=== PATIENT | female | born 1955 | race Caucasian/White ===

== ENCOUNTER 2017-03-09 08:32 | Inpatient (IN) | payer OTHER, MEDICARE ==
[2017-03-09] VITALS (12 sets, daily range): BP systolic 116–156; BP diastolic 54–71; PULSE 67–83; RESP 13–25; TEMP 97.6–98.4; O2SAT 95–99
[~2017-03-09] VITALS: Ht 165.1 cm; Wt 103.7 kg
[~2017-03-09 08:32] MED LIST: GEMF600T PO; GLUC1000 PO; HYDR12.57 PO; MULTCAP OR; PRAV40TA2 PO; TIZA4CAP PO; TRAM50TA PO; WARF1TAB PO
[2017-03-09] MEDS ORDERED: GLIP5TAB8 PO (09:01)
[2017-03-09] MEDS ORDERED: XARE20TA PO (09:01)
[2017-03-09] MEDS ORDERED: METF500T PO (09:01)
[2017-03-09] MEDS ORDERED: TIZA4CAP3 PO (09:01)
[2017-03-09] MEDS ORDERED: HYDR-3535 PO (09:01)
[2017-03-09] MEDS ORDERED: CANA300T PO (09:01)
[2017-03-09] MEDS ORDERED: DIVA250T PO (09:01)
[2017-03-09] MEDS ORDERED: GABA300C5 PO (09:01)
[2017-03-09 09:51] LABS: AUTOMATED NEUTROPHIL # 4.2 TH/MM3 (1.8-7.7); BASOPHIL # 0.1 TH/MM3 (0-0.2); EOSINOPHIL # 0.1 TH/MM3 (0-0.4); EOSINOPHIL % 1.4 % (0.0-4.0); HEMATOCRIT 44.9 % (35.0-46.0); HEMO FLAGS DIFF FINAL; LYMPH % 22.9 % (9.0-44.0); LYMPHOCYTE # 1.5 TH/MM3 (1.0-4.8); MEAN CELL VOLUME 88.7 FL (80.0-100.0); MEAN CORPUSCULAR HEMOGLOBIN 29.4 PG (27.0-34.0); MEAN CORPUSCULAR HGB CONC 33.1 % (32.0-36.0); NEUT % 66.7 % (16.0-70.0); PLATELET COUNT 149 TH/MM3 (150-450); RED BLOOD COUNT 5.06 MIL/MM3 (4.00-5.30); RED CELL DISTRIBUTION WIDTH 12.9 % (11.6-17.2); WHITE BLOOD COUNT 6.3 TH/MM3 (4.0-11.0)
[2017-03-09] MEDS ORDERED: SODIUM CHLOR 0.9% 1000 ML INJ 1,000 ML IV SCH (10:00)
[2017-03-09 10:01] LABS: APTT (PATIENT) 24.6 SEC (24.3-30.1); INTERNATIONAL NORMALIZED RATIO 0.9 RATIO; PROTHROMBIN TIME - PATIENT 9.9 SEC (9.8-11.6)
[2017-03-09 10:16] LABS: BICARBONATE 25.4 MEQ/L (21.0-32.0)
[2017-03-09 10:23] LABS: POTASSIUM 4.3 MEQ/L (3.5-5.1)
[2017-03-09] MEDS ORDERED: fentaNYL CITRATE 250 MCG/5 ML AMP ONE (11:02)
[2017-03-09] MEDS ORDERED: MIDAZOLAM HCL 5 MG/5 ML VIAL ONE (11:02)
[2017-03-09] MEDS ORDERED: STERILE WATER FOR INJECTION 10 ML VIAL ONE (12:11)
[2017-03-09] MEDS ORDERED: HEPARIN-D5W INJ 250 ML ONE (12:46)
[2017-03-09] MEDS ORDERED: IOHEXOL 350 MG/ML 100 ML BTL (for Cath Lab) OTHER ONE (13:08)
[2017-03-09] MEDS ORDERED: MORPHINE SULFATE 4 MG/ML INJ IV PRN (14:15)
[2017-03-09] MEDS ORDERED: ONDANSETRON HCL 4 MG/2 ML VIAL IV PRN ×2 (14:15→16:30)
[2017-03-09] MEDS ORDERED: Intra-Venous ALTEPLASE 10 MG/500 ML NS IV SCH ×2 (14:15)
[2017-03-09] MEDS ORDERED: HEPARIN 25,000 UNITS/250 ML D5W IV SCH (14:15)
[2017-03-09] MEDS: Intra-Venous SODIUM CHLORIDE 0.9% IV LINE 1000 ML IV SCH (14:15)
[2017-03-09] MEDS ORDERED: Intra-Venous HEPARIN 1,000 UNITS/500 ML NS (PRN) IV ×2 (14:15)
[2017-03-09] MEDS ORDERED: SENNOSIDES 8.6 MG TAB PO PRN (16:30)
[2017-03-09] MEDS ORDERED: DEXTROSE 50% IN WATER 50 ML VIAL(D50) IV PRN (16:30)
[2017-03-09] MEDS ORDERED: CHLORHEXIDINE GLUCONATE 2 % 1 PACK (2 CLOTHS) TOP PRN (16:30)
[2017-03-09] MEDS ORDERED: MAGNESIUM HYDROXIDE SUSP 30 ML CUP PO PRN (16:30)
[2017-03-09] MEDS ORDERED: RESP: ALBUTEROL 2.5 MG/IPRATROPIUM 0.5 MG NEB (PRN) INH (16:30)
[2017-03-09] MEDS ORDERED: ACETAMINOPHEN 325 MG TAB PO PRN (16:30)
[2017-03-09] MEDS ORDERED: MISCELLANEOUS NURSING INFORMATION XX SCH (16:30)
[2017-03-09] MEDS ORDERED: BISACODYL 10 MG SUPP RECTAL PRN (16:30)
[2017-03-09] MEDS ORDERED: LACTULOSE SYRUP 20 GM/30 ML CUP PO PRN (16:30)
[2017-03-09] MEDS ORDERED: GLUCAGON 1 MG/ML VIAL OTHER PRN (16:30)
--- NOTE | 2017-03-09 16:46 | RADRPT ---
EXAM DATE/TIME: 03/09/2017 11:18 COMPARISON: VENOGRAM IVC W RETRIEVABLE FILTER PLACEMENT, March 09, 2017, 11:18. INDICATIONS : Patient is in need of a pelvic venogram for evaluation of venous thrombus. MEDICAL HISTORY : History of left lower leg DVT, leg edema, peripheral neuropathy, DM. SURGICAL HISTORY : History of cervical fusion, hysterectomy, appendectomy, melanoma excision. ENCOUNTER: Initial ACUITY: 2 months PAIN SCORE: 5/10 LOCATION: Right shoulder, left leg FLUORO TIME: 7.8 minutes IMAGE SERIES: 13 ACCESS SITE: Left femoral vein SEDATION TIME: 110 minutes CONTRAST: 1.) 75 cc Omnipaque (iohexol) 350 MEDICATION(S): 1.) 5 mg midazolam (Versed) IV 2.) 250 mcg fentanyl (Sublimaze) IV DEVICE(S): 1.) inferior vena cava EV3 Infusion catheter 4Fr/ 20cm x 100cm PROCEDURE: 1. Ultrasound guided left common femoral vein catheterization 2. Iliac venography 3. Inferior venacavography 4. Inferior vena caval non-selective catheterization 5. Infusion for thrombolysis TECHNIQUE: The patient was placed supine on the angiography table. The left groin was prepped in sterile fashion . Full sterile technique was used, including cap, mask, sterile gloves and gown and a large sterile s heet. Hand hygiene and 2% chlorhexidine and/or betadine/alcohol prep was utilized per protocol for cu taneous antisepsis. The skin and subcutaneous tissues were infiltrated with lidocaine solution. Blunt dissection was utilized to free up the tissues superficial to the common femoral vein. Under direct ultrasound guidance, micropuncture access was accomplished into the common femoral vein allowing plac ement of a 7 Macedonian vascular sheath. The ultrasound images depicting access guidance were saved and s tored to PACS for permanent record. Iliac venography and inferior venacavography was performed. An angled catheter and Glidewire combinat ion was manipulated through an occluded left common iliac vein into the IVC and additional venography was performed. A 20 cm infusion length multiside hole catheter was introduced and positioned so as t o span the left iliac occlusion up into the clot filled IVC. The infusion catheter and sheath were se cured. The patient was taken to recovery in satisfactory stable condition. An inferior vena caval zena ter was placed concomitantly. Please see that separate report for additional details. FINDINGS: The left common iliac vein is totally occluded with flow through multiple transpelvic collaterals to the right iliac system reconstituting flow into the IVC. The occlusion was traversed with little diff iculty, some slight resistance met at the right common iliac artery level suggesting a May Thurner co nfiguration underlying stenosis. A large filling defect present in the inferior vena cava from the il iac venous confluence up to the level of the renal veins was noted consistent with nonocclusive throm bus. CONCLUSION: Ileocaval venous thrombosis as described. Thrombolytic therapy has been initiated. We will followup t he venographic appearance in the morning. Jaret Garzon MD on March 09, 2017 at 16:25 Board Certified Radiologist. This report was verified electronically.
[2017-03-09 16:47] LABS: AUTOMATED NEUTROPHIL # 2.7 TH/MM3 (1.8-7.7); BASOPHIL % 0.8 % (0.0-2.0); EOSINOPHIL # 0.1 TH/MM3 (0-0.4); EOSINOPHIL % 1.5 % (0.0-4.0); HEMATOCRIT 39.7 % (35.0-46.0); HEMO FLAGS DIFF FINAL; LYMPH % 36.2 % (9.0-44.0); LYMPHOCYTE # 1.8 TH/MM3 (1.0-4.8); MEAN CELL VOLUME 87.9 FL (80.0-100.0); MEAN CORPUSCULAR HEMOGLOBIN 29.7 PG (27.0-34.0); MEAN CORPUSCULAR HGB CONC 33.8 % (32.0-36.0); MONO % 7.2 % (0.0-8.0); NEUT % 54.3 % (16.0-70.0); PLATELET COUNT 133 TH/MM3 (150-450); RED BLOOD COUNT 4.52 MIL/MM3 (4.00-5.30); RED CELL DISTRIBUTION WIDTH 12.9 % (11.6-17.2); WHITE BLOOD COUNT 4.9 TH/MM3 (4.0-11.0)
--- NOTE | 2017-03-09 16:49 | RADRPT ---
EXAM DATE/TIME: 03/09/2017 11:18 [place] COMPARISON: No previous studies available for comparison. INDICATIONS : Patient is in need of placement of a retrievable vena cava filter due to venous thrombus. MEDICAL HISTORY : History of left lower leg DVT, leg edema, peripheral neuropathy, DM. SURGICAL HISTORY : History of cervical fusion, hysterectomy, appendectomy, melanoma excision. ENCOUNTER: Initial ACUITY: 2 months PAIN SCORE: 5/10 LOCATION: Right shoulder, left leg FLUORO TIME: 7.8 minutes IMAGE SERIES: 2 ACCESS SITE: Right Internal jugular vein SEDATION TIME: 110 minutes CONTRAST: 20 cc Omnipaque (iohexol) 350 MEDICATION(S): 1.) 5 mg midazolam (Versed) IV 2.) 250 mcg fentanyl (Sublimaze) IV DEVICE(S): 1.) IVC Bard Armida filter Jugular retrievable PROCEDURE : 1. Ultrasound-guided venipuncture. 2. Inferior venacavogram. 3. Inferior vena cava filter placement. 4. Conscious sedation with continuous EKG and oximetry monitoring. The risks, benefits and alternatives to the procedure were explained and verbal and written consent w as obtained. The site was prepped in sterile fashion. Full sterile technique was used, including ca p, mask, sterile gloves and gown and a large sterile sheet. Hand hygiene and 2% chlorhexidine and/or betadine/alcohol prep was utilized per protocol for cutaneous antisepsis. The skin and subcutaneous tissues were infiltrated with local anesthetic solution. With ultrasound and fluoroscopic guidance the targeted vein was punctured and a vascular sheath was p laced. Inferior venacavogram was performed. IVC thrombus was identified extending to a position just above the renal venous confluence. The supra renal cava is otherwise clear. A retrievable vena caval filter was placed in the suprarenal IVC. Foll owing deployment the filter was identified in good position. Conscious sedation was performed with the prescribed dosages and duration as above in the presence of an independent trained radiology nurse to assist in the monitoring of the patient. EKG and oximetry remained stable throughout the procedure. The patient tolerated the procedure well and there were n o complications. The patient was sent to post anesthesia recovery in stable condition. CONCLUSION: Uncomplicated inferior vena cava filter placement as above. Jaret Garzon MD on March 09, 2017 at 16:44 Board Certified Radiologist. This report was verified electronically.
[2017-03-09 16:59] LABS: APTT (PATIENT) 32.5 SEC (24.3-30.1)
--- NOTE | 2017-03-09 17:53 | HHI.HP ---
HPI Service Critical Care Medicine Primary Care Physician Domingo Macias MD Admission Diagnosis DVT Diagnosis: Chief Complaint: Left leg pain and swelling Travel History International Travel<30 Days: No Contact w/Intl Traveler <30 Da: No Traveled to Known Affected Are: No History of Present Illness 61 y/o woman with impressive family history of DVT problems presents with a swollen left leg. Found is extensive thrombosis of left iliac system up to the level of the renal veins. A retrievable IVC filter was placed above the caval clot and infusion catheter was placed in the thrombus via the left common femoral vein. Continuous tPA is now being infused through the groin catheter and peripheral heparin infusing as well. She has no complaints of SOB or chest pain. Her daughter is at the bedside and also has an IVC filter, as well as a few other family members. The patient states she had no problems with DVT during her pregnancies. Review of Systems Constitutional: DENIES: Diaphoretic episodes, Fatigue, Fever, Weight gain, Weight loss, Chills, Dizziness, Change in appetite, Night Sweats Endocrine: DENIES: Abnorml menstrual pattern, Heat/cold intolerance, Polydipsia , Polyuria, Polyphagia Eyes: DENIES: Blurred vision, Diplopia, Eye inflammation, Eye pain, Vision loss , Photosensitivity, Double Vision Ears, nose, mouth, throat: DENIES: Tinnitus, Hearing loss, Vertigo, Nasal discharge, Oral lesions, Throat pain, Hoarseness, Ear Pain, Running Nose, Epistaxis, Sinus Pain, Toothache, Odynophagia Respiratory: DENIES: Apneas, Cough, Snoring, Wheezing, Hemoptysis, Sputum production, Shortness of breath Cardiovascular: COMPLAINS OF: Lower Extremity Edema, DENIES: Chest pain, Palpitations, Syncope, Dyspnea on Exertion, PND, Orthopnea, Claudication Gastrointestinal: DENIES: Abdominal pain, Black stools, Bloody stools, Constipation, Diarrhea, Nausea, Vomiting, Difficulty Swallowing, Anorexia Musculoskeletal: DENIES: Joint pain, Muscle aches, Stiffness, Joint Swelling, Back pain, Neck pain Integumentary: DENIES: Abnormal pigmentation, Pruritus, Rash, Nail changes, Breast masses, Breast skin changes, Nipple discharge Immunologic/allergic: DENIES: Eczema, Urticaria Past Family Social History Allergies: Coded Allergies: Bactrim (Verified Allergy, Severe, Hives, 03/09/17) Cipro (Verified Allergy, Severe, HIVES, 03/09/17) Physical Exam Vital Signs Vital Signs Date Time Temp Pulse Resp B/P Pulse Ox O2 Delivery O2 Flow Rate FiO2 03/09/17 16:30 68 18 128/67 98 03/09/17 16:30 98 Room Air 03/09/17 15:15 98 Room Air 03/09/17 15:15 67 18 116/54 98 03/09/17 14:45 69 20 125/68 97 03/09/17 14:45 96 Room Air 03/09/17 14:00 96 Room Air 03/09/17 14:00 70 20 136/67 96 03/09/17 13:54 80 20 143/70 96 03/09/17 13:10 98.3 68 20 141/69 96 03/09/17 13:10 96 Room Air 03/09/17 08:51 98.3 83 20 122/71 98 03/09/17 08:49 98 Room Air Physical Exam Gen: Calm Head: Normal. Neck: Supple, no stridor. Dry dressing right anterior neck. Lungs: Clear, no wheezes or crackles. Comfortable pattern. Heat: NL S1S2, no m,r. No JVD. Abdomen: Soft, no guarding. No tenderness, BS active. Extremities: Warm, well perfused. Generalized swelling left leg. Neuro: O X 3, alert, cooperative. M/S grossly intact. Speech clear. Laboratory Laboratory Tests Test 03/09/17 03/09/17 09:27 16:10 White Blood Count 6.3 4.9 Red Blood Count 5.06 4.52 Hemoglobin 14.9 13.4 Hematocrit 44.9 39.7 Mean Corpuscular Volume 88.7 87.9 Mean Corpuscular Hemoglobin 29.4 29.7 Mean Corpuscular Hemoglobin 33.1 33.8 Concent Red Cell Distribution Width 12.9 12.9 Platelet Count 149 133 Mean Platelet Volume 9.2 9.0 Neutrophils (%) (Auto) 66.7 54.3 Lymphocytes (%) (Auto) 22.9 36.2 Monocytes (%) (Auto) 8.0 7.2 Eosinophils (%) (Auto) 1.4 1.5 Basophils (%) (Auto) 1.0 0.8 Neutrophils # (Auto) 4.2 2.7 Lymphocytes # (Auto) 1.5 1.8 Monocytes # (Auto) 0.5 0.4 Eosinophils # (Auto) 0.1 0.1 Basophils # (Auto) 0.1 0.0 CBC Comment DIFF FINAL DIFF FINAL Differential Comment Prothrombin Time 9.9 Prothromb Time International 0.9 Ratio Activated Partial 24.6 32.5 Thromboplast Time Sodium Level 131 Potassium Level 4.3 Chloride Level 100 Carbon Dioxide Level 25.4 Anion Gap 6 Blood Urea Nitrogen 10 Creatinine 0.71 Estimat Glomerular Filtration 83 Rate Random Glucose 347 Calcium Level 9.1 Fibrinogen 275 Result Diagram: 03/09/17 1610 03/09/17 0927 Imaging Venography - DVT extending from left iliofemoral system up to renal veins. Assessment and Plan Assessment and Plan Assessment: 1. Extensive deep venous thrombosis left leg, extending to level of renal veins. 2. IVC filter placement from neck approach. 3. DM, Type 2 Plan: 1. Directed tPA infusion. 2. Peripheral heparin infusion. 3. Hold oral diabetes agents. 4. SSI for euglycemia q4h. 5. strict bed rest. 6. Richards. 7. Protonix. 8. No SCDs. Overall impression: Emergency insertion IVC filter and thrombolytic therapy for large left leg/vena caval thrombus. Patient normotensive and well perfused. Normal respiratory status. Wero Miner MD Mar 09, 2017 17:53
[2017-03-09] MEDS: MORPHINE SULFATE 4 MG/ML INJ IV PRN ×3 (18:05→22:35)
[2017-03-09] MEDS: DOCUSATE SODIUM 50 MG/SENNA 8.6 MG TAB PO SCH (20:32)
[2017-03-09] MEDS: GABAPENTIN 300 MG CAP PO SCH (20:32)
[2017-03-09] MEDS: FAMOTIDINE 20 MG TAB PO SCH (20:32)
[2017-03-09] MEDS: DIVALPROEX SODIUM DELAYED RELEASE 250 MG TAB PO SCH (21:01)
[2017-03-09] MEDS: INSULIN ASPART SUPPLEMENTAL SCALE SQ SCH (21:08)
[2017-03-09] MEDS: ACETAMINOPHEN/HYDROcodone 325 MG/10 MG TAB PO PRN (22:35)
[2017-03-10] VITALS (10 sets, daily range): BP systolic 103–147; BP diastolic 57–65; PULSE 66–83; RESP 10–18; TEMP 97.4–98.5; O2SAT 93–96
[2017-03-10 02:08] LABS: APTT (PATIENT) 26.8 SEC (24.3-30.1)
[2017-03-10] MEDS: CHLORHEXIDINE GLUCONATE 2 % 1 PACK (2 CLOTHS) TOP SCH (04:00)
[2017-03-10] MEDS: MORPHINE SULFATE 4 MG/ML INJ IV PRN ×3 (05:38→17:31)
[2017-03-10] MEDS: ACETAMINOPHEN/HYDROcodone 325 MG/10 MG TAB PO PRN ×3 (05:38→20:54)
[2017-03-10] MEDS: INSULIN ASPART SUPPLEMENTAL SCALE SQ SCH ×6 (05:40→22:31)
[2017-03-10] MEDS: FAMOTIDINE 20 MG TAB PO SCH ×2 (09:30→20:54)
[2017-03-10] MEDS: DIVALPROEX SODIUM DELAYED RELEASE 250 MG TAB PO SCH ×2 (09:30→20:54)
[2017-03-10] MEDS: DOCUSATE SODIUM 50 MG/SENNA 8.6 MG TAB PO SCH ×2 (09:30→20:54)
[2017-03-10] MEDS: GABAPENTIN 300 MG CAP PO SCH ×2 (09:30→20:54)
[2017-03-10] MEDS ORDERED: fentaNYL CITRATE 250 MCG/5 ML AMP ONE (10:06)
[2017-03-10] MEDS ORDERED: MIDAZOLAM HCL 5 MG/5 ML VIAL ONE (10:06)
[2017-03-10] MEDS ORDERED: IOHEXOL 350 MG/ML 100 ML BTL (for Cath Lab) IV ONE (11:45)
[2017-03-10] MEDS: Intra-Venous SODIUM CHLORIDE 0.9% IV LINE 1000 ML IV SCH (12:16)
[2017-03-10] MEDS ORDERED: HEPARIN 25,000 UNITS-D5W 250 ML - PREMIX IV SCH (13:00)
--- NOTE | 2017-03-10 14:07 | PD.TRANSFR ---
Transfer Summary Admission Date Mar 09, 2017 at 16:55 Transfer Date: Mar 10, 2017 Admitting Diagnosis DVT Diagnoses: Significant Findings Acute thrombosis left iliofemoral system and IVC. Transfer Summary/Subjective 61 y/o woman with impressive family history of DVT problems presents with a swollen left leg. Found is extensive thrombosis of left iliac system up to the level of the renal veins. A retrievable IVC filter was placed above the caval clot and infusion catheter was placed in the thrombus via the left common femoral vein. Continuous tPA is now being infused through the groin catheter and peripheral heparin infusing as well. She has no complaints of SOB or chest pain. Her daughter is at the bedside and also has an IVC filter, as well as a few other family members. The patient states she had no problems with DVT during her pregnancies. 03/10: Vena Cava thrombus successfully lysed and IVC filter removed. Patient has undiagnosed familial clotting problem. She formed this potentially lethal clot while on xarelto. We will keep her on a heparin infusion and ask the Hematology Service to make recommendations for ongoing prevention. Update: Note from Hematology reviewed and appreciated. Dr. Garzon from feels she can be switched to Pradaxa anytime now. I will start Pradaxa in a.m. and stop heparin drip one hour later. Objective Vital Signs Date Time Temp Pulse Resp B/P Pulse Ox O2 Delivery O2 Flow Rate FiO2 03/10/17 09:00 19 03/10/17 08:00 98.2 66 135/62 96 03/10/17 07:00 Room Air 03/09/17 16:30 99 Intake and Output 03/09/17 03/09/17 03/10/17 08:00 16:00 00:00 Intake Total 540 ml 819 ml Output Total 400 ml 900 ml Balance 140 ml -81 ml Result Diagram: 03/09/17 1610 03/09/17 0927 Imaging Venography - DVT extending from left iliofemoral system up to renal veins. Objective Remarks Gen: Calm Head: Normal. Neck: Supple, no stridor. Dry dressing right anterior neck. Lungs: Clear, no wheezes or crackles. Comfortable pattern. Heat: NL S1S2, no m,r. No JVD. Abdomen: Soft, no guarding. No tenderness, BS active. Extremities: Warm, well perfused. Generalized swelling left leg. Neuro: O X 3, alert, cooperative. M/S grossly intact. Speech clear. A/P Assessment and Plan Assessment: 1. Extensive deep venous thrombosis left leg, extending to level of renal veins. 2. IVC filter placement from neck approach. 3. DM, Type 2 Plan: 1. Directed tPA infusion. 2. Peripheral heparin infusion. 3. Hold oral diabetes agents. 4. SSI for euglycemia q4h. 5. strict bed rest. 6. Richards. 7. Protonix. 8. No SCDs. Overall impression: Emergency insertion IVC filter and thrombolytic therapy for large left leg/vena caval thrombus. Patient normotensive and well perfused. Normal respiratory status. Wero Miner MD Mar 10, 2017 14:07
--- NOTE | 2017-03-10 17:53 | PD.RAD ---
Post Procedure Progress Note Pre Procedure Diagnosis: (1) DVT (deep venous thrombosis) Post Procedure Diagnosis: (1) DVT (deep venous thrombosis) Procedure Date: Mar 10, 2017 Supervising Radiologist: Jaret Garzon Anesthesia: Local, Conscious Sedation Plan of Activity Patient to Unit: Critical Care Patient Condition: Good See PACS Report for procedural detail/treatment Vascular-Venous Procedure Procedure 1 Procedure Site: Abdominal Procedure(s): Angioplasty, Venogram Access Access Site(s): Left Femoral Vein Closure Site(s): Right manual pressure, Left manual pressure Sheath(s) Remaining: Right Jugular Vein Findings: IVC thrombus resolved left iliac vein stenosis treated with PIPELINER IVC filter removed Plan IV heparin hypercoagulability w/u and plan for long-term anticoagulation strategy d/w Jaret Cohen MD Mar 10, 2017 17:53
[2017-03-10 19:12] LABS: AUTOMATED NEUTROPHIL # 5.3 TH/MM3 (1.8-7.7); BASOPHIL % 0.6 % (0.0-2.0); EOSINOPHIL % 0.4 % (0.0-4.0); HEMATOCRIT 38.9 % (35.0-46.0); HEMO FLAGS DIFF FINAL; LYMPH % 19.2 % (9.0-44.0); LYMPHOCYTE # 1.4 TH/MM3 (1.0-4.8); MEAN CELL VOLUME 87.9 FL (80.0-100.0); MONO % 6.1 % (0.0-8.0); NEUT % 73.7 % (16.0-70.0); PLATELET COUNT 121 TH/MM3 (150-450); RED BLOOD COUNT 4.42 MIL/MM3 (4.00-5.30); RED CELL DISTRIBUTION WIDTH 12.5 % (11.6-17.2); WHITE BLOOD COUNT 7.2 TH/MM3 (4.0-11.0)
[2017-03-10 19:20] LABS: APTT (PATIENT) 35.8 SEC (24.3-30.1)
--- NOTE | 2017-03-10 20:32 | MB ---
cc: SCOOTER PEGUERO M.D. DATE OF CONSULTATION: 03/10/2017. REASON FOR CONSULTATION: Hematology was consulted to render opinion regarding a patient with recurrent DVT while on Xarelto. ATTENDING PHYSICIAN: Dr. Miner. HISTORY OF PRESENT ILLNESS: The patient is a very pleasant 61-year-old female with history of left lower extremity venous thrombosis brought into the hospital for thrombolysis and thrombectomy. She had a left lower extremity deep venous thrombosis around 2004. She was treated with Coumadin for several years and reportedly her level was difficult to titrate. She was then switched to Xarelto when Xarelto was available and she has been on Xarelto since then. She stated a few years ago she had ultrasound which still showed residual clots in the left lower extremity, although she was not symptomatic. She said about six months ago her left lower extremity started swelling up but it waxed and waned. Around December her swelling became more persistent. She was admitted to [facility] and she was found to have significant thrombosis of her left lower extremity. She was maintained on Xarelto and was referred to see Dr. Huizar. She was sent to the hospital for thrombolytic therapy. She had IVC filter placement and thrombolytic therapy. She is currently on heparin and states that her left lower extremity edema has significantly improved and it is no longer tender and she could not palpate the cord any more. She denies any constitutional symptoms. Denies any chest pain or palpitations. Denies any shortness of breath or cough. Denies any nausea, vomiting, diarrhea, or abdominal pain. She has a significant family history of deep venous thrombosis. PAST MEDICAL HISTORY: 1. Diabetes mellitus. 2. Fibromyalgia. 3. Degenerative disk disease. 4. Melanoma removed from right shoulder a few years ago. 5. Left lower extremity deep venous thrombosis around 2004 as noted above. PAST SURGICAL HISTORY: 1. Resection of right shoulder melanoma about 4 years ago. 2. Complete hysterectomy. 3. Appendectomy. 4. Tonsillectomy. FAMILY HISTORY: Multiple uncles and aunts as well as cousins on the mother's side had deep venous thrombosis. Her mother also had deep venous thrombosis. Her daughter has a deep venous thrombosis but hypercoagulable testing reportedly was negative. She has two sisters. SOCIAL HISTORY: Smoked half-a-pack a day for 30 years. Denies tobacco use. She is disabled. She lives with her . ALLERGIES: 1. BACTRIM. 2. CIPRO. CURRENT MEDICATIONS: 1. Heparin. 2. Depakote. 3. Gabapentin. 4. Pepcid. 5. Tia-Colace. 6. Zanaflex. REVIEW OF SYSTEMS: CONSTITUTIONAL: Negative. EYES: Negative. ENT: Negative. CARDIOVASCULAR: As above. RESPIRATORY: Negative. GI: Negative. : Negative. MUSCULOSKELETAL: Negative. HEMATOLOGIC: As above. ENDOCRINE: Negative. DERMATOLOGIC: Negative. PSYCHIATRIC: Negative. NEUROLOGIC: Negative. PHYSICAL EXAMINATION: VITAL SIGNS: Temperature 98.1, blood pressure 135/65, O2 saturation 93% room air. GENERAL: She is alert and oriented times three and in no acute distress. HEAD, EYES, EARS, NOSE, THROAT: Atraumatic, normocephalic. Pupils equal, round, reactive to light. Extraocular muscles intact. No scleral icterus. OROPHARYNX: Dry mucosa. No lesions. No thrush. No mucositis. NECK: No thyromegaly. No palpable mass. LYMPHATIC: No palpable cervical, clavicular, axillary or inguinal lymph nodes. CARDIOVASCULAR: Regular S1 and S2. No murmur. LUNGS: Clear to auscultation. No wheezing or rhonchi. ABDOMEN: Abdomen soft and nontender. I could not palpate the liver or spleen. EXTREMITIES: No cyanosis. No clubbing. Her left lower extremity edema has significantly improved. Calf tenderness also has improved. SKIN: No rash or petechiae. NEUROLOGIC EXAM: Nonfocal. LABORATORY DATA: CBC within normal limits. Creatinine 0.71. Platelet count 121,000. ASSESSMENT: 1. Recurrent left lower extremity deep venous thrombosis. She was first diagnosed with left lower extremity venous thrombosis around 2004. The patient was on Coumadin for several years but reportedly the level was difficult to titrate. She was then switched to Xarelto and has been on Xarelto since. She stated she has multiple family members on the mother's side who have had deep venous thrombosis. Her daughter also has had deep venous thrombosis but hypercoagulable testing on her was negative. The patient stated that a year ago she had ultrasound of left lower extremity and was told she had a residual clots. Around six months ago, she started having swelling of left lower extremity and it became persistent in December. She was admitted to the [facility] and ultrasound showed recurrent left lower extremity venous thrombosis. The patient was maintained on Xarelto. She was referred to see Dr. Huizar and subsequently referred to [facility] for thrombolytic therapy. Her ultrasound reportedly showed extensive thrombosis of the left iliac venous system, She had an IVC filter placement and thrombolytic therapy yesterday. She is now on heparin. Her lower extremity edema has resolved and the tenderness also has resolved. She has responded very well. It looks like she has failed Xarelto. I had an extensive discussion with her and her daughter regarding other anticoagulation options. I told her she can go back to Coumadin but she does not want to retry Coumadin. The other option I recommend would be Pradaxa which is a direct thrombin inhibitor and it has a different mechanism of action from Xarelto. She is interested in trying Pradaxa. She will continue heparin for now. Once interventional radiology feels that she can be switched over to an oral agent, then we can start her on Pradaxa. They had many questions today, which were answered. 2. Diabetes mellitus. 3. History of melanoma right shoulder status post resection abut four years ago. No apparent recurrent disease. 4. Fibromyalgia. 5. Degenerative disc disease. 6. Chronic pain. RECOMMENDATIONS: 1. I had an extensive discussion with the patient and her daughter. 2. Continue heparin and when interventional radiology feels the patient can be switched over to an oral agent, we could start her on Pradaxa. Thank you Dr. Miner for asking us to see this patient. MD GEMA Singh/LOIS /7:53 PM /8:21 PM YANET
[2017-03-11] MEDS: MORPHINE SULFATE 4 MG/ML INJ IV PRN ×3 (00:49→20:28)
[2017-03-11] MEDS: INSULIN ASPART SUPPLEMENTAL SCALE SQ SCH ×6 (01:01→21:57)
[2017-03-11 01:39] LABS: APTT (PATIENT) 60.2 SEC (24.3-30.1)
[2017-03-11] MEDS: CHLORHEXIDINE GLUCONATE 2 % 1 PACK (2 CLOTHS) TOP SCH (04:00)
[2017-03-11] MEDS: ACETAMINOPHEN/HYDROcodone 325 MG/10 MG TAB PO PRN ×3 (05:06→18:12)
[2017-03-11 05:55] VITALS: BP 115/60; PULSE 72; RESP 16; TEMP 98.2; O2SAT 93
[2017-03-11] MEDS ORDERED: MISCELLANEOUS NURSING INFORMATION OTHER ONE (07:30)
--- NOTE | 2017-03-11 08:10 | PD.ONC.PN ---
Subjective Subjective Remarks Afebrile overnight C/o pain in R shoulder Denies SOB "I feel better than when I came in" Objective Data Date Time Temp Pulse Resp B/P Pulse Ox O2 Delivery O2 Flow Rate FiO2 03/11/17 05:55 98.2 72 16 115/60 93 03/10/17 20:00 98.0 76 18 120/57 93 03/10/17 17:27 98.1 80 18 135/65 93 03/10/17 16:00 98.5 83 16 147/64 93 03/10/17 15:00 77 03/10/17 12:00 97.4 74 18 120/60 94 03/10/17 09:00 19 03/10/17 08:00 98.2 66 13 135/62 96 Result Diagram: 03/10/17 1846 03/09/17 0927 Laboratory Results Laboratory Tests Test 03/10/17 03/11/17 18:46 00:35 White Blood Count 7.2 TH/MM3 Red Blood Count 4.42 MIL/MM3 Hemoglobin 12.8 GM/DL Hematocrit 38.9 % Mean Corpuscular Volume 87.9 FL Mean Corpuscular Hemoglobin 29.0 PG Mean Corpuscular Hemoglobin 33.0 % Concent Red Cell Distribution Width 12.5 % Platelet Count 121 TH/MM3 Mean Platelet Volume 9.0 FL Neutrophils (%) (Auto) 73.7 % Lymphocytes (%) (Auto) 19.2 % Monocytes (%) (Auto) 6.1 % Eosinophils (%) (Auto) 0.4 % Basophils (%) (Auto) 0.6 % Neutrophils # (Auto) 5.3 TH/MM3 Lymphocytes # (Auto) 1.4 TH/MM3 Monocytes # (Auto) 0.4 TH/MM3 Eosinophils # (Auto) 0.0 TH/MM3 Basophils # (Auto) 0.0 TH/MM3 CBC Comment DIFF FINAL Differential Comment Activated Partial 35.8 SEC 60.2 SEC Thromboplast Time Fibrinogen 242 mg/dL Administered Medications Medications (Trade) Dose Ordered Sig/Lynnette Route PRN Reason Start Time Stop Time Status Last Admin Dose Admin Morphine Sulfate (Morphine Inj) 2 mg Q10M PRN IV PAIN SCALE 1 TO 4 03/09/17 14:15 03/09/17 14:50 Morphine Sulfate (Morphine Inj) 4 mg Q10M PRN IV PAIN SCALE 5 TO 10 03/09/17 14:15 03/11/17 00:49 Divalproex Sodium (Depakote Dr) 250 mg BID PO 03/09/17 21:00 03/10/17 20:54 Gabapentin (Neurontin) 300 mg BID PO 03/09/17 21:00 03/10/17 20:54 Acetaminophen/ Hydrocodone Bitart ([place] 10-325 Mg) 1 tab Q6H PRN PO PAIN 6-10 03/09/17 16:15 03/11/17 05:06 Tizanidine HCl (Zanaflex) 4 mg TID PO 03/09/17 18:00 03/10/17 17:31 Insulin Aspart (NovoLOG SUPPLEMENTAL SCALE) 1 Q4HR SQ 03/09/17 20:00 03/11/17 01:01 Morphine Sulfate (Morphine Inj) 2 mg Q2H PRN IV BREAKTHROUGH PAIN SCALE 6-10 03/09/17 16:30 03/10/17 17:31 Famotidine (Pepcid) 20 mg Q12HR PO 03/09/17 21:00 03/10/17 20:54 Ondansetron HCl (Zofran Inj) 4 mg Q6H PRN IV NAUSEA OR VOMITING 03/09/17 16:30 03/10/17 16:13 Chlorhexidine Gluconate (Chlorhexidine 2% Cloth) 3 pack Taper DAILY@04 TOP 03/10/17 04:00 03/06/18 03:59 03/10/17 04:00 Senna/Docusate Sodium (Tia-Colace) 1 tab BID PO 03/09/17 21:00 03/10/17 20:54 Objective Remarks GENERAL: Tired appearing older female resting in bed in no distress. SKIN: Warm and dry. HEAD: Normocephalic. EYES: No injection or drainage. NECK: Supple, trachea midline. CARDIOVASCULAR: +S1/S2. RESPIRATORY: Clear anteriorly. Breathing unlabored. GASTROINTESTINAL: Abdomen soft, non-tender, nondistended. EXTREMITIES: LLE edematous (known DVT) MUSCULOSKELETAL: Generalized weakness. NEUROLOGICAL: Awake, alert. Normal speech. Moving all extremities. Assessment/Plan Problem List: (1) DVT (deep venous thrombosis) Status: Acute Plan: --Pt with strong family history of DVT on Xarelto -- Found to have extensive clot in LLE -- First DVT was diagnosed in 2004. Assessment 61 y/o woman with history of DVT on Xarelto was found to have new, extensive blood clot. Plan 1. Will transition today from Heparin to Pradaxa. 2. She will need lifelong anticoagulation due to high risk of DVT recurrence. 3. Monitor CBC. 4. Monitor for bleeding. Attending Statement The exam, history, and the medical decision-making described in the above note were completed with the assistance of the mid-level provider. I reviewed and agree with the findings presented. I attest that I had a [id number] encounter with the patient on the same day, and personally performed and documented my assessment and findings in the medical record. 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 No CP/SOB. Started on Pradaxa. Continue to monitor. Problem Qualifiers (1) DVT (deep venous thrombosis): Divya Cueto Mar 11, 2017 08:10 Jose A Waller MD Mar 11, 2017 12:19
[2017-03-11] MEDS: FAMOTIDINE 20 MG TAB PO SCH ×2 (08:13→20:28)
[2017-03-11] MEDS: DOCUSATE SODIUM 50 MG/SENNA 8.6 MG TAB PO SCH ×2 (08:13→20:28)
[2017-03-11] MEDS: GABAPENTIN 300 MG CAP PO SCH ×2 (08:13→20:28)
[2017-03-11] MEDS: DABIGATRAN ETEXILATE 150 MG CAP PO SCH ×2 (08:13→20:28)
[2017-03-11 08:14] LABS: APTT (PATIENT) 75.3 SEC (24.3-30.1)
[2017-03-11] MEDS: DIVALPROEX SODIUM DELAYED RELEASE 250 MG TAB PO SCH ×2 (08:14→21:00)
[2017-03-11 08:21] VITALS: BP 112/64; PULSE 75; RESP 18; TEMP 98.4; O2SAT 93
[2017-03-11 12:07] VITALS: BP 116/61; PULSE 78; RESP 18; TEMP 98.8; O2SAT 94
--- NOTE | 2017-03-11 15:54 | HHI.PR ---
Subjective Remarks Patient complained of some right shoulder discomfort, she requested some warm pads No chest pain or short of breath Plan: To change heparin drip to Pradaxa by hospital nurse today Objective Vitals Vital Signs Date Time Temp Pulse Resp B/P Pulse Ox O2 Delivery O2 Flow Rate FiO2 03/11/17 12:07 98.8 78 18 116/61 94 03/11/17 08:21 98.4 75 18 112/64 93 03/11/17 05:55 98.2 72 16 115/60 93 03/10/17 20:00 98.0 76 18 120/57 93 03/10/17 17:27 98.1 80 18 135/65 93 03/10/17 16:00 98.5 83 16 147/64 93 I/O 03/10/17 03/10/17 03/10/17 03/11/17 03/11/17 03/11/17 07:00 15:00 23:00 07:00 15:00 23:00 Intake Total 0 ml 466 ml 120 ml 393 ml Output Total 201 ml Balance 0 ml 265 ml 120 ml 393 ml Intake Oral 0 ml 240 ml 120 ml 265 ml IV Total 226 ml 128 ml Output Urine Total 200 ml Emesis 1 ml # Voids 1 1 1 2 1 # Bowel Movements 0 0 Result Diagram: 03/10/17 1846 03/09/17 0927 Objective Remarks GENERAL: This is a well-nourished, well-developed patient, in no apparent distress. SKIN: No rashes, warm and dry HEAD: Atraumatic. Normocephalic. EYES: Pupils equal round and reactive. Extraocular motions intact. No scleral icterus. ENT: Nose without bleeding, or drainage, Airway patent. NECK: Trachea midline. Supple CARDIOVASCULAR: Regular rate and rhythm positive 2/6 systolic murmur RESPIRATORY: Fair air entry bilaterally. No wheezes, rales, or rhonchi. GASTROINTESTINAL: Abdomen soft, non-tender, nondistended. Positive bowel sounds MUSCULOSKELETAL: Extremities without clubbing, cyanosis, or edema. Pedal pulses appreciated NEUROLOGICAL: Awake and alert. Moves all extremity. Normal speech.no focal neurological deficit A/P Assessment and Plan - Extensive deep venous thrombosis left leg, extending to level of renal veins. - IVC filter placement from neck approach. - DM, Type 2 Plan: Status post Directed tPA infusion. Peripheral heparin infusion. Now on Pradaxa, appreciate hematology consultation, plan to continue monitoring further recommendation per hematology Hold oral diabetes agents. Accu-Chek with SSI for euglycemia q4h. strict bed rest, to start PT when okay with hematology Protonix. No SCDs. Ted Andrade MD Mar 11, 2017 15:54
[2017-03-11 16:42] VITALS: BP 97/51; PULSE 65; RESP 17; TEMP 96.3; O2SAT 95
[2017-03-11 20:00] VITALS: BP 133/61; PULSE 70; RESP 18; TEMP 97.9; O2SAT 94
[2017-03-12] MEDS: ACETAMINOPHEN/HYDROcodone 325 MG/10 MG TAB PO PRN ×4 (00:12→21:43)
[2017-03-12 00:14] VITALS: BP 120/56; PULSE 67; RESP 18; TEMP 97.4; O2SAT 94
[2017-03-12] MEDS: CHLORHEXIDINE GLUCONATE 2 % 1 PACK (2 CLOTHS) TOP SCH (04:00)
[2017-03-12 04:15] VITALS: BP 140/63; PULSE 70; RESP 18; TEMP 97.4; O2SAT 94
[2017-03-12] MEDS: MORPHINE SULFATE 4 MG/ML INJ IV PRN ×4 (04:39→23:06)
[2017-03-12] MEDS: INSULIN ASPART SUPPLEMENTAL SCALE SQ SCH ×5 (04:40→21:49)
[2017-03-12 08:18] VITALS: BP 119/62; PULSE 66; RESP 19; TEMP 97.7; O2SAT 96
[2017-03-12] MEDS: DIVALPROEX SODIUM DELAYED RELEASE 250 MG TAB PO SCH ×2 (09:00→21:42)
[2017-03-12] MEDS: DOCUSATE SODIUM 50 MG/SENNA 8.6 MG TAB PO SCH ×2 (09:00→21:00)
[2017-03-12] MEDS: FAMOTIDINE 20 MG TAB PO SCH ×2 (09:00→21:42)
[2017-03-12] MEDS: GABAPENTIN 300 MG CAP PO SCH ×2 (09:03→21:43)
[2017-03-12] MEDS: DABIGATRAN ETEXILATE 150 MG CAP PO SCH ×2 (09:03→21:43)
--- NOTE | 2017-03-12 10:19 | PD.ONC.PN ---
Subjective Subjective Remarks Afebrile overnight. Tired of being on bedrest Has some mild pain in left calf Objective Data Date Time Temp Pulse Resp B/P Pulse Ox O2 Delivery O2 Flow Rate FiO2 03/12/17 08:18 97.7 66 19 119/62 96 03/12/17 04:15 97.4 70 18 140/63 94 03/12/17 00:14 97.4 67 18 120/56 94 03/11/17 20:00 97.9 70 18 133/61 94 03/11/17 16:42 96.3 65 17 97/51 95 03/11/17 12:07 98.8 78 18 116/61 94 03/12/17 03/12/17 03/12/17 07:00 15:00 23:00 Intake Total 50 ml Balance 50 ml Result Diagram: 03/10/17 1846 03/09/17926 Laboratory Results Laboratory Tests Test 03/11/17 13:00 Fibrinogen 306 mg/dL Administered Medications Medications (Trade) Dose Ordered Sig/Lynnette Route PRN Reason Start Time Stop Time Status Last Admin Dose Admin Morphine Sulfate (Morphine Inj) 2 mg Q10M PRN IV PAIN SCALE 1 TO 4 03/09/17 14:15 03/09/17 14:50 Morphine Sulfate (Morphine Inj) 4 mg Q10M PRN IV PAIN SCALE 5 TO 10 03/09/17 14:15 03/11/17 08:13 Divalproex Sodium (Depakote Dr) 250 mg BID PO 03/09/17 21:00 03/12/17 09:00 Gabapentin (Neurontin) 300 mg BID PO 03/09/17 21:00 03/12/17 09:03 Acetaminophen/ Hydrocodone Bitart ([place] 10-325 Mg) 1 tab Q6H PRN PO PAIN 6-10 03/09/17 16:15 03/12/17 09:03 Tizanidine HCl (Zanaflex) 4 mg TID PO 03/09/17 18:00 03/12/17 09:03 Insulin Aspart (NovoLOG SUPPLEMENTAL SCALE) 1 Q4HR SQ 03/09/17 20:00 03/12/17 04:40 Morphine Sulfate (Morphine Inj) 2 mg Q2H PRN IV BREAKTHROUGH PAIN SCALE 6-10 03/09/17 16:30 03/12/17 04:39 Famotidine (Pepcid) 20 mg Q12HR PO 03/09/17 21:00 03/12/17 09:00 Ondansetron HCl (Zofran Inj) 4 mg Q6H PRN IV NAUSEA OR VOMITING 03/09/17 16:30 03/10/17 16:13 Chlorhexidine Gluconate (Chlorhexidine 2% Cloth) 3 pack Taper DAILY@04 TOP 03/10/17 04:00 03/06/18 03:59 03/10/17 04:00 Senna/Docusate Sodium (Tia-Colace) 1 tab BID PO 03/09/17 21:00 03/11/17 20:28 Dabigatran (Pradaxa) 150 mg Q12H PO 03/11/17 08:00 03/12/17 09:03 Objective Remarks GENERAL: Tired appearing older female resting in bed in no distress. SKIN: Warm and dry. HEAD: Normocephalic. EYES: No injection or drainage. NECK: Supple, trachea midline. CARDIOVASCULAR: +S1/S2. 3/6 murmur noted at the left sternal border RESPIRATORY: Clear anteriorly. Breathing unlabored. GASTROINTESTINAL: Abdomen soft, non-tender, nondistended. EXTREMITIES: LLE edematous (known DVT) MUSCULOSKELETAL: Generalized weakness. NEUROLOGICAL: Awake, alert. Normal speech. Moving all extremities. Assessment/Plan Problem List: (1) DVT (deep venous thrombosis) Status: Acute Plan: --Pt with strong family history of DVT on Xarelto -- Found to have extensive clot in LLE -- First DVT was diagnosed in 2004. Assessment 61 y/o woman with history of DVT on Xarelto was found to have new, extensive blood clot. Plan 1. Tolerating for Pradaxa okay 2. Okay for bathroom privileges. 3. Monitor CBC. 4. Monitor for bleeding. Attending Statement The exam, history, and the medical decision-making described in the above note were completed with the assistance of the mid-level provider. I reviewed and agree with the findings presented. I attest that I had a [id number] encounter with the patient on the same day, and personally performed and documented my assessment and findings in the medical record. C/o more pain in left LE, no significant edema. Now on pradaxa and no sign of bleeding. With increased pain, will get US to make sure she has no recurrent clot. Problem Qualifiers (1) DVT (deep venous thrombosis): Divya Cueto Mar 12, 2017 10:19 Jose A Waller MD Mar 12, 2017 12:48
[2017-03-12 12:05] VITALS: BP 115/64; PULSE 75; RESP 18; TEMP 98.1; O2SAT 96
[2017-03-12 13:32] LABS: HEMATOCRIT 37.9 % (35.0-46.0); MEAN CELL VOLUME 88.8 FL (80.0-100.0); MEAN CORPUSCULAR HEMOGLOBIN 29.2 PG (27.0-34.0); MEAN CORPUSCULAR HGB CONC 32.9 % (32.0-36.0); PLATELET COUNT 107 TH/MM3 (150-450); RED BLOOD COUNT 4.27 MIL/MM3 (4.00-5.30); RED CELL DISTRIBUTION WIDTH 12.8 % (11.6-17.2); REVIEW FLAG FINAL; WHITE BLOOD COUNT 5.5 TH/MM3 (4.0-11.0)
[2017-03-12 13:47] LABS: BICARBONATE 30.1 MEQ/L (21.0-32.0); POTASSIUM 3.8 MEQ/L (3.5-5.1)
[2017-03-12 16:23] VITALS: BP 104/68; PULSE 77; RESP 18; TEMP 98.3; O2SAT 97
--- NOTE | 2017-03-12 16:57 | RADRPT ---
EXAM DATE/TIME: 03/12/2017 16:22 [place] COMPARISON: No previous studies available for comparison. INDICATIONS : Left leg pain. MEDICAL HISTORY : Hypercholesterolemia. Arthritis. History of left lower leg DVT, leg edema, peripheral neuropathy, DM. Cerebrovascular accident. Fibromyalgia. Diabetes. Carcinoma, melanoma. SURGICAL HISTORY : Appendectomy. Hysterectomy. History of cervical fusion, hysterectomy, appendectomy, melanoma excisi on. ENCOUNTER: Initial ACUITY: 4 - 6 months PAIN SCORE: 7/10 LOCATION: Left leg. TECHNIQUE: Venous ultrasound of the leg was performed from the inguinal ligament to the proximal calf. Real-jose e, color Doppler and spectral tracing, compression and augmentation techniques were used. FINDINGS: There is thrombus in the common femoral, greater saphenous, popliteal, and posterior tibial veins. Th e femoral vein is patent. CONCLUSION: Thrombus throughout much of the left lower extremity venous structures as described above. Thrombus i s not seen in the femoral vein. aJret Garcia MD on March 12, 2017 at 16:52 Board Certified Radiologist. This report was verified electronically.
--- NOTE | 2017-03-12 17:18 | HHI.PR ---
Subjective Remarks Patient still complaining of her left lower extremity pain No fever or chills or chest pain She start of being bed Hematology following Objective Vitals Vital Signs Date Time Temp Pulse Resp B/P Pulse Ox O2 Delivery O2 Flow Rate FiO2 03/12/17 16:23 98.3 77 18 104/68 97 03/12/17 12:05 98.1 75 18 115/64 96 03/12/17 08:18 97.7 66 19 119/62 96 03/12/17 04:15 97.4 70 18 140/63 94 03/12/17 00:14 97.4 67 18 120/56 94 03/11/17 20:00 97.9 70 18 133/61 94 I/O 03/11/17 03/11/17 03/11/17 03/12/17 03/12/17 03/12/17 07:00 15:00 23:00 07:00 15:00 23:00 Intake Total 393 ml 50 ml Balance 393 ml 50 ml Intake Oral 265 ml 50 ml IV Total 128 ml # Voids 2 1 5 1 1 2 # Bowel Movements 2 0 Result Diagram: 03/12/17 1302 03/12/17 1302 Objective Remarks GENERAL: This is a well-nourished, well-developed patient, in no apparent distress. SKIN: No rashes, warm and dry HEAD: Atraumatic. Normocephalic. EYES: Pupils equal round and reactive. Extraocular motions intact. No scleral icterus. ENT: Nose without bleeding, or drainage, Airway patent. NECK: Trachea midline. Supple CARDIOVASCULAR: Regular rate and rhythm positive 2/6 systolic murmur RESPIRATORY: Fair air entry bilaterally. No wheezes, rales, or rhonchi. GASTROINTESTINAL: Abdomen soft, non-tender, nondistended. Positive bowel sounds MUSCULOSKELETAL: Extremities without clubbing, cyanosis, or edema. Pedal pulses appreciated NEUROLOGICAL: Awake and alert. Moves all extremity. Normal speech.no focal neurological deficit A/P Assessment and Plan - Extensive deep venous thrombosis left leg, extending to level of renal veins. - IVC filter placement from neck approach. - DM, Type 2 Plan: Ultrasound of the left lower extremity has been ordered by hematology Status post Directed tPA infusion. And heparin drip, switched to Pradaxa appreciate hematology consultation, plan to continue monitoring further recommendation per hematology Hold oral diabetes agents. Accu-Chek with SSI for euglycemia q4h. strict bed rest, to start PT when okay with hematology Protonix. No SCDs. Ted Andrade MD Mar 12, 2017 17:18
[2017-03-12 21:15] VITALS: BP 120/58; PULSE 76; RESP 19; TEMP 99.3; O2SAT 95
[2017-03-13] VITALS: BP_SYST 103; BP_SYST 126; BP_DIAS 54; BP_DIAS 79; PULSE 65; PULSE 67; RESP 20; TEMP 97.3; TEMP 97.5; O2SAT 97
[2017-03-13] MEDS: INSULIN ASPART SUPPLEMENTAL SCALE SQ SCH ×7 (00:39→23:50)
[2017-03-13] MEDS: MORPHINE SULFATE 4 MG/ML INJ IV PRN ×7 (03:03→23:56)
[2017-03-13 04:00] VITALS: BP 126/79; PULSE 65; RESP 20; TEMP 97.5; O2SAT 97
[2017-03-13] MEDS: CHLORHEXIDINE GLUCONATE 2 % 1 PACK (2 CLOTHS) TOP SCH (04:00)
[2017-03-13] MEDS: ACETAMINOPHEN/HYDROcodone 325 MG/10 MG TAB PO PRN ×3 (04:01→19:15)
[2017-03-13 08:00] VITALS: BP 114/60; PULSE 68; RESP 20; TEMP 98.2; O2SAT 96
[2017-03-13] MEDS: DOCUSATE SODIUM 50 MG/SENNA 8.6 MG TAB PO SCH ×2 (08:12→20:43)
[2017-03-13] MEDS: FAMOTIDINE 20 MG TAB PO SCH ×2 (08:12→20:42)
[2017-03-13] MEDS: DIVALPROEX SODIUM DELAYED RELEASE 250 MG TAB PO SCH ×2 (08:12→20:43)
[2017-03-13] MEDS: GABAPENTIN 300 MG CAP PO SCH ×2 (08:12→20:42)
[2017-03-13] MEDS: DABIGATRAN ETEXILATE 150 MG CAP PO SCH ×2 (08:12→20:42)
[2017-03-13 08:42] LABS: HEMATOCRIT 40.5 % (35.0-46.0); MEAN CELL VOLUME 88.1 FL (80.0-100.0); MEAN CORPUSCULAR HEMOGLOBIN 29.4 PG (27.0-34.0); MEAN CORPUSCULAR HGB CONC 33.3 % (32.0-36.0); PLATELET COUNT 123 TH/MM3 (150-450); RED BLOOD COUNT 4.59 MIL/MM3 (4.00-5.30); RED CELL DISTRIBUTION WIDTH 12.8 % (11.6-17.2); REVIEW FLAG FINAL; WHITE BLOOD COUNT 5.7 TH/MM3 (4.0-11.0)
--- NOTE | 2017-03-13 09:46 | PD.ONC.PN ---
Subjective Subjective Remarks Afebrile overnight. Patient resting in bed in nad. Complaining of pain in the left leg, especially the calf. Tolerating Pradaxa. Objective Data Date Time Temp Pulse Resp B/P Pulse Ox O2 Delivery O2 Flow Rate FiO2 03/13/17 08:00 98.2 68 20 114/60 96 03/13/17 04:00 Room Air 03/13/17 04:00 97.5 65 20 126/79 97 03/13/17 00:00 97.3 67 20 103/54 97 03/13/17 00:00 Room Air 03/12/17 21:15 99.3 76 19 120/58 95 03/12/17 20:00 Room Air 03/12/17 16:23 98.3 77 18 104/68 97 03/12/17 13:29 17 03/12/17 12:05 98.1 75 18 115/64 96 03/12/17 10:03 18 Result Diagram: 03/13/17 0749 03/12/17 1302 Laboratory Results Laboratory Tests Test 03/12/17 03/12/17 03/13/17 13:02 18:26 07:49 White Blood Count 5.5 TH/MM3 5.7 TH/MM3 Red Blood Count 4.27 MIL/MM3 4.59 MIL/MM3 Hemoglobin 12.5 GM/DL 13.5 GM/DL Hematocrit 37.9 % 40.5 % Mean Corpuscular Volume 88.8 FL 88.1 FL Mean Corpuscular Hemoglobin 29.2 PG 29.4 PG Mean Corpuscular Hemoglobin 32.9 % 33.3 % Concent Red Cell Distribution Width 12.8 % 12.8 % Platelet Count 107 TH/MM3 123 TH/MM3 Mean Platelet Volume 8.8 FL 9.2 FL Sodium Level 136 MEQ/L Potassium Level 3.8 MEQ/L Chloride Level 102 MEQ/L Carbon Dioxide Level 30.1 MEQ/L Anion Gap 4 MEQ/L Blood Urea Nitrogen 9 MG/DL Creatinine 0.55 MG/DL Estimat Glomerular Filtration 112 ML/MIN Rate Random Glucose 260 MG/DL Calcium Level 8.7 MG/DL Fibrinogen 429 mg/dL Administered Medications Medications (Trade) Dose Ordered Sig/Lynnette Route PRN Reason Start Time Stop Time Status Last Admin Dose Admin Morphine Sulfate (Morphine Inj) 2 mg Q10M PRN IV PAIN SCALE 1 TO 4 03/09/17 14:15 03/09/17 14:50 Morphine Sulfate (Morphine Inj) 4 mg Q10M PRN IV PAIN SCALE 5 TO 10 03/09/17 14:15 03/11/17 08:13 Divalproex Sodium (Depakote Dr) 250 mg BID PO 03/09/17 21:00 03/13/17 08:12 Gabapentin (Neurontin) 300 mg BID PO 03/09/17 21:00 03/13/17 08:12 Acetaminophen/ Hydrocodone Bitart ([place] 10-325 Mg) 1 tab Q6H PRN PO PAIN 6-10 03/09/17 16:15 03/13/17 04:01 Tizanidine HCl (Zanaflex) 4 mg TID PO 03/09/17 18:00 03/13/17 08:12 Insulin Aspart (NovoLOG SUPPLEMENTAL SCALE) 1 Q4HR SQ 03/09/17 20:00 03/13/17 08:43 Morphine Sulfate (Morphine Inj) 2 mg Q2H PRN IV BREAKTHROUGH PAIN SCALE 6-10 03/09/17 16:30 03/13/17 08:12 Famotidine (Pepcid) 20 mg Q12HR PO 03/09/17 21:00 03/13/17 08:12 Ondansetron HCl (Zofran Inj) 4 mg Q6H PRN IV NAUSEA OR VOMITING 03/09/17 16:30 03/10/17 16:13 Chlorhexidine Gluconate (Chlorhexidine 2% Cloth) 3 pack Taper DAILY@04 TOP 03/10/17 04:00 03/06/18 03:59 03/10/17 04:00 Senna/Docusate Sodium (Tia-Colace) 1 tab BID PO 03/09/17 21:00 03/11/17 20:28 Dabigatran (Pradaxa) 150 mg Q12H PO 03/11/17 08:00 03/13/17 08:12 Objective Remarks GENERAL: Middle aged female upright in bed in [facility]. SKIN: Warm and dry. HEAD: Normocephalic. EYES: No injection or drainage. NECK: Supple, trachea midline. CARDIOVASCULAR: Regular rate and rhythm RESPIRATORY: Breath sounds equal bilaterally. No accessory muscle use. GASTROINTESTINAL: Abdomen soft, non-tender, nondistended. EXTREMITIES: No cyanosis. left leg edematous. NEUROLOGICAL: awake and alert, normal speech. moving all extremities. Assessment/Plan Problem List: (1) DVT (deep venous thrombosis) Status: Acute Plan: s/p TPA, on Pradaxa --Pt with strong family history of DVT on Xarelto -- Found to have extensive clot in LLE -- First DVT was diagnosed in 2004. Assessment 61 y/o woman with history of DVT on Xarelto was found to have new, extensive blood clot. Plan 1. continue Pradaxa 2. monitor CBC 3. supportive care Attending Statement The exam, history, and the medical decision-making described in the above note were completed with the assistance of the mid-level provider. I reviewed and agree with the findings presented. I attest that I had a [id number] encounter with the patient on the same day, and personally performed and documented my assessment and findings in the medical record. Still has pain in LLE, no swelling noted. US yesterday showed chronic DVT. Discussed with radiologist, there appear to have flow in the LLE venous system. Continue Pradaxa. Problem Qualifiers (1) DVT (deep venous thrombosis): Ana Pulido Mar 13, 2017 09:46 Jose A Waller MD Mar 13, 2017 12:56
[2017-03-13] MEDS: INSULIN DETEMIR 100 UNITS/ML VIAL SQ SCH ×2 (10:45→20:37)
[2017-03-13 12:00] VITALS: BP 118/58; PULSE 64; RESP 20; TEMP 98.4; O2SAT 96
[2017-03-13 16:00] VITALS: BP 105/52; PULSE 66; RESP 20; TEMP 97.3; O2SAT 96
--- NOTE | 2017-03-13 16:04 | HHI.PR ---
Subjective Remarks In general stable still having left leg pain, no nausea or vomiting or chest pain Blood sugar is not controlled will add basal insulin Objective Vitals Vital Signs Date Time Temp Pulse Resp B/P Pulse Ox O2 Delivery O2 Flow Rate FiO2 03/13/17 12:00 98.4 64 20 118/58 96 03/13/17 08:00 98.2 68 20 114/60 96 03/13/17 07:00 Room Air 03/13/17 04:00 Room Air 03/13/17 04:00 97.5 65 20 126/79 97 03/13/17 00:00 97.3 67 20 103/54 97 03/13/17 00:00 Room Air 03/12/17 21:15 99.3 76 19 120/58 95 03/12/17 20:00 Room Air 03/12/17 16:23 98.3 77 18 104/68 97 I/O 03/12/17 03/12/17 03/12/17 03/13/17 03/13/17 03/13/17 07:00 15:00 23:00 07:00 15:00 23:00 Intake Total 50 ml 600 ml Output Total 475 ml Balance 50 ml 125 ml Intake Oral 50 ml 600 ml Output Urine Total 475 ml # Voids 1 1 2 1 # Bowel Movements 0 0 Result Diagram: 03/13/17 0749 03/12/17 1302 Objective Remarks GENERAL: This is a well-nourished, well-developed patient, in no apparent distress. SKIN: No rashes, warm and dry HEAD: Atraumatic. Normocephalic. EYES: Pupils equal round and reactive. Extraocular motions intact. No scleral icterus. ENT: Nose without bleeding, or drainage, Airway patent. NECK: Trachea midline. Supple CARDIOVASCULAR: Regular rate and rhythm positive 2/6 systolic murmur RESPIRATORY: Fair air entry bilaterally. No wheezes, rales, or rhonchi. GASTROINTESTINAL: Abdomen soft, non-tender, nondistended. Positive bowel sounds MUSCULOSKELETAL: Extremities without clubbing, cyanosis, or edema. Pedal pulses appreciated NEUROLOGICAL: Awake and alert. Moves all extremity. Normal speech.no focal neurological deficit A/P Assessment and Plan - Extensive deep venous thrombosis left leg, extending to level of renal veins. - IVC filter placement from neck approach. - DM, Type 2 Plan: Ultrasound ordered by hematology confirmed extensive DVT Add Levemir 7 units twice a day and monitor Accu-Chek, cover with ISS Status post Directed tPA infusion. And heparin drip, switched to Pradaxa appreciate hematology consultation, plan to continue monitoring further recommendation per hematology Hold oral diabetes agents. Accu-Chek with SSI for euglycemia q4h. strict bed rest, to start PT when okay with hematology Protonix. No SCDs. Ted Andrade MD Mar 13, 2017 16:04
[2017-03-13 17:32] LABS: HEMOGLOBIN A1a 1.2 %; HEMOGLOBIN Ao 77.5 %; HEMOGLOBIN F 1.8 %; HEMOGLOBIN LA1C 2.3 %; HEMOGLOBIN P3 4.3 %
[2017-03-13 20:00] VITALS: BP 100/52; PULSE 61; RESP 20; TEMP 98.5; O2SAT 95
[2017-03-14] VITALS: BP 103/46; PULSE 66; RESP 20; TEMP 97.9; O2SAT 97
[2017-03-14] MEDS: ACETAMINOPHEN/HYDROcodone 325 MG/10 MG TAB PO PRN ×4 (02:02→23:05)
[2017-03-14 04:00] VITALS: BP 156/52; PULSE 66; RESP 20; TEMP 98.2; O2SAT 96
[2017-03-14] MEDS: INSULIN ASPART SUPPLEMENTAL SCALE SQ SCH ×5 (04:15→23:17)
[2017-03-14] MEDS: CHLORHEXIDINE GLUCONATE 2 % 1 PACK (2 CLOTHS) TOP SCH (04:16)
[2017-03-14] MEDS: MORPHINE SULFATE 4 MG/ML INJ IV PRN ×5 (04:18→20:04)
[2017-03-14] MEDS: INSULIN DETEMIR 100 UNITS/ML VIAL SQ SCH ×2 (08:12→23:18)
[2017-03-14] MEDS: GABAPENTIN 300 MG CAP PO SCH ×2 (08:16→23:02)
[2017-03-14] MEDS: DABIGATRAN ETEXILATE 150 MG CAP PO SCH ×2 (08:16→23:01)
[2017-03-14] MEDS: FAMOTIDINE 20 MG TAB PO SCH ×2 (08:18→23:02)
[2017-03-14] MEDS: DOCUSATE SODIUM 50 MG/SENNA 8.6 MG TAB PO SCH (08:19)
[2017-03-14] MEDS: DIVALPROEX SODIUM DELAYED RELEASE 250 MG TAB PO SCH ×2 (08:19→21:00)
[2017-03-14 08:24] VITALS: BP 136/65; PULSE 68; RESP 20; TEMP 98.4; O2SAT 96
--- NOTE | 2017-03-14 08:34 | PD.ONC.PN ---
Subjective Subjective Remarks No CP/SOB. LLE tenderness stable. Able to ambulate to bathroom. No bleeding. Objective Data Date Time Temp Pulse Resp B/P Pulse Ox O2 Delivery O2 Flow Rate FiO2 03/14/17 08:24 98.4 68 20 136/65 96 03/14/17 04:00 98.2 66 20 156/52 96 03/14/17 00:00 97.9 66 20 103/46 97 03/13/17 20:42 95 Room Air 03/13/17 20:00 98.5 61 20 100/52 95 03/13/17 16:00 97.3 66 20 105/52 96 03/13/17 12:00 98.4 64 20 118/58 96 Result Diagram: 03/13/17 0749 03/12/17 1302 Administered Medications Medications (Trade) Dose Ordered Sig/Lynnette Route PRN Reason Start Time Stop Time Status Last Admin Dose Admin Morphine Sulfate (Morphine Inj) 2 mg Q10M PRN IV PAIN SCALE 1 TO 4 03/09/17 14:15 03/09/17 14:50 Morphine Sulfate (Morphine Inj) 4 mg Q10M PRN IV PAIN SCALE 5 TO 10 03/09/17 14:15 03/14/17 08:20 Divalproex Sodium (Depakote Dr) 250 mg BID PO 03/09/17 21:00 03/14/17 08:19 Gabapentin (Neurontin) 300 mg BID PO 03/09/17 21:00 03/14/17 08:16 Acetaminophen/ Hydrocodone Bitart ([place] 10-325 Mg) 1 tab Q6H PRN PO PAIN 6-10 03/09/17 16:15 03/14/17 02:02 Tizanidine HCl (Zanaflex) 4 mg TID PO 03/09/17 18:00 03/14/17 08:18 Insulin Aspart (NovoLOG SUPPLEMENTAL SCALE) 1 Q4HR SQ 03/09/17 20:00 03/14/17 04:15 Morphine Sulfate (Morphine Inj) 2 mg Q2H PRN IV BREAKTHROUGH PAIN SCALE 6-10 03/09/17 16:30 03/14/17 04:18 Famotidine (Pepcid) 20 mg Q12HR PO 03/09/17 21:00 03/14/17 08:18 Ondansetron HCl (Zofran Inj) 4 mg Q6H PRN IV NAUSEA OR VOMITING 03/09/17 16:30 03/10/17 16:13 Chlorhexidine Gluconate (Chlorhexidine 2% Cloth) 3 pack Taper DAILY@04 TOP 03/10/17 04:00 03/06/18 03:59 03/10/17 04:00 Senna/Docusate Sodium (Tia-Colace) 1 tab BID PO 03/09/17 21:00 03/14/17 08:19 Dabigatran (Pradaxa) 150 mg Q12H PO 03/11/17 08:00 03/14/17 08:16 Insulin Detemir (Levemir Inj) 7 units Q12HR SQ 03/13/17 10:45 03/14/17 08:12 Objective Remarks GENERAL: Well-nourished, well-developed patient. SKIN: Warm and dry. HEAD: Normocephalic. EYES: No scleral icterus. No injection or drainage. NECK: Supple, trachea midline. No JVD or lymphadenopathy. LYMPHATIC: No adenopathy. CARDIOVASCULAR: Regular rate and rhythm without murmurs. RESPIRATORY: Breath sounds equal bilaterally. No accessory muscle use. GASTROINTESTINAL: Abdomen soft, non-tender, nondistended. EXTREMITIES: LLE churn tender, no palpable cord, no edema. MUSCULOSKELETAL: Adequate muscle tone. NEUROLOGICAL: No obvious focal deficit. Awake, alert, and oriented x3. PSYCHIATRIC: Appropriate mood and affect; insight and judgment normal. Assessment/Plan Problem List: (1) DVT (deep venous thrombosis) Status: Acute Plan: s/p TPA, on Pradaxa --Pt with strong family history of DVT on Xarelto -- Found to have extensive clot in LLE -- First DVT was diagnosed in 2004. -- tolerating Pradaxa, no bleeding. US 03/12 showed chronic DVT but still has flow in LLE venous system. Has pain in LLE likely phlebitis. Assessment 61 y/o woman with history of DVT on Xarelto was found to have new, extensive blood clot. Plan 1. continue Pradaxa 2. monitor CBC 3. She has f/u with next week. Problem Qualifiers (1) DVT (deep venous thrombosis): Jose A Waller MD Mar 14, 2017 08:34
[2017-03-14 12:23] VITALS: BP 116/64; PULSE 76; RESP 20; TEMP 97.8; O2SAT 95
--- NOTE | 2017-03-14 15:59 | HHI.PR ---
Subjective Remarks Patient doing well laying in bed, friend and the bedside Pain in the leg still there but it's more tolerable Hematology following CBC Objective Vitals Vital Signs Date Time Temp Pulse Resp B/P Pulse Ox O2 Delivery O2 Flow Rate FiO2 03/14/17 12:23 97.8 76 20 116/64 95 03/14/17 08:24 98.4 68 20 136/65 96 03/14/17 08:23 Room Air 03/14/17 04:00 98.2 66 20 156/52 96 03/14/17 00:00 97.9 66 20 103/46 97 03/13/17 20:42 95 Room Air 03/13/17 20:00 98.5 61 20 100/52 95 03/13/17 16:00 97.3 66 20 105/52 96 I/O 03/13/17 03/13/17 03/13/17 03/14/17 03/14/17 03/14/17 07:00 15:00 23:00 07:00 15:00 23:00 Intake Total 480 ml Balance 480 ml Intake Oral 480 ml # Voids 1 3 1 2 # Bowel Movements 0 Result Diagram: 03/13/17 0749 03/12/17 1302 Objective Remarks GENERAL: This is a well-nourished, well-developed patient, in no apparent distress. SKIN: No rashes, warm and dry HEAD: Atraumatic. Normocephalic. EYES: Pupils equal round and reactive. Extraocular motions intact. No scleral icterus. ENT: Nose without bleeding, or drainage, Airway patent. NECK: Trachea midline. Supple CARDIOVASCULAR: Regular rate and rhythm positive 2/6 systolic murmur RESPIRATORY: Fair air entry bilaterally. No wheezes, rales, or rhonchi. GASTROINTESTINAL: Abdomen soft, non-tender, nondistended. Positive bowel sounds MUSCULOSKELETAL: Extremities without clubbing, cyanosis, or edema. Pedal pulses appreciated NEUROLOGICAL: Awake and alert. Moves all extremity. Normal speech.no focal neurological deficit A/P Assessment and Plan - Extensive deep venous thrombosis left leg, extending to level of renal veins. - IVC filter placement from neck approach. - DM, Type 2 Plan: Hematology following CBC Blood glucose better controlled today Ultrasound ordered by hematology confirmed extensive DVT Status post Directed tPA infusion. And heparin drip, switched to Pradaxa Accu-Chek with SSI for euglycemia q4h. strict bed rest, to start PT when okay with hematology Protonix. No SCDs. Ted Andrade MD Mar 14, 2017 15:58
[2017-03-14 16:28] VITALS: BP 118/59; PULSE 74; RESP 20; TEMP 97.2; O2SAT 98
[2017-03-14 20:00] VITALS: BP 101/52; PULSE 68; RESP 18; TEMP 97.8; O2SAT 96
[2017-03-15] VITALS: BP 114/58; PULSE 68; RESP 18; TEMP 97.1; O2SAT 98
[2017-03-15] MEDS: MORPHINE SULFATE 4 MG/ML INJ IV PRN ×4 (00:26→20:55)
[2017-03-15] MEDS: INSULIN ASPART SUPPLEMENTAL SCALE SQ SCH ×6 (04:00→19:44)
[2017-03-15] MEDS: CHLORHEXIDINE GLUCONATE 2 % 1 PACK (2 CLOTHS) TOP SCH ×2 (04:00→22:55)
[2017-03-15] MEDS: ACETAMINOPHEN/HYDROcodone 325 MG/10 MG TAB PO PRN ×3 (05:41→18:36)
[2017-03-15 06:57] VITALS: BP 126/60; PULSE 71; RESP 18; TEMP 96.7; O2SAT 96
[2017-03-15 08:00] VITALS: BP 112/57; PULSE 64; RESP 20; TEMP 97.5; O2SAT 97
--- NOTE | 2017-03-15 08:23 | PD.ONC.PN ---
Subjective Subjective Remarks No CP/SOB. Ambulating more. LLE tenderness slightly better. Objective Data Date Time Temp Pulse Resp B/P Pulse Ox O2 Delivery O2 Flow Rate FiO2 03/15/17 06:57 96.7 71 18 126/60 96 03/15/17 00:00 97.1 68 18 114/58 98 03/14/17 20:00 97.8 68 18 101/52 96 03/14/17 16:28 97.2 74 20 118/59 98 03/14/17 12:23 97.8 76 20 116/64 95 03/14/17 08:24 98.4 68 20 136/65 96 03/14/17 08:23 Room Air Result Diagram: 03/13/17 0749 03/12/17 1302 Administered Medications Medications (Trade) Dose Ordered Sig/Lynnette Route PRN Reason Start Time Stop Time Status Last Admin Dose Admin Divalproex Sodium (Depakote Dr) 250 mg BID PO 03/09/17 21:00 03/14/17 21:00 Gabapentin (Neurontin) 300 mg BID PO 03/09/17 21:00 03/14/17 23:02 Acetaminophen/ Hydrocodone Bitart ([place] 10-325 Mg) 1 tab Q6H PRN PO PAIN 6-03/09/17 16:15 03/15/17 05:41 Tizanidine HCl (Zanaflex) 4 mg TID PO 03/09/17 18:00 03/14/17 16:46 Insulin Aspart (NovoLOG SUPPLEMENTAL SCALE) 1 Q4HR SQ 03/09/17 20:00 03/14/17 23:17 Morphine Sulfate (Morphine Inj) 2 mg Q2H PRN IV BREAKTHROUGH PAIN SCALE -03/09/17 16:30 03/14/17 04:18 Famotidine (Pepcid) 20 mg Q12HR PO 03/09/17 21:00 03/14/17 23:02 Ondansetron HCl (Zofran Inj) 4 mg Q6H PRN IV NAUSEA OR VOMITING 03/09/17 16:30 03/10/17 16:13 Chlorhexidine Gluconate (Chlorhexidine 2% Cloth) Taper DAILY@04 TOP 03/10/17 04:00 03/06/18 03:59 03/10/17 04:00 Senna/Docusate Sodium (Tia-Colace) 1 tab BID PO 03/09/17 21:00 03/14/17 08:19 Dabigatran (Pradaxa) 150 mg Q12H PO 03/11/17 08:00 03/14/17 23:01 Insulin Detemir (Levemir Inj) 7 units Q12HR SQ 03/13/17 10:45 03/14/17 23:18 Morphine Sulfate (Morphine Inj) 4 mg Q4H PRN IV PAIN SCALE 1 TO 4 03/14/17 16:15 03/15/17 00:26 Objective Remarks GENERAL: Well-nourished, well-developed patient. SKIN: Warm and dry. HEAD: Normocephalic. EYES: No scleral icterus. No injection or drainage. NECK: Supple, trachea midline. No JVD or lymphadenopathy. LYMPHATIC: No adenopathy. CARDIOVASCULAR: Regular rate and rhythm without murmurs. RESPIRATORY: Breath sounds equal bilaterally. No accessory muscle use. GASTROINTESTINAL: Abdomen soft, non-tender, nondistended. EXTREMITIES: No cyanosis, or edema. Tender LLE, left foot, no cyanosis. MUSCULOSKELETAL: Adequate muscle tone. NEUROLOGICAL: No obvious focal deficit. Awake, alert, and oriented x3. PSYCHIATRIC: Appropriate mood and affect; insight and judgment normal. Assessment/Plan Problem List: (1) DVT (deep venous thrombosis) Status: Acute Plan: s/p TPA, on Pradaxa --Pt with strong family history of DVT on Xarelto -- Found to have extensive clot in LLE -- First DVT was diagnosed in 2004. -- tolerating Pradaxa, no bleeding. US 03/12 showed chronic DVT but still has flow in LLE venous system. Has pain in LLE likely phlebitis. Slowly improving. Assessment 61 y/o woman with history of DVT on Xarelto was found to have new, extensive blood clot. Plan 1. continue Pradaxa 2. monitor CBC 3. She has f/u with next week. 4. Can be /dc tomorrow if remain stable. Problem Qualifiers (1) DVT (deep venous thrombosis): Jose A Waller MD Mar 15, 2017 08:23
[2017-03-15] MEDS: INSULIN DETEMIR 100 UNITS/ML VIAL SQ SCH ×2 (08:57→21:00)
[2017-03-15] MEDS: DABIGATRAN ETEXILATE 150 MG CAP PO SCH ×2 (08:59→19:44)
[2017-03-15] MEDS: DOCUSATE SODIUM 50 MG/SENNA 8.6 MG TAB PO SCH ×2 (09:00→20:55)
[2017-03-15] MEDS: DIVALPROEX SODIUM DELAYED RELEASE 250 MG TAB PO SCH ×2 (09:00→20:55)
[2017-03-15] MEDS: GABAPENTIN 300 MG CAP PO SCH ×2 (09:01→20:55)
[2017-03-15] MEDS: FAMOTIDINE 20 MG TAB PO SCH ×2 (09:01→20:54)
[2017-03-15 11:20] LABS: HEMATOCRIT 38.4 % (35.0-46.0); MEAN CELL VOLUME 87.9 FL (80.0-100.0); MEAN CORPUSCULAR HEMOGLOBIN 29.9 PG (27.0-34.0); PLATELET COUNT 153 TH/MM3 (150-450); RED BLOOD COUNT 4.37 MIL/MM3 (4.00-5.30); RED CELL DISTRIBUTION WIDTH 12.7 % (11.6-17.2); REVIEW FLAG FINAL; WHITE BLOOD COUNT 7.3 TH/MM3 (4.0-11.0)
[2017-03-15 12:40] VITALS: BP 114/51; PULSE 68; RESP 20; TEMP 97.9; O2SAT 97
--- NOTE | 2017-03-15 14:13 | HHI.PR ---
Subjective Remarks No acute issue beside feeling weak Platelet count is improving Hematology recommended discharging in a.m. if continued to be stable Objective Vitals Vital Signs Date Time Temp Pulse Resp B/P Pulse Ox O2 Delivery O2 Flow Rate FiO2 03/15/17 12:40 97.9 68 20 114/51 97 03/15/17 08:00 97.5 64 20 112/57 97 03/15/17 06:57 96.7 71 18 126/60 96 03/15/17 00:00 97.1 68 18 114/58 98 03/14/17 20:00 97.8 68 18 101/52 96 03/14/17 16:28 97.2 74 20 118/59 98 Result Diagram: 03/15/17 1016 03/12/17 1302 Objective Remarks GENERAL: This is a well-nourished, well-developed patient, in no apparent distress. SKIN: No rashes, warm and dry HEAD: Atraumatic. Normocephalic. EYES: Pupils equal round and reactive. Extraocular motions intact. No scleral icterus. ENT: Nose without bleeding, or drainage, Airway patent. NECK: Trachea midline. Supple CARDIOVASCULAR: Regular rate and rhythm positive 2/6 systolic murmur RESPIRATORY: Fair air entry bilaterally. No wheezes, rales, or rhonchi. GASTROINTESTINAL: Abdomen soft, non-tender, nondistended. Positive bowel sounds MUSCULOSKELETAL: Extremities without clubbing, cyanosis, or edema. Pedal pulses appreciated NEUROLOGICAL: Awake and alert. Moves all extremity. Normal speech.no focal neurological deficit A/P Assessment and Plan - Extensive deep venous thrombosis left leg, extending to level of renal veins. - IVC filter placement from neck approach. - DM, Type 2 Plan: Appreciate hematology help, recommended monitoring and DC in a.m. if stable Ultrasound ordered by hematology confirmed extensive DVT BG control with Levemir 7 units twice a day and monitor Accu-Chek, cover with ISS Status post Directed tPA infusion. And heparin drip, switched to Pradaxa appreciate hematology consultation, plan to continue monitoring further recommendation per hematology Hold oral diabetes agents. Accu-Chek with SSI for euglycemia q4h. strict bed rest, to start PT when okay with hematology Protonix. No SCDs. Ted Andrade MD Mar 15, 2017 14:13
[2017-03-15 16:29] VITALS: BP 123/58; PULSE 62; RESP 20; TEMP 96.8; O2SAT 97
[2017-03-15 20:00] VITALS: BP 98/50; PULSE 66; RESP 20; TEMP 97.8; O2SAT 97
[2017-03-16] VITALS: BP 113/61; PULSE 65; RESP 18; TEMP 96.5; O2SAT 96
[2017-03-16] MEDS: ACETAMINOPHEN/HYDROcodone 325 MG/10 MG TAB PO PRN ×3 (00:42→15:15)
[2017-03-16] MEDS: MORPHINE SULFATE 4 MG/ML INJ IV PRN ×3 (04:18→12:34)
[2017-03-16] MEDS: INSULIN ASPART SUPPLEMENTAL SCALE SQ SCH ×5 (04:21→18:33)
[2017-03-16 06:10] VITALS: BP 120/63; PULSE 77; RESP 20; TEMP 98; O2SAT 96
[2017-03-16] MEDS: DABIGATRAN ETEXILATE 150 MG CAP PO SCH (07:57)
[2017-03-16] MEDS: DIVALPROEX SODIUM DELAYED RELEASE 250 MG TAB PO SCH (07:57)
[2017-03-16] MEDS: GABAPENTIN 300 MG CAP PO SCH (07:57)
[2017-03-16] MEDS: DOCUSATE SODIUM 50 MG/SENNA 8.6 MG TAB PO SCH (07:58)
[2017-03-16] MEDS: FAMOTIDINE 20 MG TAB PO SCH (07:58)
[2017-03-16 08:20] VITALS: BP 130/66; PULSE 64; RESP 18; TEMP 97.1; O2SAT 96
[2017-03-16] MEDS: INSULIN DETEMIR 100 UNITS/ML VIAL SQ SCH (08:32)
--- NOTE | 2017-03-16 09:09 | RADRPT ---
EXAM DATE/TIME: 03/10/2017 09:55 [facility] COMPARISON: No previous studies available for comparison. INDICATIONS : Patient is in need of removal of exisitjng IVC filter as thrombolysis treatment has been completed. MEDICAL HISTORY : History of left lower leg DVT, leg edema, peripheral neuropathy, DM. SURGICAL HISTORY : History of retrievable IVC filter placement, cervical fusion, hysterectomy, appendectomy, melanoma ex cision. ENCOUNTER: Subsequent ACUITY: 1 week PAIN SCORE: 6/10 LOCATION: Right shoulder, left leg FLUORO TIME: 6.2 minutes IMAGE SERIES: 12 ACCESS SITE: Right Internal jugular vein SEDATION TIME: 90 minutes CONTRAST: 60 cc Omnipaque (iohexol) 350 MEDICATION(S): 1.) 5 mg midazolam (Versed) IV 2.) 250 mcg fentanyl (Sublimaze) IV PROCEDURE : 1. Ultrasound-guided venipuncture. 2. Nonselective catheterization, inferior vena cava 3. Inferior venacavography 4. Inferior vena caval filter retrieval. 5. Conscious sedation with continuous EKG and oximetry monitoring. The risks, benefits and alternatives to the procedure were explained and verbal and written consent w as obtained. The site was prepped in sterile fashion. Full sterile technique was used, including ca p, mask, sterile gloves and gown and a large sterile sheet. Hand hygiene and 2% chlorhexidine and/or betadine/alcohol prep was utilized per protocol for cutaneous antisepsis. The skin and subcutaneous tissues were infiltrated with local anesthetic solution. With ultrasound and fluoroscopic guidance the targeted vein was punctured and a vascular sheath was p laced. The inferior vena cava was catheterized. Inferior venacavogram was performed. The filter confi guration was found to be satisfactory for removal and no visible thrombus was identified to contraind icate removal. The filter was removed without difficulty. Conscious sedation was performed with the prescribed dosages and duration as above in the presence of an independent trained radiology nurse to assist in the monitoring of the patient. EKG and oximetry remained stable throughout the procedure. The patient tolerated the procedure well and there were n o complications. The patient was sent to post anesthesia recovery in stable condition. CONCLUSION: Uncomplicated inferior vena cava filter retrieval as above. Jaret Garzon MD on March 16, 2017 at 9:01 Board Certified Radiologist. This report was verified electronically.
--- NOTE | 2017-03-16 09:38 | PD.ONC.PN ---
Subjective Subjective Remarks Afebrile overnight Still having pain behind the left knee Otherwise no complaints Objective Data Date Time Temp Pulse Resp B/P Pulse Ox O2 Delivery O2 Flow Rate FiO2 03/16/17 08:20 97.1 64 18 130/66 96 03/16/17 06:10 98.0 77 20 120/63 96 03/16/17 00:00 96.5 65 18 113/61 96 03/15/17 20:00 Room Air 03/15/17 20:00 97.8 66 20 98/50 97 03/15/17 16:29 96.8 62 20 123/58 97 03/15/17 12:40 97.9 68 20 114/51 97 Result Diagram: 03/15/17 1016 03/12/17 1302 Laboratory Results Laboratory Tests Test 03/15/17 10:16 White Blood Count 7.3 TH/MM3 Red Blood Count 4.37 MIL/MM3 Hemoglobin 13.1 GM/DL Hematocrit 38.4 % Mean Corpuscular Volume 87.9 FL Mean Corpuscular Hemoglobin 29.9 PG Mean Corpuscular Hemoglobin 34.0 % Concent Red Cell Distribution Width 12.7 % Platelet Count 153 TH/MM3 Mean Platelet Volume 9.6 FL Administered Medications Medications (Trade) Dose Ordered Sig/Lynnette Route PRN Reason Start Time Stop Time Status Last Admin Dose Admin Divalproex Sodium (Depakote Dr) 250 mg BID PO 03/09/17 21:00 03/16/17 07:57 Gabapentin (Neurontin) 300 mg BID PO 03/09/17 21:00 03/16/17 07:57 Acetaminophen/ Hydrocodone Bitart ([place] 10-325 Mg) 1 tab Q6H PRN PO PAIN 6-10 03/09/17 16:15 03/16/17 07:59 Tizanidine HCl (Zanaflex) 4 mg TID PO 03/09/17 18:00 03/16/17 07:59 Insulin Aspart (NovoLOG SUPPLEMENTAL SCALE) 1 Q4HR SQ 03/09/17 20:00 03/16/17 04:21 Morphine Sulfate (Morphine Inj) 2 mg Q2H PRN IV BREAKTHROUGH PAIN SCALE 6-10 03/09/17 16:30 03/16/17 09:28 Famotidine (Pepcid) 20 mg Q12HR PO 03/09/17 21:00 03/16/17 07:58 Ondansetron HCl (Zofran Inj) 4 mg Q6H PRN IV NAUSEA OR VOMITING 03/09/17 16:30 03/10/17 16:13 Chlorhexidine Gluconate (Chlorhexidine 2% Cloth) Taper DAILY@04 TOP 03/10/17 04:00 03/06/18 03:59 03/10/17 04:00 Senna/Docusate Sodium (Tia-Colace) 1 tab BID PO 03/09/17 21:00 03/16/17 07:58 Dabigatran (Pradaxa) 150 mg Q12H PO 03/11/17 08:00 03/16/17 07:57 Insulin Detemir (Levemir Inj) 7 units Q12HR SQ 03/13/17 10:45 03/16/17 08:32 Morphine Sulfate (Morphine Inj) 4 mg Q4H PRN IV PAIN SCALE 1 TO 4 03/14/17 16:15 03/16/17 04:18 Objective Remarks GENERAL: Tired appearing older female resting in bed in no distress. SKIN: Warm and dry. HEAD: Normocephalic. EYES: No injection or drainage. NECK: Supple, trachea midline. CARDIOVASCULAR: +S1/S2. 3/6 murmur noted at the left sternal border RESPIRATORY: Clear anteriorly. Breathing unlabored. GASTROINTESTINAL: Abdomen soft, non-tender, nondistended. EXTREMITIES: LLE edematous (known DVT) MUSCULOSKELETAL: Generalized weakness. NEUROLOGICAL: Awake, alert. Normal speech. Moving all extremities. Assessment/Plan Problem List: (1) DVT (deep venous thrombosis) Status: Acute Plan: s/p TPA, on Pradaxa --Pt with strong family history of DVT on Xarelto -- Found to have extensive clot in LLE -- First DVT was diagnosed in 2004. -- tolerating Pradaxa, no bleeding. US 03/12 showed chronic DVT but still has flow in LLE venous system. Has pain in LLE likely phlebitis. Slowly improving. Assessment 61 y/o woman with history of DVT on Xarelto was found to have new, extensive blood clot. Plan 1. Okay for discharge from hematology standpoint 2. Patient will follow-up with Dr. Huizar as scheduled on the 3. Continue Pradaxa Attending Statement The exam, history, and the medical decision-making described in the above note were completed with the assistance of the mid-level provider. I reviewed and agree with the findings presented. I attest that I had a [id number] encounter with the patient on the same day, and personally performed and documented my assessment and findings in the medical record. No CP/SOB. LLE tenderness stable. No edema. Continue pradaxa. She can be d/c from hematology standpoint and f/u with . Problem Qualifiers (1) DVT (deep venous thrombosis): Divya Cueto Mar 16, 2017 09:38 Jose A Waller MD Mar 16, 2017 13:47
[2017-03-16 12:24] VITALS: BP 115/57; PULSE 61; RESP 18; TEMP 97; O2SAT 98
[2017-03-16] MEDS ORDERED: LEVEMIR SQ (14:57)
[2017-03-16] MEDS ORDERED: PRAD150C PO (14:57)
[2017-03-16] MEDS ORDERED: NOVOLOGSS SQ (14:57)
--- NOTE | 2017-03-16 15:04 | HHI.DS ---
Discharge Summary Admission Date Mar 09, 2017 at 16:55 Discharge Date: Mar 16, 2017 Admitting Diagnosis DVT (1) DVT (deep venous thrombosis) ICD Code: I82.409 (2) Hypertension ICD Code: I10 (3) Hyperlipidemia ICD Code: E78.5 (4) Diabetes mellitus ICD Code: E11.9 Procedures see below Brief History - From Admission 61 y/o woman with impressive family history of DVT problems presents with a swollen left leg. Found is extensive thrombosis of left iliac system up to the level of the renal veins. A retrievable IVC filter was placed above the caval clot and infusion catheter was placed in the thrombus via the left common femoral vein. Continuous tPA is now being infused through the groin catheter and peripheral heparin infusing as well. She has no complaints of SOB or chest pain. Her daughter is at the bedside and also has an IVC filter, as well as a few other family members. The patient states she had no problems with DVT during her pregnancies. CBC/BMP: 03/15/17 1016 03/12/17 1302 PE at Discharge GENERAL: This is a well-nourished, well-developed patient, in no apparent distress. SKIN: No rashes, warm and dry HEAD: Atraumatic. Normocephalic. EYES: Pupils equal round and reactive. Extraocular motions intact. No scleral icterus. ENT: Nose without bleeding, or drainage, Airway patent. NECK: Trachea midline. Supple CARDIOVASCULAR: Regular rate and rhythm positive 2/6 systolic murmur RESPIRATORY: Fair air entry bilaterally. No wheezes, rales, or rhonchi. GASTROINTESTINAL: Abdomen soft, non-tender, nondistended. Positive bowel sounds MUSCULOSKELETAL: Extremities without clubbing, cyanosis, or edema. Pedal pulses appreciated NEUROLOGICAL: Awake and alert. Moves all extremity. Normal speech.no focal neurological deficit Transfer Summary 61 y/o woman with impressive family history of DVT problems presents with a swollen left leg. Found is extensive thrombosis of left iliac system up to the level of the renal veins. A retrievable IVC filter was placed above the caval clot and infusion catheter was placed in the thrombus via the left common femoral vein. Continuous tPA is now being infused through the groin catheter and peripheral heparin infusing as well. She has no complaints of SOB or chest pain. Her daughter is at the bedside and also has an IVC filter, as well as a few other family members. The patient states she had no problems with DVT during her pregnancies. 03/10: Vena Cava thrombus successfully lysed and IVC filter removed. Patient has undiagnosed familial clotting problem. She formed this potentially lethal clot while on xarelto. We will keep her on a heparin infusion and ask the Hematology Service to make recommendations for ongoing prevention. Update: Note from Hematology reviewed and appreciated. Dr. Garzon from feels she can be switched to Pradaxa anytime now. I will start Pradaxa in a.m. and stop heparin drip one hour later. Hospital Course 61 years old female admitted with Extensive deep venous thrombosis left leg, extending to level of renal veins failed Xarelto.hematology consulted, status post IVC filter placement from neck approach, Status post Directed tPA infusion And heparin drip, then switched to Pradaxa. Ultrasound ordered by hematology confirmed extensive DVT patient also has a history of DM, Type 2, she was on metformin and glipizide and invokana, hemoglobin A1c was 11 not controlled I placed her on Levemir 7 units will discharge on this with metformin, she will need to follow up with her primary care physician to further adjust her regimen, she was advised to do a log and check her blood sugar 4 times a day at least Pt Condition on Discharge: Fair Discharge Disposition: Discharge Home Discharge Time: <= 30 minutes Discharge Instructions DIET: Follow Instructions for: Heart Healthy Diet Activities you can perform: Weight Bearing as [place] Follow up Referrals: Surgical - 1 Week with Zak Huizar MD New Medications: Dabigatran (Pradaxa) 150 Mg Cap 150 MG PO Q12H anticoag #60 CAP Insulin Aspart Inj (Novolog Inj) 100 Unit/Ml Inj 1 UNIT SQ Q4HR dm Days 30 INJECTION Insulin Detemir Inj (Levemir Inj) 1,000 unit/ 10 ML Vial 7 UNITS SQ Q12HR dm Days 30 INJECTION Continued Medications: Divalproex DR (Divalproex DR) 250 Mg Tabdr 250 MG PO BID Control Seizures #60 Ref 0 TAB Gabapentin (Gabapentin) 300 Mg Cap 300 MG PO BID #60 Ref 0 CAP Metformin (Metformin) 500 Mg Tab 500 MG PO DAILY With a meal Blood Sugar Management #30 Ref 0 TAB Discontinued Medications: Rivaroxaban (Xarelto) 20 Mg Tab 20 MG PO DAILY Blood Clot Prevention Ref 0 TAB Ted Andrade MD Mar 16, 2017 15:04
--- NOTE | 2017-03-16 15:17 | RADRPT ---
EXAM DATE/TIME: 03/10/2017 09:55 [facility] COMPARISON: No previous studies available for comparison. INDICATIONS : Patient is in need of a follow up venogram with intervention due to extensive venous thrombus. MEDICAL HISTORY : History of left lower leg DVT, leg edema, peripheral neuropathy, DM. SURGICAL HISTORY : History of retrievable IVC filter placement, cervical fusion, hysterectomy, appendectomy, melanoma ex cision. ENCOUNTER: Subsequent ACUITY: 1 week PAIN SCORE: 6/10 LOCATION: right shoulder and left leg FLUORO TIME: 6.2 minutes IMAGE SERIES: 12 ACCESS SITE: Left femoral vein SEDATION TIME: 90 minutes CONTRAST: 1.) 60 cc Omnipaque (iohexol) 350 MEDICATION(S): 1.) 5 mg midazolam (Versed) IV 2.) 250 mcg fentanyl (Sublimaze) IV DEVICE(S): 1.) Left vein iliac [employer] balloon BS Plastic Surgery Specialist 10mm x 80mm x 75cm PROCEDURE : 1. Conscious sedation with continuous EKG and Oximetry monitoring. 2. followup venography through existing sheath, left iliac vein 3. Angiography of the inferior vena cava 4. angioplasty, left iliac vein The risks, benefits and alternatives to the procedure were explained and verbal and written consent w as obtained. The site was prepped in sterile fashion. Full sterile technique was used, including ca p, mask, sterile gloves and gown and a large sterile sheet. Hand hygiene and 2% chlorhexidine and/or betadine/alcohol prep was utilized per protocol for cutaneous antisepsis. The skin and subcutaneous tissues were infiltrated with local anesthetic solution. An angled Glidewire was manipulated through the existing infusion catheter to maintain access into th e IVC. The infusion catheter was removed. The left femoral sheath was used to perform followup venogr aphy. This revealed persistent diffuse stenosis of the left iliac vein. IVC appeared to be completely patent however with interval resolution of IVC thrombus. Direct injection into the IVC a for visuali zation of the upper IVC reveals no thrombus present within the inferior vena caval filter. A 10 mm x 8 cm Plastic Surgery Specialist angioplasty balloon was used to dilate the left iliac venous stenosis. 2 separ ate areas of significant waisting of the balloon were noted.. 2 separate prolonged balloon inflations were utilized, yielding an excellent result with wide patency of the iliac and near complete elimina tion of collateral venous filling. The left femoral sheath was removed and the venotomy closed with manual compression. The patient tole rated the procedure well and was taken to recovery in stable condition after removal of the vena cava l filter. See that separate report for complete details. Conscious sedation was performed with the prescribed dosages and duration as above in the presence of an independent trained radiology nurse to assist in the monitoring of the patient. EKG and oximetry remained stable throughout the procedure. CONCLUSION: Successful thrombolysis of inferior vena caval clot. Angioplasty treatment of left iliac venous stenosis. Jaret Garzon MD on March 16, 2017 at 15:06 Board Certified Radiologist. This report was verified electronically.
[2017-03-16 16:06] VITALS: BP 127/59; PULSE 70; RESP 18; TEMP 96.2; O2SAT 96
== END 2017-03-16 18:37 | disposition home or self-care (01) | DRG 253 ==
LOC: HROP 08:32 → HRIP 08:35 → HROP 16:55 → N03B 16:55 → N05A 03-10 17:09
PROVIDERS: ADMIT Hospitalist; ATTEND Hospitalist
PROC: 06H03DZ Insertion of Intraluminal Device into Inferior Vena Cava, Percutaneous Approach (ICD-10-PCS; principal; 2017-03-09)
PROC: B51G1ZZ Fluoroscopy of Left Pelvic (Iliac) Veins using Low Osmolar Contrast (ICD-10-PCS; 2017-03-09)
PROC: 3E03317 Introduction of Other Thrombolytic into Peripheral Vein, Percutaneous Approach (ICD-10-PCS; 2017-03-09)
PROC: B5191ZZ Fluoroscopy of Inferior Vena Cava using Low Osmolar Contrast (ICD-10-PCS; 2017-03-09)
PROC: 067D3ZZ Dilation of Left Common Iliac Vein, Percutaneous Approach (ICD-10-PCS; 2017-03-16)
PROC: 06PY3DZ Removal of Intraluminal Device from Lower Vein, Percutaneous Approach (ICD-10-PCS; 2017-03-16)
PROC: B5191ZZ Fluoroscopy of Inferior Vena Cava using Low Osmolar Contrast (ICD-10-PCS; 2017-03-16)
DX: I82.422 Acute embolism and thrombosis of left iliac vein (principal); I87.1 Compression of vein; D68.8 Other specified coagulation defects; I10 Essential (primary) hypertension; E11.9 Type 2 diabetes mellitus without complications; Z82.49 Family history of ischemic heart disease and other diseases of the circulatory system; Z79.84 Long term (current) use of oral hypoglycemic drugs; Z86.718 Personal history of other venous thrombosis and embolism; Z79.02 Long term (current) use of antithrombotics/antiplatelets; Z85.820 Personal history of malignant melanoma of skin; M79.7 Fibromyalgia; F17.210 Nicotine dependence, cigarettes, uncomplicated; E78.5 Hyperlipidemia, unspecified
CPT/HCPCS: 36010; 37191; 37193; 37212; 37213; 37220; 37222; 75820; 75825; 76937; 80048; 82948; 83036; 85025; 85027; 85384; 85610; 85730; 87641; 93971; 99152; 99153; C1725; C1757; C1769; C1773; C1880; C1894; J1644; J1815; J2250; J2270; J2405; J2997; J3010; J7030; J7040; Q9967

== ENCOUNTER 2017-03-22 11:31 | Inpatient (IN) | payer OTHER, MEDICARE ==
[2017-03-22] VITALS (7 sets, daily range): BP systolic 13–152; BP diastolic 65–89; PULSE 78–103; RESP 18–20; TEMP 99–99.1; O2SAT 95–100
[~2017-03-22] VITALS: Ht 162.6 cm; Wt 68.3 kg
[~2017-03-22 11:31] MED LIST changes: +CANA300T PO; +DIVA250T PO; +GABA300C5 PO; -GEMF600T PO; +GLIP5TAB8 PO; -GLUC1000 PO; +HYDR-3535 PO; -HYDR12.57 PO; +LEVEMIR SQ; +METF500T PO; -MULTCAP OR; +NOVOLOGSS SQ; +PRAD150C PO; -PRAV40TA2 PO; -TIZA4CAP PO; +TIZA4CAP3 PO; -TRAM50TA PO; -WARF1TAB PO
--- NOTE | 2017-03-22 11:56 | PD ---
HPI Chief Complaint: Respiratory Symptoms Time Seen by Provider: 11:56 Travel History International Travel<30 days: No Contact w/Intl Traveler<30days: No Traveled to known affect area: No History of Present Illness HPI 61-year-old female with history of TIA, diabetes, melanoma, DVT, recently underwent thrombolysis with stent placement on March [address] Garzon, presents to the emergency department today for worsening shortness of breath and chest pain. Patient was discharged 6 days ago. She states that evening she began developing shortness of breath. She reports over the last 6 days with any activity she has had chest pain and shortness of breath to where she had to sit down. Her pain would resolve upon rest. She went and saw Dr. Huizar today for follow-up who advised she come to the emergency department. She is currently on Pradaxa states that she is compliant with her medication regimen. PFSH Past Medical History Hx Anticoagulant Therapy: Yes (PRADAXA) Arthritis: Yes Autoimmune Disease: No Anxiety: No Depression: No Cancer: Yes (MELANOMA) Cardiovascular Problems: No High Cholesterol: Yes Chemotherapy: No Cerebrovascular Accident: Yes (POSSIBLE TIA 2003) Diabetes: Yes (DIABETES) Deep Vein Thrombosis: Yes (HX OF DVT- ON COUMADIN) Endocrine: Yes Fibromyalgia: Yes GERD: No Genitourinary: No Hepatitis: No Hiatal Hernia: No Immune Disorder: No Musculoskeletal: No Neurologic: Yes (POSSIBLE TIA IN PAST) Psychiatric: No Reproductive: Yes (2 ECTOPIC PREGNANCIES, 1 RUPTURED) Respiratory: No Immunizations Current: Yes Migraines: No Radiation Therapy: No Seizures: No Thyroid Disease: No Ulcer: No Menopausal: Yes Past Surgical History Abdominal Surgery: Yes (APPENDECTOMY OPEN) AICD: No Appendectomy: Yes Cardiac Surgery: No Ear Surgery: No Endocrine Surgery: No Eye Surgery: No Genitourinary Surgery: No Gynecologic Surgery: Yes (HYSTERECTOMY) Hysterectomy: Yes Joint Replacement: No Oral Surgery: No Pacemaker: No Thoracic Surgery: No Social History Alcohol Use: No Tobacco Use: Yes (1/2 ppd) Substance Use: No Allergies-Medications (Allergen,Severity, Reaction): Coded Allergies: Bactrim (Verified Allergy, Severe, Hives, 03/09/17) Cipro (Verified Allergy, Severe, HIVES, 03/09/17) Reported Meds & Prescriptions Reported Meds & Active Scripts Active Novolog Inj (Insulin Aspart) 100 Unit/Ml Inj 1 Unit SQ Q4HR 30 Days Levemir Inj (Insulin Detemir) 1,000 unit/ 10 ML Vial 7 Units SQ Q12HR 30 Days Pradaxa (Dabigatran) 150 Mg Cap 150 Mg PO Q12H Reported Lortab (Hydrocodone-Acetaminophen) 10-325 Mg Tab 1 Tab PO Q6H PRN Divalproex DR (Divalproex Sodium) 250 Mg Tabdr 250 Mg PO BID Gabapentin 300 Mg Cap 300 Mg PO BID Tizanidine (Tizanidine HCl) 4 Mg Cap 4 Mg PO TID Metformin (Metformin HCl) 500 Mg Tab 500 Mg PO DAILY With a meal Glipizide 5 Mg Tab 5 Mg PO DAILY Take 30 minutes before a meal Invokana (Canagliflozin) 300 Mg Tab 300 Mg PO DAILY Take before 1st meal of day. Review of Systems Except as stated in HPI: all other systems reviewed are Neg Physical Exam Narrative GENERAL: Well-nourished female patient, in no acute distress SKIN: Focused skin assessment warm/dry. HEAD: Atraumatic. Normocephalic. EYES: Pupils equal and round. No scleral icterus. No injection or drainage. ENT: No nasal bleeding or discharge. Mucous membranes pink and moist. NECK: Trachea midline. No JVD. CARDIOVASCULAR: Tachycardic rate and rhythm. 2/6 systolic murmur RESPIRATORY: No accessory muscle use. Diminished, poor inspiratory effort, pain with deep inspiration.. Breath sounds equal bilaterally. GASTROINTESTINAL: Abdomen soft, non-tender, nondistended. Hepatic and splenic margins not palpable. MUSCULOSKELETAL: No obvious deformities. No clubbing. No cyanosis. Moderate, nonpitting edema left lower extremity however the patient does report significant pain with palpation of the distal left lower extremity. NEUROLOGICAL: Awake and alert. No obvious cranial nerve deficits. Motor grossly within normal limits. Normal speech. PSYCHIATRIC: Appropriate mood and affect; insight and judgment normal. Data Data Last Documented VS Vital Signs Date Time Temp Pulse Resp B/P Pulse Ox O2 Delivery O2 Flow Rate FiO2 03/22/17 14:46 88 19 133/70 100 Room Air 03/22/17 11:33 99.1 Orders Complete Blood Count With Diff (03/22/17 11:57) Basic Metabolic Panel (Bmp) (03/22/17 11:57) Act Partial Throm Time (Ptt) (03/22/17 11:57) Prothrombin Time / Inr (Pt) (03/22/17 11:57) Ckmb (Isoenzyme) Profile (03/22/17 11:57) Troponin I (03/22/17 11:57) Urinalysis - C+S If Indicated (03/22/17 11:57) Iv Access Insert/Monitor (03/22/17 11:57) Electrocardiogram (03/22/17 11:57) Ecg Monitoring (03/22/17 11:57) Oximetry (03/22/17 11:57) Oxygen Administration (03/22/17 11:57) Chest, Single Ap (03/22/17 11:57) Ct Pulmonary Angiogram (03/22/17 11:57) Sodium Chloride 0.9% Flush (Ns Flush) (03/22/17 12:00) Iohexol 350 Inj (Omnipaque 350 Inj) (03/22/17 14:20) Diet 1800 Ada Cons Carb (03/22/17 Dinner) Diet Heart Healthy (03/22/17 Dinner) Vital Signs (Adult) LISA.Q4H (03/22/17 14:46) Blood Glucose Goal (Criteria) (03/22/17 14:46) Hypoglycemia 70 Mg/Dl Or < (03/22/17 14:46) Notify Dr: Other (03/22/17 14:46) Dextrose 50% In Mary (Vial) Inj (D50w (Vi (03/22/17 15:00) Glucagon Inj (Glucagon Inj) (03/22/17 15:00) Insulin Human Reg Supp Scale (Novolin R (03/22/17 16:00) Ondansetron Inj (Zofran Inj) (03/22/17 15:00) Acetaminophen (Tylenol) (03/22/17 15:00) Admit Order (Ed Use Only) (03/22/17 14:48) Labs Laboratory Tests Test 03/22/17 03/22/17 03/22/17 12:20 13:30 13:35 White Blood Count 10.2 TH/MM3 Red Blood Count 5.01 MIL/MM3 Hemoglobin 14.9 GM/DL Hematocrit 43.7 % Mean Corpuscular Volume 87.2 FL Mean Corpuscular Hemoglobin 29.8 PG Mean Corpuscular Hemoglobin 34.2 % Concent Red Cell Distribution Width 12.8 % Platelet Count 329 TH/MM3 Mean Platelet Volume 10.0 FL Neutrophils (%) (Auto) 55.4 % Lymphocytes (%) (Auto) 32.3 % Monocytes (%) (Auto) 10.6 % Eosinophils (%) (Auto) 0.6 % Basophils (%) (Auto) 1.1 % Neutrophils # (Auto) 5.6 TH/MM3 Lymphocytes # (Auto) 3.3 TH/MM3 Monocytes # (Auto) 1.1 TH/MM3 Eosinophils # (Auto) 0.1 TH/MM3 Basophils # (Auto) 0.1 TH/MM3 CBC Comment AUTO DIFF Differential Comment AUTO DIFF CONFIRMED Platelet Estimate NORMAL Platelet Morphology Comment NORMAL Urine Color YELLOW Urine Turbidity CLEAR Urine pH 5.0 Urine Specific [place] 1.039 Urine Protein TRACE mg/dL Urine Glucose (UA) 1000 mg/dL Urine Ketones 40 mg/dL Urine Occult Blood NEG Urine Nitrite NEG Urine Bilirubin NEG Urine Urobilinogen LESS THAN 2.0 MG/DL Urine Leukocyte Esterase TRACE Urine RBC 2 /hpf Urine WBC 3 /hpf Urine Squamous Epithelial 3 /hpf Cells Urine Bacteria OCC /hpf Urine Hyaline Casts 3 /lpf Urine Yeast (Budding) OCC Microscopic Urinalysis Comment CULT NOT INDICATED Prothrombin Time 11.4 SEC Prothromb Time International 1.0 RATIO Ratio Activated Partial 29.8 SEC Thromboplast Time Sodium Level 139 MEQ/L Potassium Level 3.9 MEQ/L Chloride Level 105 MEQ/L Carbon Dioxide Level 24.5 MEQ/L Anion Gap 10 MEQ/L Blood Urea Nitrogen 20 MG/DL Creatinine 0.74 MG/DL Estimat Glomerular Filtration 79 ML/MIN Rate Random Glucose 122 MG/DL Calcium Level 9.6 MG/DL Total Creatine Kinase 22 U/L Troponin I LESS THAN 0.02 NG/ML [facility] Medical Decision Making Medical Screen Exam Complete: Yes Emergency Medical Condition: Yes Medical Record Reviewed: Yes Differential Diagnosis PE versus pleuritic pain versus pneumonia versus costochondritis versus ACS Narrative Course 61-year-old female presents to the emergency department for evaluation of worsening shortness of breath with chest pain. Her vital signs are stable. She appears well. Lab work is ordered and we'll move forward with CT pulmonary angiogram for there is great concern of PE. Laboratory Tests Test 03/22/17 03/22/17 03/22/17 12:20 13:30 13:35 White Blood Count 10.2 TH/MM3 Red Blood Count 5.01 MIL/MM3 Hemoglobin 14.9 GM/DL Hematocrit 43.7 % Mean Corpuscular Volume 87.2 FL Mean Corpuscular Hemoglobin 29.8 PG Mean Corpuscular Hemoglobin 34.2 % Concent Red Cell Distribution Width 12.8 % Platelet Count 329 TH/MM3 Mean Platelet Volume 10.0 FL Neutrophils (%) (Auto) 55.4 % Lymphocytes (%) (Auto) 32.3 % Monocytes (%) (Auto) 10.6 % Eosinophils (%) (Auto) 0.6 % Basophils (%) (Auto) 1.1 % Neutrophils # (Auto) 5.6 TH/MM3 Lymphocytes # (Auto) 3.3 TH/MM3 Monocytes # (Auto) 1.1 TH/MM3 Eosinophils # (Auto) 0.1 TH/MM3 Basophils # (Auto) 0.1 TH/MM3 CBC Comment AUTO DIFF Differential Comment AUTO DIFF CONFIRMED Platelet Estimate NORMAL Platelet Morphology Comment NORMAL Urine Color YELLOW Urine Turbidity CLEAR Urine pH 5.0 Urine Specific [place] 1.039 Urine Protein TRACE mg/dL Urine Glucose (UA) 1000 mg/dL Urine Ketones 40 mg/dL Urine Occult Blood NEG Urine Nitrite NEG Urine Bilirubin NEG Urine Urobilinogen LESS THAN 2.0 MG/DL Urine Leukocyte Esterase TRACE Urine RBC 2 /hpf Urine WBC 3 /hpf Urine Squamous Epithelial 3 /hpf Cells Urine Bacteria OCC /hpf Urine Hyaline Casts 3 /lpf Urine Yeast (Budding) OCC Microscopic Urinalysis Comment CULT NOT INDICATED Prothrombin Time 11.4 SEC Prothromb Time International 1.0 RATIO Ratio Activated Partial 29.8 SEC Thromboplast Time Sodium Level 139 MEQ/L Potassium Level 3.9 MEQ/L Chloride Level 105 MEQ/L Carbon Dioxide Level 24.5 MEQ/L Anion Gap 10 MEQ/L Blood Urea Nitrogen 20 MG/DL Creatinine 0.74 MG/DL Estimat Glomerular Filtration 79 ML/MIN Rate Random Glucose 122 MG/DL Calcium Level 9.6 MG/DL Total Creatine Kinase 22 U/L Troponin I LESS THAN 0.02 NG/ML Last Impressions Chest X-Ray 03/22/17 1157 Signed Impressions: Service Date/Time: Wednesday, March 22, 2017 12:22 - CONCLUSION: No acute infiltrate or effusion. Uriel Hagen Jr., MD CTPA is complete and shows a 2.2 cm embolus in the right main pulmonary artery with multiple emboli in the right lower lobe. I updated Dr. Huizar on this as he sent the patient here for evaluation. He has already made I are aware of the patient being here. I discussed the patient with Dr. Evans because she is on Pradaxa for further recommendation of thrombolytic therapy. She recommends heparin drip without bolus as the patient already took her Pradaxa today. Pt has been admitted to Dr. Almendarez, Dr. Mohan,interventional radiologist is at bedside. He requests left lower extremity ultrasound. Diagnosis Primary Impression: Pulmonary embolism Qualified Code: I26.99 - Other acute pulmonary embolism without acute cor pulmonale Additional Impression: DVT (deep venous thrombosis) Qualified Code: I82.402 - Deep vein thrombosis (DVT) of left lower extremity, unspecified chronicity, unspecified vein Admitting Information Admitting Physician Requests: Admit Condition: Stable Mackenzie Barron Mar 22, 2017 11:56
[2017-03-22 12:57] LABS: AUTOMATED NEUTROPHIL # 5.6 TH/MM3 (1.8-7.7); BASOPHIL # 0.1 TH/MM3 (0-0.2); BASOPHIL % 1.1 % (0.0-2.0); EOSINOPHIL # 0.1 TH/MM3 (0-0.4); EOSINOPHIL % 0.6 % (0.0-4.0); HEMATOCRIT 43.7 % (35.0-46.0); LYMPH % 32.3 % (9.0-44.0); LYMPHOCYTE # 3.3 TH/MM3 (1.0-4.8); MEAN CELL VOLUME 87.2 FL (80.0-100.0); MEAN CORPUSCULAR HEMOGLOBIN 29.8 PG (27.0-34.0); MEAN CORPUSCULAR HGB CONC 34.2 % (32.0-36.0); MONO % 10.6 % (0.0-8.0); NEUT % 55.4 % (16.0-70.0); PLATELET COUNT 329 TH/MM3 (150-450); RED BLOOD COUNT 5.01 MIL/MM3 (4.00-5.30); RED CELL DISTRIBUTION WIDTH 12.8 % (11.6-17.2); WHITE BLOOD COUNT 10.2 TH/MM3 (4.0-11.0)
[2017-03-22 13:06] LABS: HEMO FLAGS AUTO DIFF
[2017-03-22 13:45] LABS: PLATELET ESTIMATE SMEAR NORMAL (NORMAL); PLATELET MORPHOLOGY NORMAL (NORMAL); SCAN/DIFF AUTO DIFF CONFIRMED
--- NOTE | 2017-03-22 13:45 | RADRPT ---
EXAM DATE/TIME: 03/22/2017 12:22 [facility] COMPARISON: CHEST SINGLE AP, March 19, 2010, 4:45. INDICATIONS : Shortness of breath. MEDICAL HISTORY : None. SURGICAL HISTORY : None. ENCOUNTER: Initial ACUITY: 1 day PAIN SCORE: 0/10 LOCATION: Bilateral chest FINDINGS: A single portable frontal view of the chest shows chronic elevation of the right hemidiaphragm. Chron ic blunting of the right costophrenic angle. Mild chronic interstitial changes within the bases. No i nfiltrate or effusion. Heart is normal in size. Scoliotic and degenerative thoracic spine. Anterior s kendal fusion plate involving the base of the cervical spine. CONCLUSION: No acute infiltrate or effusion. Uriel Hgaen Jr., MD on March 22, 2017 at 13:43 Board Certified Radiologist. This report was verified electronically.
[2017-03-22 13:54] LABS: BACTERIA, URINE OCC /hpf; BLOOD, URINE NEG (NEG); COMMENT (UR) CULT NOT INDICATED; CULTURE IF INDICATED CULT NOT INDICATED; GLUCOSE,URINE 1000 mg/dL (NEG); HYALINE CAST, URINE 3 /lpf (RARE); KETONE, URINE 40 mg/dL (NEG); NITRITE,URINE NEG (NEG); SQUAMOUS EPITHELIAL CELL URINE 3 /hpf (0-5); URINE COLOR YELLOW (YELLW/STRAW)
[2017-03-22 14:06] LABS: APTT (PATIENT) 29.8 SEC (24.3-30.1); PROTHROMBIN TIME - PATIENT 11.4 SEC (9.8-11.6)
[2017-03-22 14:16] LABS: ANION GAP 10 MEQ/L (5-15); BICARBONATE 24.5 MEQ/L (21.0-32.0); BLOOD UREA NITROGEN 20 MG/DL (7-18); CHLORIDE 105 MEQ/L (98-107); GLOMERULAR FILTRATION RATE 79 ML/MIN (>89); SODIUM (NA) 139 MEQ/L (136-145)
[2017-03-22] MEDS ORDERED: IOHEXOL 350 MG/ML 10 ML VIAL (for RAD DIAG) IV ONE (14:20)
[2017-03-22] MEDS: SODIUM CHLORIDE 0.9% FLUSH 10 ML FLUSH IVF PRN ×2 (14:22→22:16)
[2017-03-22 14:26] LABS: CREATINE KINASE 22 U/L (26-192); POTASSIUM 3.9 MEQ/L (3.5-5.1)
--- NOTE | 2017-03-22 14:29 | RADRPT ---
EXAM DATE/TIME: 03/22/2017 13:54 [facility] COMPARISON: No previous studies available for comparison. INDICATIONS : History of DVT now having shortness of breath IV CONTRAST: 50 cc Omnipaque 350 (iohexol) IV RADIATION DOSE: 23.05 CTDIvol (mGy) MEDICAL HISTORY : Deep venous thrombosis. Diabetes,melanoma SURGICAL HISTORY : Hysterectomy. ENCOUNTER: Initial ACUITY: 1 day PAIN SCALE: 0/10 LOCATION: chest TECHNIQUE: Volumetric scanning of the chest was performed using a pulmonary embolism protocol MIP images were re constructed. Using automated exposure control and adjustment of the mA and/or kV according to patien t size, radiation dose was kept as low as reasonably achievable to obtain optimal diagnostic quality images. DICOM format image data is available electronically for review and comparison. Follow-up recommendations for incidentally detected pulmonary nodules are based at a minimum on nodul e size and patient risk factors according to Fleischner Society Guidelines. FINDINGS: There is an approximate 2.2 cm pulmonary embolus within the right main pulmonary artery with sma ller emboli extending into the right lower lobe. There is slight atelectasis and/or infiltrate in the right lower lobe with probable area of scarring adjacent to major fissure on the right. The gallblad johnathan demonstrates multiple stones without gallbladder wall thickening, or pericholecystic fluid. CONCLUSION: Pulmonary embolus involving right pulmonary artery and lower lobe branches. Ortiz Carter MD on March 22, 2017 at 14:24 Board Certified Radiologist. This report was verified electronically.
[2017-03-22] MEDS ORDERED: ACETAMINOPHEN 325 MG TAB PO PRN (15:00)
[2017-03-22] MEDS ORDERED: GLUCAGON 1 MG/ML VIAL OTHER PRN (15:00)
[2017-03-22] MEDS ORDERED: DEXTROSE 50% IN WATER 50 ML VIAL(D50) IV PRN (15:00)
[2017-03-22] MEDS ORDERED: ONDANSETRON HCL 4 MG/2 ML VIAL IV PUSH PRN (15:00)
--- NOTE | 2017-03-22 15:15 | HHI.HP ---
[facility] Primary Care Physician Domingo Macias MD Admission Diagnosis R Pulmonary artery PE; mult PE RLL; chest pain; dyspnea; LLE DVT Diagnoses: (1) Pulmonary embolism Diagnosis: Principal Chief Complaint: shortness of breath Travel History International Travel<30 Days: No Contact w/Intl Traveler <30 Da: No Traveled to Known Affected Are: No History of Present Illness patient is a 61 y/o female with history of DVT- who was recently treated for DVT of the left lower extremity- with TPA- presented to ER with shortness of breath. she says that she started to have exertional dyspnea after a few days ago. sob was associated with pleuritic chest pain.she denies any cough but had a low grade fever a couple of days ago. she was seen by earlier today when she was advised to come to the hospital. she was found to have PE. she says that she was on Xarelto for her DVT for a long time- this was switched to Pradaxa last admission. Review of Systems Constitutional: COMPLAINS OF: Fever, DENIES: Weight loss, Chills, Night Sweats Eyes: DENIES: Blurred vision, Diplopia, Vision loss, Double Vision Ears, nose, mouth, throat: DENIES: Tinnitus, Vertigo, Throat pain, Epistaxis Respiratory: DENIES: Apneas, Cough, Snoring, Wheezing, Hemoptysis, Sputum production, Shortness of breath Cardiovascular: COMPLAINS OF: Chest pain, Dyspnea on Exertion, DENIES: Palpitations, Syncope, PND, Lower Extremity Edema, Orthopnea, Claudication Gastrointestinal: DENIES: Abdominal pain, Black stools, Bloody stools, Constipation, Diarrhea, Nausea, Vomiting, Difficulty Swallowing, Anorexia Genitourinary: DENIES: Urinary frequency, Urgency, Hematuria, Dysuria Musculoskeletal: DENIES: Joint pain, Muscle aches, Stiffness, Joint Swelling Integumentary: DENIES: Rash Neurologic: DENIES: Abnormal gait, Headache, Localized weakness, Paresthesias, Seizures, Speech Problems, Tremor, Poor Balance Psychiatric: DENIES: Anxiety, Confusion, Mood changes, Depression, Hallucinations, Agitation, Suicidal Ideation, Homicidal Ideation, Delusions Past Family Social History Past Medical History DVT diabetes mellitus melanoma Past Surgical History IVC filter placement melanoma removal hysterectomy Reported Medications Novolog Inj (Insulin Aspart) 100 Unit/Ml Inj 1 Unit SQ Q4HR 30 Days Levemir Inj (Insulin Detemir) 1,000 unit/ 10 ML Vial 7 Units SQ Q12HR 30 Days Pradaxa (Dabigatran) 150 Mg Cap 150 Mg PO Q12H Reported Lortab (Hydrocodone-Acetaminophen) 10-325 Mg Tab 1 Tab PO Q6H PRN Divalproex DR (Divalproex Sodium) 250 Mg Tabdr 250 Mg PO BID Gabapentin 300 Mg Cap 300 Mg PO BID Tizanidine (Tizanidine HCl) 4 Mg Cap 4 Mg PO TID Metformin (Metformin HCl) 500 Mg Tab 500 Mg PO DAILY With a meal Glipizide 5 Mg Tab 5 Mg PO DAILY Take 30 minutes before a meal Invokana (Canagliflozin) 300 Mg Tab 300 Mg PO DAILY Take before 1st meal of day. Allergies: Coded Allergies: Bactrim (Verified Allergy, Severe, Hives, 03/09/17) Cipro (Verified Allergy, Severe, HIVES, 03/09/17) Active Ordered Medications Current Medications Sodium Chloride (NS Flush) 2 ml UNSCH PRN IVF FLUSH AFTER USING IV ACCESS Last administered on 03/22/17t 14:22; Start 03/22/17 at 12:00 Iohexol (Omnipaque 350 Inj) 50 ml STK-MED ONCE IV ; Start 03/22/17 at 14:20; Stop 03/22/17 at 14:21; Status DC Dextrose (D50w (Vial) Inj) 50 ml UNSCH PRN IV HYPOGLYCEMIA-SEE COMMENTS; Start 03/22/17 at 15:00; Status UNV Glucagon (Glucagon Inj) 1 mg UNSCH PRN OTHER HYPOGLYCEMIA-SEE COMMENTS; Start 03/22/17 at 15:00; Status UNV Insulin Human Regular (NovoLIN R SUPPLEMENTAL SCALE) 1 ACHS SLIDING SCALE SQ ; Start 03/22/17 at 16:00; Status UNV Ondansetron HCl (Zofran Inj) 4 mg Q8HR PRN IV PUSH NAUSEA; Start 03/22/17 at 15 :00; Status UNV Acetaminophen (Tylenol) 650 mg Q4H PRN PO FEVER; Start 03/22/17 at 15:00; Status UNV Family History blood clot in sisters. Social History smokes half a pack a day. doesn't drink. Physical Exam Vital Signs Vital Signs Date Time Temp Pulse Resp B/P Pulse Ox O2 Delivery O2 Flow Rate FiO2 03/22/17 14:46 88 19 133/70 100 Room Air 03/22/17 12:32 97 03/22/17 12:31 97 Room Air 03/22/17 12:31 13 Room Air 03/22/17 11:33 99.1 103 20 152/89 97 Room Air Physical Exam GENERAL: This is a well-nourished, well-developed patient, in no apparent distress. SKIN: No rashes, ecchymoses or lesions. Cool and dry. HEAD: Atraumatic. Normocephalic. No temporal or scalp tenderness. EYES: Pupils equal round and reactive. Extraocular motions intact. No scleral icterus. No injection or drainage. ENT: Nose without bleeding, purulent drainage or septal hematoma. Throat without erythema, tonsillar hypertrophy or exudate. Uvula midline. Airway patent. NECK: Trachea midline. No JVD or lymphadenopathy. Supple, nontender, no meningeal signs. CARDIOVASCULAR: Regular rate and rhythm without murmurs, gallops, or rubs. RESPIRATORY: Clear to auscultation. Breath sounds equal bilaterally. No wheezes , rales, or rhonchi. GASTROINTESTINAL: Abdomen soft, non-tender, nondistended. No hepato-splenomegaly , or palpable masses. No guarding. MUSCULOSKELETAL: Extremities without clubbing, cyanosis, or edema. No joint tenderness, effusion, or edema noted. No calf tenderness. Negative Homans sign bilaterally. NEUROLOGICAL: Awake and alert. Cranial nerves II through XII intact. Motor and sensory grossly within normal limits. Five out of 5 muscle strength in all muscle groups. Normal speech. Laboratory Laboratory Tests Test 03/22/17 03/22/17 03/22/17 12:20 13:30 13:35 White Blood Count 10.2 Red Blood Count 5.01 Hemoglobin 14.9 Hematocrit 43.7 Mean Corpuscular Volume 87.2 Mean Corpuscular Hemoglobin 29.8 Mean Corpuscular Hemoglobin 34.2 Concent Red Cell Distribution Width 12.8 Platelet Count 329 Mean Platelet Volume 10.0 Neutrophils (%) (Auto) 55.4 Lymphocytes (%) (Auto) 32.3 Monocytes (%) (Auto) 10.6 Eosinophils (%) (Auto) 0.6 Basophils (%) (Auto) 1.1 Neutrophils # (Auto) 5.6 Lymphocytes # (Auto) 3.3 Monocytes # (Auto) 1.1 Eosinophils # (Auto) 0.1 Basophils # (Auto) 0.1 CBC Comment AUTO DIFF Differential Comment AUTO DIFF CONFIRMED Platelet Estimate NORMAL Platelet Morphology Comment NORMAL Urine Color YELLOW Urine Turbidity CLEAR Urine pH 5.0 Urine Specific [place] 1.039 Urine Protein TRACE Urine Glucose (UA) 1000 Urine Ketones 40 Urine Occult Blood NEG Urine Nitrite NEG Urine Bilirubin NEG Urine Urobilinogen LESS THAN 2.0 Urine Leukocyte Esterase TRACE Urine RBC 2 Urine WBC 3 Urine Squamous Epithelial 3 Cells Urine Bacteria OCC Urine Hyaline Casts 3 Urine Yeast (Budding) OCC Microscopic Urinalysis Comment CULT NOT INDICATED Prothrombin Time 11.4 Prothromb Time International 1.0 Ratio Activated Partial 29.8 Thromboplast Time Sodium Level 139 Potassium Level 3.9 Chloride Level 105 Carbon Dioxide Level 24.5 Anion Gap 10 Blood Urea Nitrogen 20 Creatinine 0.74 Estimat Glomerular Filtration 79 Rate Random Glucose 122 Calcium Level 9.6 Total Creatine Kinase 22 Troponin I LESS THAN 0.02 Result Diagram: 03/22/17 1220 03/22/17 1335 Imaging Last Impressions Chest X-Ray 03/22/17 1157 Signed Impressions: Service Date/Time: Wednesday, March 22, 2017 12:22 - CONCLUSION: No acute infiltrate or effusion. Uriel Hagen Jr., MD EKG; sinus rhythm with incomplete RBBB Assessment and Plan Assessment and Plan A/P - PE with history of recurrent DVT's - patient was recently treated for recent DVT of the left lower extremity with TPA patient is on Pradaxa at home- started on heparin drip - will consult hematology IR has been notified. -diabetes mellitus; accu-check with SSI -history of fibromyalgia- resume home meds. Discussed Condition With ER and the patient. Physician Certification 2 Midnight Certification Type: Admission for Inpatient Services Order for Inpatient Services The services are ordered in accordance with Medicare regulations or non- Medicare payer requirements, as applicable. In the case of services not specified as inpatient-only, they are appropriately provided as inpatient services in accordance with the 2-midnight benchmark. Estimated LOS (days): 2 days is the estimated time the patient will need to remain in the hospital, assuming treatment plan goals are met and no additional complications. Post-Hospital Plan: Home Problem Qualifiers (1) Pulmonary embolism: Tenisha Moreno MD Mar 22, 2017 15:15
[2017-03-22] MEDS: HEPARIN-D5W INJ 250 ML IV SCH (15:40)
[2017-03-22] MEDS: INSULIN NovoLIN REGULAR SUPPLEMENTAL SCALE SQ SCH (16:00)
--- NOTE | 2017-03-22 16:21 | RADRPT ---
EXAM DATE/TIME: 03/22/2017 15:23 [facility] COMPARISON: US LEG LEFT VENOUS DOPPLER, March 12, 2017, 16:22. INDICATIONS : Left leg thrombus follow up. MEDICAL HISTORY : Hypercholesterolemia. Arthritis. History of left lower leg DVT. Leg edema. Peripheral neuropath y. Cerebrovascular accident. Fibromyalgia. Diabetes. Carcinoma, melanoma. SURGICAL HISTORY : Appendectomy. Hysterectomy. History of cervical fusion. Melanoma excision. ENCOUNTER: Subsequent ACUITY: 2 weeks PAIN SCORE: 6/10 LOCATION: Left leg. TECHNIQUE: Venous ultrasound of the leg was performed from the inguinal ligament to the proximal calf. Real-jose e, color Doppler and spectral tracing, compression and augmentation techniques were used. FINDINGS: There is been no significant change when compared to the prior study. Scattered areas of nonocclusive thrombus are seen throughout the left lower extremity extending from the groin to the calf. There is sparing of the superficial femoral vein however. There is occlusive thrombus involving the greater s aphenous vein at its junction with the common femoral vein. CONCLUSION: Unchanged nonocclusive thrombus throughout the deep venous structures as well as occlusive thrombus i nvolving the greater saphenous vein. Uriel Hagen Jr., MD on March 22, 2017 at 16:16 Board Certified Radiologist. This report was verified electronically.
--- NOTE | 2017-03-22 17:20 | EKG ---
Date Performed: 03/22/2017 Time Performed: 13:00:56 PTAGE: 61 years EKG: Sinus rhythm INCOMPLETE RIGHT BUNDLE BRANCH BLOCK POSSIBLE RIGHT VENTRICULAR HYPERTROPHY NONSPECIFIC T-WAVE ABNOR MALITY ABNORMAL ECG Compared to prior tracing no significant change DOCTOR: Benjamin Briscoe Interpretating Date/Time 03/22/2017 17:19:46
[2017-03-22] MEDS: ACETAMINOPHEN/HYDROcodone 325 MG/5 MG TAB PO PRN (18:54)
[2017-03-22] MEDS: GABAPENTIN 300 MG CAP PO SCH (22:16)
[2017-03-22 23:39] LABS: APTT (PATIENT) 29.6 SEC (24.3-30.1)
[2017-03-23] VITALS (27 sets, daily range): BP systolic 94–112; BP diastolic 57–64; PULSE 64–78; RESP 18–20; TEMP 97.8–98.5; O2SAT 96–98
[2017-03-23] MEDS: ACETAMINOPHEN/HYDROcodone 325 MG/5 MG TAB PO PRN ×6 (00:13→21:54)
[2017-03-23] MEDS: DIVALPROEX SODIUM DELAYED RELEASE 250 MG TAB PO SCH ×3 (00:13→19:48)
[2017-03-23 07:21] LABS: APTT (PATIENT) 26.3 SEC (24.3-30.1)
--- NOTE | 2017-03-23 08:26 | HHI.PR ---
Subjective Remarks f/u; PE in no acute distress. pain is fairly controlled. has some pain to the left leg. Objective Vitals Vital Signs Date Time Temp Pulse Resp B/P Pulse Ox O2 Delivery O2 Flow Rate FiO2 03/23/17 08:00 73 03/23/17 07:00 71 03/23/17 05:00 68 03/23/17 04:00 97.8 64 18 102/57 97 03/23/17 04:00 72 03/23/17 03:00 70 03/23/17 02:00 70 03/23/17 01:00 78 03/23/17 00:00 78 03/23/17 00:00 98.5 71 18 108/57 98 03/22/17 22:00 102 03/22/17 21:00 78 03/22/17 20:00 88 03/22/17 20:00 99.0 84 18 109/65 95 03/22/17 15:18 86 133/76 99 Room Air 03/22/17 14:46 88 19 133/70 100 Room Air 03/22/17 12:32 97 03/22/17 12:31 97 Room Air 03/22/17 12:31 13/ 97 Room Air 03/22/17 11:33 99.1 103 20 152/89 97 Room Air I/O 03/22/17 03/22/17 03/22/17 03/23/17 03/23/17 03/23/17 07:00 15:00 23:00 07:00 15:00 23:00 Intake Total 685 ml Output Total 2 ml Balance 683 ml Intake Oral 480 ml IV Total 205 ml Output Urine Total 2 ml Result Diagram: 03/22/17 1220 03/22/17 1335 Imaging Last Impressions Chest X-Ray 03/22/177 Signed Impressions: Service Date/Time: Wednesday, March 22, 2017 12:22 - CONCLUSION: No acute infiltrate or effusion. Uriel Hagen Jr., MD CT Angiography 03/22/17 1157 Signed Impressions: Service Date/Time: Wednesday, March 22, 2017 13:54 - CONCLUSION: Pulmonary embolus involving right pulmonary artery and lower lobe branches. K. Maximiliano Carter MD Lower Extremity Ultrasound 03/22/17 0000 Signed Impressions: Service Date/Time: Wednesday, March 22, 2017 15:23 - CONCLUSION: Unchanged nonocclusive thrombus throughout the deep venous structures as well as occlusive thrombus involving the greater saphenous vein. Uriel Hagen Jr., MD A/P Assessment and Plan A/P - PE with history of recurrent DVT's - patient was recently treated for recent DVT of the left lower extremity with TPA venous doppler of lower extremities with Unchanged nonocclusive thrombus throughout the deep venous structures as well as occlusive thrombus involving the greater saphenous vein patient was on Pradaxa at home- started on heparin drip - hematology consulted. keep on oxygen as needed to keep O2 sat >90%. -diabetes mellitus; accu-check with SSI -history of fibromyalgia- resumed home meds. Tenisha Moreno MD Mar 23, 2017 08:26
[2017-03-23] MEDS: GABAPENTIN 300 MG CAP PO SCH ×2 (08:54→19:48)
--- NOTE | 2017-03-23 10:42 | MB ---
cc: SCOOTER PEGUERO M.D. DATE OF CONSULTATION March 23, [address] Moreno REASON FOR CONSULTATION Hematology consulted to render opinion regarding patient with recurrent clots. HISTORY OF PRESENT ILLNESS The patient is a very pleasant 61-year-old female who was just discharged from hospital last week after treatment of a recurrent left lower extremity deep venous thrombosis. She was admitted a few weeks ago for thrombolytic therapy of the left lower extremity thrombus. She had an IVC filter placed for the procedure and subsequently removed at the procedure. She was on Xarelto prior to her last admission because of her recurrent clot. She was switched over to Pradaxa. She was on Coumadin for several years prior to Xarelto but her level was difficult to titrate. When went home she developed nausea and vomiting. The next day she said she was very sick, she was not able to keep any medication down and did not take the Pradaxa. She was laying in bed all day. Two days later she started having shortness of breath and exertion. She went to see Dr. Huizar yesterday and was directed to the emergency room. CT angiogram showed pulmonary embolism in the right lung and she was admitted. She has had tenderness in the left lower extremities since her last blood clot after the thrombolytic therapy. Her tenderness is slightly better. She denies increased edema. She denies fever or chills. She had pleuritic pain in the right chest. Denies any nausea, vomiting, abdominal pain, dysuria or hematuria. PAST MEDICAL HISTORY 1. Recurrent left lower extremity venous thrombosis. 2. Diabetes mellitus. 3. Fibromyalgia. 4. Degenerative disk disease. 5. Melanoma removed from the right shoulder a few years ago. PAST SURGICAL HISTORY 1. Resection of right shoulder melanoma about four years ago. 2. Complete hysterectomy. 3. Appendectomy. 4. Tonsillectomy. 5. Thrombolytic therapy. 6. IVC filter placement and removal. FAMILY HISTORY Multiple uncles and aunts as well as cousins on the maternal side had deep venous thrombosis. Mother also had deep venous thrombosis. Her daughter has deep venous thrombosis by hypercoagulable testing reportedly was negative. She has two sisters. SOCIAL HISTORY Smoked half-a-pack a day for 30 years. Denies alcohol use. She lives with her . ALLERGIES BACTRIM. CIPRO. CURRENT MEDICATIONS 1. Depakote. 2. Pradaxa. 3. Gabapentin. 4. Heparin. REVIEW OF SYSTEMS CONSTITUTIONAL: negative. EYES: Negative. ENT: Negative. CARDIOVASCULAR: As above. RESPIRATORY: As above. GI: As above. : No dysuria or hematuria. MUSCULOSKELETAL: Left lower extremity pain as above. HEMATOLOGY: As above. ENDOCRINE: Negative. DERMATOLOGY: Negative. PSYCHIATRIC: Negative. NEUROLOGIC: Negative. PHYSICAL EXAMINATION VITAL SIGNS: Temperature 97.8, blood pressure 102/57, O2 saturation 97% on room air. GENERAL: She is alert and oriented x 3, in no acute distress. HEENT: Atraumatic, normocephalic. Pupils equal, round and reactive to light. Extraocular muscles are intact. No scleral icterus. Oropharynx - dry mucosa. No lesion or thrush or mucositis. NECK: No thyromegaly. No palpable masses. LYMPHATICS: No palpable cervical, clavicular or axillary lymph nodes. CARDIOVASCULAR: Regular S1-S2. No murmur. LUNGS: Clear to auscultation without wheezing or rhonchi. ABDOMEN: Soft, nontender. I could not palpate liver or spleen. EXTREMITIES: No cyanosis, no clubbing, no significant edema. On the left lower extremity the left calf is still a little tender but is improved, compared to a week ago. I could not palpate any cord. SKIN: No rash or petechiae. NEUROLOGIC EXAM: Nonfocal. LABORATORY DATA CBC within normal limits. INR 1.0, PTT 29.8, creatinine 0.74. ASSESSMENT 1. Recurrent thrombosis. She had first episode of left lower extremity deep venous thrombosis around 2004. She was on Coumadin for several years but the level was difficult to titrate and she was switched to Xarelto. Recently she saw Dr. Huizar and was sent to the hospital for thrombolytic therapy. During the procedure IVC filter was placed but subsequently removed after the procedure. After the thrombolytic therapy ultrasound showed flow in her left lower extremity venous system. There was a question that she may have failed Xarelto. She did not want to restart Coumadin at that time and was started on Pradaxa. On March 12 she has repeat ultrasound which showed mostly chronic thrombus and there was still flow in the venous system. When she was discharged from hospital her clinical symptoms have improved. Her left lower extremity tenderness and edema have improved. However, she developed what sounds like gastroenteritis the next day with nausea and vomiting. She was not able to keep any of her medications down and was laying in bed all day. She developed shortness of breath two days later. In this situation it is very difficult to tell if she has failed Pradaxa. I suspect that she formed a clot because she did not take the Pradaxa for a day and she was immobile for about a day and a half. However, at this point I recommend continued heparin drip and bridge her back to Coumadin in the future. Once her symptoms resolve we can discuss whether to rechallenge her with Pradaxa if she wants to get off Coumadin. I explained the plan to the patient and she agrees. 2. Diabetes mellitus. 3. History of melanoma involving right shoulder status post resection about four years ago. She has no recurrent disease. 4. Fibromyalgia. 5. Degenerative disk disease of chronic pain. PLAN 1. Extensive discussion with the patient as above. 2. Continue heparin and start the bridging to Coumadin. Thank you Dr. Moreno for asking me to see this patient. I will follow the patient with you. MD GEMA Snigh/CHAGO /8:03 AM /10:28 AM YANET
[2017-03-23] MEDS: INSULIN NovoLIN REGULAR SUPPLEMENTAL SCALE SQ SCH ×3 (10:50→19:58)
[2017-03-23 14:07] LABS: APTT (PATIENT) 39.4 SEC (24.3-30.1)
[2017-03-23] MEDS: HEPARIN-D5W INJ 250 ML IV SCH (14:53)
[2017-03-23] MEDS: WARFARIN SOD 5 MG TAB PO SCH (17:21)
[2017-03-23 22:29] LABS: APTT (PATIENT) 42.2 SEC (24.3-30.1)
[2017-03-24] VITALS (28 sets, daily range): BP systolic 92–122; BP diastolic 53–76; PULSE 60–75; RESP 18–22; TEMP 97–98.4; O2SAT 95–97
[2017-03-24] MEDS: ACETAMINOPHEN/HYDROcodone 325 MG/5 MG TAB PO PRN ×6 (02:19→23:43)
[2017-03-24 06:19] LABS: APTT (PATIENT) 69.9 SEC (24.3-30.1)
[2017-03-24] MEDS: INSULIN NovoLIN REGULAR SUPPLEMENTAL SCALE SQ SCH ×4 (06:28→21:00)
[2017-03-24] MEDS: GABAPENTIN 300 MG CAP PO SCH ×2 (09:14→21:31)
[2017-03-24] MEDS: DIVALPROEX SODIUM DELAYED RELEASE 250 MG TAB PO SCH ×2 (09:14→21:31)
--- NOTE | 2017-03-24 09:19 | HHI.PR ---
Subjective Remarks looks and feels more comfortable today. sob and pain to the left leg has improved. no other new complaints. Objective Vitals Vital Signs Date Time Temp Pulse Resp B/P Pulse Ox O2 Delivery O2 Flow Rate FiO2 03/24/17 08:09 63 03/24/17 07:18 75 03/24/17 06:00 68 03/24/17 05:00 60 03/24/17 04:10 64 03/24/17 04:00 64 03/24/17 04:00 97.3 65 22 113/62 97 03/24/17 03:00 62 03/24/17 02:00 64 03/24/17 01:00 66 03/24/17 00:00 62 03/24/17 00:00 97.9 68 20 92/53 97 03/23/17 23:17 64 03/23/17 23:00 64 03/23/17 22:00 66 03/23/17 21:00 66 03/23/17 20:00 98.2 72 18 112/64 96 03/23/17 19:18 74 03/23/17 19:00 72 03/23/17 18:21 18 03/23/17 18:00 74 03/23/17 17:00 72 03/23/17 16:00 75 03/23/17 15:31 98.5 75 20 102/58 96 03/23/17 15:00 74 03/23/17 14:00 75 03/23/17 13:30 20 03/23/17 13:00 72 03/23/17 12:00 70 03/23/17 11:42 98.2 75 20 108/64 96 03/23/17 11:00 66 03/23/17 10:00 70 I/O 03/23/17 03/23/17 03/23/17 03/24/17 03/24/17 03/24/17 07:00 15:00 23:00 07:00 15:00 23:00 Intake Total 685 ml 943 ml 460 ml 15 ml Output Total 2 ml Balance 683 ml 943 ml 460 ml 15 ml Intake Oral 480 ml 775 ml 460 ml IV Total 205 ml 168 ml 15 ml Output Urine Total 2 ml # Voids 4 3 # Bowel Movements 0 0 Result Diagram: 03/22/17 1220 03/22/17 1335 Imaging Last Impressions Chest X-Ray 03/22/17 1157 Signed Impressions: Service Date/Time: Wednesday, March 22, 2017 12:22 - CONCLUSION: No acute infiltrate or effusion. Uriel Hagen Jr., MD CT Angiography 03/22/17 1157 Signed Impressions: Service Date/Time: Wednesday, March 22, 2017 13:54 - CONCLUSION: Pulmonary embolus involving right pulmonary artery and lower lobe branches. Ortiz Carter MD Lower Extremity Ultrasound 03/22/17 0000 Signed Impressions: Service Date/Time: Monday, March 22, 2017 15:23 - CONCLUSION: Unchanged nonocclusive thrombus throughout the deep venous structures as well as occlusive thrombus involving the greater saphenous vein. Uriel Hagen Jr., MD Objective Remarks GENERAL: This is a well-nourished, well-developed patient, in no apparent distress. CARDIOVASCULAR: Regular rate and regular rhythm without murmurs, gallops, or rubs. RESPIRATORY: Clear to auscultation. Breath sounds equal bilaterally. No wheezes , rales, or rhonchi. GASTROINTESTINAL: Abdomen soft, non-tender, nondistended. Normal, active bowel sounds MUSCULOSKELETAL: mild swelling and tenderness of the left leg NEURO: Alert & Oriented x4 to person, place, time, situation. Moves all ext x4 Procedures none Medications and IVs Current Medications Sodium Chloride (NS Flush) 2 ml UNSCH PRN IVF FLUSH AFTER USING IV ACCESS Last administered on 03/22/17 22:16; Start 03/22/17 at 12:00 Iohexol (Omnipaque 350 Inj) 50 ml STK-MED ONCE IV ; Start 03/22/17 at 14:20; Stop 03/22/17 at 14:21; Status DC Dextrose (D50w (Vial) Inj) 50 ml UNSCH PRN IV HYPOGLYCEMIA-SEE COMMENTS; Start 03/22/17 at 15:00 Glucagon (Glucagon Inj) 1 mg UNSCH PRN OTHER HYPOGLYCEMIA-SEE COMMENTS; Start 03/22/17 at 15:00 Insulin Human Regular (NovoLIN R SUPPLEMENTAL SCALE) 1 ACHS SLIDING SCALE SQ Last administered on 03/24/17 06:28; Start 03/22/17 at 16:00 Ondansetron HCl (Zofran Inj) 4 mg Q8H PRN IV PUSH NAUSEA; Start 03/22/17 at 15: 00 Acetaminophen (Tylenol) 650 mg Q4H PRN PO FEVER/PAIN 1-2; Start 03/22/17 at 15: 00 Divalproex Sodium (Depakote Dr) 250 mg BID PO Last administered on 03/24/17 09 :14; Start 03/22/17 at 21:00 Gabapentin 300 mg 300 mg BID PO Last administered on 03/24/17 09:14; Start 08/27 at 21:00 Heparin Sodium/ Dextrose (Heparin-D5W Inj) 250 ml @ 0 mls/hr TITRATE IV Last administered on 03/23/17 14:53; Start 03/22/17 at 15:15 Acetaminophen/ Hydrocodone Bitart ([place] 5-325 Mg) 1 tab Q4H PRN PO PAIN 3-6 Last administered on 03/23/17 12:30; Start 03/22/17 at 16:45 Tizanidine HCl (Zanaflex) 4 mg Q8HR PRN PO MUSCLE SPASM Last administered on 04:24; Start 03/23/17 at 08:30 Acetaminophen/ Hydrocodone Bitart ([place] 5-325 Mg) 2 tab Q4H PRN PO PAIN 7-10 Last administered on 03/24/17 06:19; Start 03/23/17 at 12:15 Warfarin Sodium 5 mg 5 mg DAILY@1600 PO Last administered on 03/23/17 17:21; Start 03/23/17 at 17:00 Pharmacy Profile Note (Coumadin Consult Pharmacy) 0 ml @ 0 mls/hr UNSCH OTHER ; Start 03/23/17 at 16:30 Patient Medication Teaching (Coumadin Booklet) 1 ONCE ONCE OTHER Last administered on 03/23/17 17:22; Start 03/23/17 at 17:00; Stop 03/23/17 at 17:01 ; Status DC A/P Assessment and Plan A/P - PE with history of recurrent DVT's - patient was recently treated for recent DVT of the left lower extremity with TPA venous doppler of lower extremities with Unchanged nonocclusive thrombus throughout the deep venous structures as well as occlusive thrombus involving the greater saphenous vein patient was on Pradaxa at home- started on heparin drip and coumadin per hematology. will dc heparin drip when INR > 2- consulted pharmacy for coumadin dosing. keep on oxygen as needed to keep O2 sat >90% and continue with pain control. -diabetes mellitus; accu-check with SSI- will consider adding levemir- -history of fibromyalgia- resumed home meds. Discharge Planning when INR is therapeutic. Tenisha Moreno MD Mar 24, 2017 09:19
[2017-03-24] MEDS: HEPARIN-D5W INJ 250 ML IV SCH (11:00)
--- NOTE | 2017-03-24 14:07 | PD.ONC.PN ---
Subjective Subjective Remarks Afebrile overnight. Patient resting in room in nad. Tolerating heparin gtt. No complaints. Objective Data Date Time Temp Pulse Resp B/P Pulse Ox O2 Delivery O2 Flow Rate FiO2 03/24/17 13:07 64 03/24/17 12:01 63 03/24/17 11:58 97.2 68 18 122/76 03/24/17 11:05 68 03/24/17 10:02 65 03/24/17 09:59 97.0 63 18 120/74 97 03/24/17 09:41 65 03/24/17 08:09 63 03/24/17 07:18 75 03/24/17 06:00 68 03/24/17 05:00 60 03/24/17 04:10 64 03/24/17 04:00 64 03/24/17 04:00 97.3 65 22 113/62 97 03/24/17 03:00 62 03/24/17 02:00 64 03/24/17 01:00 66 03/24/17 00:00 62 03/24/17 00:00 97.9 68 20 92/53 97 03/23/17 23:17 64 03/23/17 23:00 64 03/23/17 22:00 66 03/23/17 21:00 66 03/23/17 20:00 98.2 72 18 112/64 96 03/23/17 19:18 74 03/23/17 19:00 72 03/23/17 18:21 18 03/23/17 18:00 74 03/23/17 17:00 72 03/23/17 16:00 75 03/23/17 15:31 98.5 75 20 102/58 96 03/23/17 15:00 74 03/24/17 03/24/17 03/24/17 06:59 14:59 22:59 Intake Total 460 ml 15 ml Balance 460 ml 15 ml Result Diagram: 03/22/17 1220 03/22/17 1335 Laboratory Results Laboratory Tests Test 03/23/17 03/24/17 21:33 05:22 Activated Partial 42.2 SEC 69.9 SEC Thromboplast Time Administered Medications Medications (Trade) Dose Ordered Sig/Lynnette Route PRN Reason Start Time Stop Time Status Last Admin Dose Admin Sodium Chloride (NS Flush) 2 ml UNSCH PRN IVF FLUSH AFTER USING IV ACCESS 03/22/17 12:00 03/22/17 22:16 Divalproex Sodium (Depakote Dr) 250 mg BID PO 03/22/17 21:00 03/24/17 09:14 Gabapentin 300 mg 300 mg BID PO 03/22/17 21:00 03/24/17 09:14 Heparin Sodium/ Dextrose (Heparin-D5W Inj) 250 ml @ 0 mls/hr TITRATE IV 03/22/17 15:15 03/24/17 11:00 Acetaminophen/ Hydrocodone Bitart ([place] 5-325 Mg) 1 tab Q4H PRN PO PAIN 3-6 03/22/17 16:45 03/23/17 12:30 Tizanidine HCl (Zanaflex) 4 mg Q8HR PRN PO MUSCLE SPASM 03/23/17 08:30 03/24/17 04:24 Acetaminophen/ Hydrocodone Bitart ([place] 5-325 Mg) 2 tab Q4H PRN PO PAIN 7-10 03/23/17 12:15 03/24/17 10:36 Warfarin Sodium (Coumadin) 5 mg DAILY@1600 PO 03/23/17 17:00 03/23/17 17:21 Objective Remarks GENERAL: Middle aged female upright in bed in nad. SKIN: Warm and dry. HEAD: Normocephalic. EYES: No injection or drainage. NECK: Supple, trachea midline. CARDIOVASCULAR: Regular rate and rhythm RESPIRATORY: Breath sounds equal bilaterally. No accessory muscle use. GASTROINTESTINAL: Abdomen soft, non-tender, nondistended. EXTREMITIES: No cyanosis. LLE with edema NEUROLOGICAL: No obvious focal deficit. Awake, alert, and oriented x3. Assessment/Plan Problem List: (1) DVT (deep venous thrombosis) Status: Acute Plan: on heparin bridge to coumadin --Recurrent thrombosis. --had first episode of left lower extremity deep venous thrombosis around 2004. --was on Coumadin for several years but the level was difficult to titrate and she was switched to Xarelto. --Recently she saw Dr. Huizar and was sent to the hospital for thrombolytic therapy. During the procedure IVC filter was placed but subsequently removed after the procedure. --After the thrombolytic therapy ultrasound showed flow in her left lower extremity venous system. There was a question that she may have failed Xarelto. She did not want to restart Coumadin at that time and was started on Pradaxa. --On March 12 she has repeat ultrasound which showed mostly chronic thrombus and there was still flow in the venous system. When she was discharged from hospital her clinical symptoms have improved. Her left lower extremity tenderness and edema have improved. However, she developed what sounds like gastroenteritis the next day with nausea and vomiting. She was not able to keep any of her medications down and was laying in bed all day. She developed shortness of breath two days later. -- In this situation it is very difficult to tell if she has failed Pradaxa. I suspect that she formed a clot because she did not take the Pradaxa for a day and she was immobile for about a day and a half. However, at this point I recommend continued heparin drip and bridge her back to Coumadin in the future. Once her symptoms resolve we can discuss whether to rechallenge her with Pradaxa if she wants to get off Coumadin. Assessment 61y/o female with Recurrent left lower extremity venous thrombosis. Diabetes mellitus. Fibromyalgia. Degenerative disk disease. Melanoma removed from the right shoulder a few years ago. Resection of right shoulder melanoma about four years ago. Complete hysterectomy. IVC filter placement and removal. Plan 1. continue heparin bridge to coumadin 2. fs faxed to new patient referrals for follow up in clinic Attending Statement The exam, history, and the medical decision-making described in the above note were completed with the assistance of the mid-level provider. I reviewed and agree with the findings presented. I attest that I had a [id number] encounter with the patient on the same day, and personally performed and documented my assessment and findings in the medical record. Feeling better. SOB improved. LLE pain improved, no edema. Continue heparin and bridge to coumadin. Ana Pulido Mar 24, 2017 14:06 Jose A Waller MD Mar 24, 2017 14:16
[2017-03-24] MEDS: WARFARIN SOD 5 MG TAB PO SCH (15:55)
[2017-03-24] MEDS: SODIUM CHLORIDE 0.9% FLUSH 10 ML FLUSH IVF PRN (21:32)
[2017-03-25] VITALS (14 sets, daily range): BP systolic 99–107; BP diastolic 51–63; PULSE 58–75; RESP 18–20; TEMP 97.9–98.4; O2SAT 95–98
[2017-03-25] MEDS: ACETAMINOPHEN/HYDROcodone 325 MG/5 MG TAB PO PRN ×5 (03:38→22:27)
[2017-03-25] MEDS: HEPARIN-D5W INJ 250 ML IV SCH ×2 (03:39→21:29)
[2017-03-25 05:31] LABS: HEMATOCRIT 39.9 % (35.0-46.0); MEAN CELL VOLUME 88.6 FL (80.0-100.0); MEAN CORPUSCULAR HEMOGLOBIN 29.9 PG (27.0-34.0); MEAN CORPUSCULAR HGB CONC 33.8 % (32.0-36.0); PLATELET COUNT 218 TH/MM3 (150-450); RED CELL DISTRIBUTION WIDTH 12.8 % (11.6-17.2); REVIEW FLAG FINAL; WHITE BLOOD COUNT 4.3 TH/MM3 (4.0-11.0)
[2017-03-25 05:43] LABS: APTT (PATIENT) 68.2 SEC (24.3-30.1); INTERNATIONAL NORMALIZED RATIO 1.1 RATIO; PROTHROMBIN TIME - PATIENT 12.6 SEC (9.8-11.6)
[2017-03-25] MEDS: INSULIN NovoLIN REGULAR SUPPLEMENTAL SCALE SQ SCH ×4 (06:28→21:28)
[2017-03-25] MEDS: DIVALPROEX SODIUM DELAYED RELEASE 250 MG TAB PO SCH ×2 (08:34→21:11)
[2017-03-25] MEDS: GABAPENTIN 300 MG CAP PO SCH ×2 (08:34→21:12)
--- NOTE | 2017-03-25 08:42 | HHI.PR ---
Subjective Remarks f/u ; PE resting comfortably with no distress. has mild right sided chest pain. has mild pain to the left leg. d/w the RN and no acute issues over night. Objective Vitals Vital Signs Date Time Temp Pulse Resp B/P Pulse Ox O2 Delivery O2 Flow Rate FiO2 03/25/17 06:00 64 03/25/17 05:00 66 03/25/17 04:38 20 03/25/17 04:00 Room Air 03/25/17 04:00 98.2 62 18 106/57 98 03/25/17 04:00 58 03/25/17 03:00 60 03/25/17 02:00 60 03/25/17 01:00 62 03/25/17 00:00 72 03/24/17 23:45 98.4 75 18 109/70 95 03/24/17 23:45 Room Air 03/24/17 23:00 70 03/24/17 22:00 64 03/24/17 21:00 66 03/24/17 20:00 65 03/24/17 20:00 98.3 69 18 110/57 97 03/24/17 20:00 Room Air 03/24/17 19:00 70 03/24/17 18:08 65 03/24/17 17:28 70 03/24/17 16:20 70 03/24/17 15:27 65 03/24/17 15:27 98.0 65 18 118/70 97 03/24/17 14:10 66 03/24/17 13:07 64 03/24/17 12:01 63 03/24/17 11:58 97.2 68 18 122/76 03/24/17 11:05 68 03/24/17 10:02 65 03/24/17 09:59 97.0 63 18 120/74 97 03/24/17 09:41 65 I/O 03/24/17 03/24/17 03/24/17 03/25/17 03/25/17 03/25/17 07:00 15:00 23:00 07:00 15:00 23:00 Intake Total 460 ml 15 ml 150 ml 432 ml Balance 460 ml 15 ml 150 ml 432 ml Intake Oral 460 ml 240 ml IV Total 15 ml 150 ml 192 ml # Voids 3 2 # Bowel Movements 0 0 Result Diagram: 03/25/17 0345 03/22/17 1335 Imaging Last Impressions Chest X-Ray 03/22/17 1157 Signed Impressions: Service Date/Time: Wednesday, March 22, 2017 12:22 - CONCLUSION: No acute infiltrate or effusion. Uriel Hagen Jr., MD CT Angiography 03/22/17 1157 Signed Impressions: Service Date/Time: Wednesday, March 22, 2017 13:54 - CONCLUSION: Pulmonary embolus involving right pulmonary artery and lower lobe branches. Ortiz Carter MD Lower Extremity Ultrasound 03/22/17 0000 Signed Impressions: Service Date/Time: Wednesday, March 22, 2017 15:23 - CONCLUSION: Unchanged nonocclusive thrombus throughout the deep venous structures as well as occlusive thrombus involving the greater saphenous vein. Uriel Hagen Jr., MD Objective Remarks GENERAL: This is a well-nourished, well-developed patient, in no apparent distress. CARDIOVASCULAR: Regular rate and regular rhythm without murmurs, gallops, or rubs. RESPIRATORY: Clear to auscultation. Breath sounds equal bilaterally. No wheezes , rales, or rhonchi. GASTROINTESTINAL: Abdomen soft, non-tender, nondistended. Normal, active bowel sounds MUSCULOSKELETAL: mild swelling and tenderness of the left leg NEURO: Alert & Oriented x4 to person, place, time, situation. Moves all ext x4 Procedures none Medications and IVs Current Medications Sodium Chloride (NS Flush) 2 ml UNSCH PRN IVF FLUSH AFTER USING IV ACCESS Last administered on 03/24/17 21:32; Start 03/22/17 at 12:00 Iohexol (Omnipaque 350 Inj) 50 ml STK-MED ONCE IV ; Start 03/22/17 at 14:20; Stop 03/22/17 at 14:21; Status DC Dextrose (D50w (Vial) Inj) 50 ml UNSCH PRN IV HYPOGLYCEMIA-SEE COMMENTS; Start 03/22/17 at 15:00 Glucagon (Glucagon Inj) 1 mg UNSCH PRN OTHER HYPOGLYCEMIA-SEE COMMENTS; Start 03/22/17 at 15:00 Insulin Human Regular (NovoLIN R SUPPLEMENTAL SCALE) 1 ACHS SLIDING SCALE SQ Last administered on 03/25/17 06:28; Start 03/22/17 at 16:00 Ondansetron HCl (Zofran Inj) 4 mg Q8H PRN IV PUSH NAUSEA; Start 03/22/17 at 15: 00 Acetaminophen (Tylenol) 650 mg Q4H PRN PO FEVER/PAIN 1-2; Start 03/22/17 at 15: 00 Divalproex Sodium (Depakote Dr) 250 mg BID PO Last administered on 03/25/17 08 :34; Start 03/22/17 at 21:00 Gabapentin 300 mg 300 mg BID PO Last administered on 03/25/17 08:34; Start 08/27 at 21:00 Heparin Sodium/ Dextrose (Heparin-D5W Inj) 250 ml @ 0 mls/hr TITRATE IV Last administered on 03/25/17 03:39; Start 03/22/17 at 15:15 Acetaminophen/ Hydrocodone Bitart ([place] 5-325 Mg) 1 tab Q4H PRN PO PAIN 3-6 Last administered on 03/25/17 08:35; Start 03/22/17 at 16:45 Tizanidine HCl (Zanaflex) 4 mg Q8HR PRN PO MUSCLE SPASM Last administered on 15:55; Start 03/23/17 at 08:30 Acetaminophen/ Hydrocodone Bitart ([place] 5-325 Mg) 2 tab Q4H PRN PO PAIN 7-10 Last administered on 03/25/17 03:38; Start 03/23/17 at 12:15 Warfarin Sodium 5 mg 5 mg DAILY@1600 PO Last administered on 03/24/17 15:55; Start 03/23/17 at 17:00 Pharmacy Profile Note (Coumadin Consult Pharmacy) 0 ml @ 0 mls/hr UNSCH OTHER ; Start 03/23/17 at 16:30 Patient Medication Teaching (Coumadin Booklet) 1 ONCE ONCE OTHER Last administered on 03/23/17 17:22; Start 03/23/17 at 17:00; Stop 03/23/17 at 17:01 ; Status DC A/P Assessment and Plan A/P - PE with history of recurrent DVT's - patient was recently treated for recent DVT of the left lower extremity with TPA venous doppler of lower extremities with Unchanged nonocclusive thrombus throughout the deep venous structures as well as occlusive thrombus involving the greater saphenous vein patient was on Pradaxa at home- started on heparin drip and coumadin per hematology. will dc heparin drip when INR > 2- consulted pharmacy for coumadin dosing. keep on oxygen as needed to keep O2 sat >90% and continue with pain control. -diabetes mellitus; accu-check with SSI- -history of fibromyalgia- resumed home meds. Discharge Planning when INR is therapeutic. Tenisha Moreno MD Mar 25, 2017 08:42
[2017-03-25] MEDS ORDERED: WARFARIN SOD 7.5 MG TAB PO SCH (16:00)
[2017-03-26] VITALS: BP 102/55; PULSE 64; RESP 16; TEMP 97.6; O2SAT 96
[2017-03-26] MEDS: ACETAMINOPHEN/HYDROcodone 325 MG/5 MG TAB PO PRN ×5 (03:00→20:21)
[2017-03-26 04:00] VITALS: BP 124/55; PULSE 69; RESP 16; TEMP 97.8; O2SAT 96
[2017-03-26] MEDS: INSULIN NovoLIN REGULAR SUPPLEMENTAL SCALE SQ SCH ×4 (07:25→20:29)
[2017-03-26 08:05] VITALS: BP 127/63; PULSE 76; RESP 18; TEMP 97.8; O2SAT 96
[2017-03-26 10:13] LABS: INTERNATIONAL NORMALIZED RATIO 1.8 RATIO; PROTHROMBIN TIME - PATIENT 20.6 SEC (9.8-11.6)
[2017-03-26] MEDS: GABAPENTIN 300 MG CAP PO SCH ×2 (10:24→20:21)
[2017-03-26] MEDS: DIVALPROEX SODIUM DELAYED RELEASE 250 MG TAB PO SCH ×2 (10:25→20:21)
[2017-03-26 12:05] VITALS: BP 117/55; PULSE 64; RESP 18; TEMP 98; O2SAT 98
--- NOTE | 2017-03-26 12:30 | HHI.PR ---
Subjective Remarks No acute events overnight. Afebrile, vital signs stable. No shortness of breath. Patient does complain of right-sided chest pain that is stable. Relieved with medication. Objective Vitals Vital Signs Date Time Temp Pulse Resp B/P Pulse Ox O2 Delivery O2 Flow Rate FiO2 03/26/17 08:05 97.8 76 18 127/63 96 03/26/17 04:00 97.8 69 16 124/55 96 03/26/17 04:00 Room Air 03/26/17 00:00 Room Air 03/26/17 00:00 97.6 64 16 102/55 96 03/25/17 20:00 Room Air 03/25/17 20:00 98.1 72 18 100/51 96 03/25/17 17:00 Room Air 03/25/17 16:40 97.9 67 20 107/53 95 03/25/17 15:30 18 03/25/17 15:20 98.4 73 18 101/57 97 I/O 03/25/17 03/25/17 03/25/17 03/26/17 03/26/17 03/26/17 06:59 14:59 22:59 06:59 14:59 22:59 Intake Total 432 ml 308 ml 240 ml Balance 432 ml 308 ml 240 ml Intake Oral 240 ml 240 ml 240 ml IV Total 192 ml 68 ml # Voids 2 2 2 # Bowel Movements 0 0 0 Result Diagram: 03/25/17 0345 03/22/17 1335 Objective Remarks GENERAL: This is a well-nourished, well-developed patient, in no apparent distress. CARDIOVASCULAR: Regular rate and regular rhythm without murmurs, gallops, or rubs. RESPIRATORY: Clear to auscultation. Breath sounds equal bilaterally. No wheezes , rales, or rhonchi. GASTROINTESTINAL: Abdomen soft, non-tender, nondistended. Normal, active bowel sounds MUSCULOSKELETAL: mild swelling and tenderness of the left leg NEURO: Alert & Oriented x4 to person, place, time, situation. Moves all ext x4 Procedures none A/P Problem List: (1) Pulmonary embolism ICD Code: I26.99 Status: Acute Assessment and Plan - PE with history of recurrent DVT's - patient was recently treated for recent DVT of the left lower extremity with TPA venous doppler of lower extremities with Unchanged nonocclusive thrombus throughout the deep venous structures as well as occlusive thrombus involving the greater saphenous vein patient was on Pradaxa at home- started on heparin drip and coumadin per hematology. will dc heparin drip when INR > 2- consulted pharmacy for coumadin dosing. Satting well on room air -diabetes mellitus; accu-check with SSI- -history of fibromyalgia- resumed home meds. Discharge Planning Once INR greater than 2 Problem Qualifiers (1) Pulmonary embolism: Qualified Code: I26.99 - Other acute pulmonary embolism without acute cor pulmonale Brianna Valenzuela MD R3 Mar 26, 2017 12:30
[2017-03-26] MEDS: HEPARIN-D5W INJ 250 ML IV SCH (15:41)
[2017-03-26 16:05] VITALS: BP 107/53; PULSE 67; RESP 18; TEMP 98.1; O2SAT 97
[2017-03-26 20:00] VITALS: BP 114/57; PULSE 68; RESP 18; TEMP 98.2; O2SAT 96
[2017-03-27] VITALS: BP 99/54; PULSE 60; RESP 18; TEMP 97.7; O2SAT 97
[2017-03-27] MEDS: ACETAMINOPHEN/HYDROcodone 325 MG/5 MG TAB PO PRN ×7 (00:24→22:48)
[2017-03-27 00:33] LABS: APTT (PATIENT) 88.4 SEC (24.3-30.1)
[2017-03-27 04:00] VITALS: BP 101/55; PULSE 65; RESP 18; TEMP 97.9; O2SAT 99
[2017-03-27] MEDS: INSULIN NovoLIN REGULAR SUPPLEMENTAL SCALE SQ SCH ×4 (05:33→22:56)
[2017-03-27 08:00] VITALS: BP 97/54; PULSE 68; RESP 18; TEMP 98; O2SAT 98
[2017-03-27] MEDS: DIVALPROEX SODIUM DELAYED RELEASE 250 MG TAB PO SCH ×2 (09:19→22:49)
[2017-03-27] MEDS: GABAPENTIN 300 MG CAP PO SCH ×2 (09:19→22:49)
[2017-03-27] MEDS ORDERED: DOCUSATE SODIUM 50 MG/SENNA 8.6 MG TAB PO PRN (09:45)
--- NOTE | 2017-03-27 09:59 | HHI.PR ---
Subjective Remarks f/u PE pt states she is still having a lot of pain 7/10 but now down to 5/10 as she got some pain meds 1 hr ago. SOB about the same. denies any nausea or vomiting. still had left lower ext pain. no BM recently per pt. Objective Vitals Vital Signs Date Time Temp Pulse Resp B/P Pulse Ox O2 Delivery O2 Flow Rate FiO2 03/27/17 08:00 98.0 68 18 97/54 98 03/27/17 04:00 97.9 65 18 101/55 99 03/27/17 04:00 Room Air 03/27/17 00:00 Room Air 03/27/17 00:00 97.7 60 18 99/54 97 03/26/17 20:00 98.2 68 18 114/57 96 03/26/17 20:00 Room Air 03/26/17 16:05 98.1 67 18 107/53 97 03/26/17 16:00 Room Air 03/26/17 12:05 98.0 64 18 117/55 98 03/26/17 12:00 Room Air I/O 03/26/17 03/26/17 03/26/17 03/27/17 03/27/17 03/27/17 07:00 15:00 23:00 07:00 15:00 23:00 Intake Total 240 ml 480 ml 834 ml 709 ml Balance 240 ml 480 ml 834 ml 709 ml Intake Oral 240 ml 480 ml 720 ml 600 ml IV Total 114 ml 109 ml # Voids 2 5 4 3 # Bowel Movements 0 0 0 0 Result Diagram: 03/25/17 0345 Imaging Last Impressions Chest X-Ray 03/22/171156 Signed Impressions: Service Date/Time: Wednesday, March 22, 2017 12:22 - CONCLUSION: No acute infiltrate or effusion. Uriel Hagen Jr., MD CT Angiography 03/22/17 115 Signed Impressions: Service Date/Time: Wednesday, March 22, 2017 13:54 - CONCLUSION: Pulmonary embolus involving right pulmonary artery and lower lobe branches. KDelfino Carter MD Lower Extremity Ultrasound 03/22/17 0000 Signed Impressions: Service Date/Time: Wednesday, March 22, 2017 15:23 - CONCLUSION: Unchanged nonocclusive thrombus throughout the deep venous structures as well as occlusive thrombus involving the greater saphenous vein. Uriel Hagen Jr., MD Objective Remarks GENERAL: This is a well-nourished, well-developed patient EYES: EOMI CARDIOVASCULAR: Regular rate and regular rhythm with 2/6 ISHA RESPIRATORY: Clear to auscultation. Breath sounds equal bilaterally. No wheezes GASTROINTESTINAL: Abdomen soft, non-tender, nondistended. Normal, active bowel sounds MUSCULOSKELETAL: mild swelling and tenderness of the left leg NEURO: Alert & Oriented x4. Moves all ext x4 PSYCH: pleasant. answers questions appropriately Procedures none A/P Problem List: (1) Pulmonary embolism ICD Code: I26.99 Status: Acute Assessment and Plan - PE with history of recurrent DVT's - patient was recently treated for recent DVT of the left lower extremity with TPA venous doppler of lower extremities with Unchanged nonocclusive thrombus throughout the deep venous structures as well as occlusive thrombus involving the greater saphenous vein patient was on Pradaxa at home- currently on heparin drip and coumadin per hematology. INR yesterday was 1.8, INR today not yet available. Ordered IS to be used q1hr while awake. will dc heparin drip when INR > 2- consulted pharmacy for coumadin dosing. Satting well on room air. Encouraged her to use IS -diabetes mellitus; accu-check with [facility]- -history of fibromyalgia- on home meds. Discharge Planning d/c home once INR therapeutic . Pt has good outpatient f/u Problem Qualifiers (1) Pulmonary embolism: Qualified Code: I26.99 - Other acute pulmonary embolism without acute cor pulmonale Susan Rangel MD Mar 27, 2017 09:59
--- NOTE | 2017-03-27 11:00 | PD.ONC.PN ---
Subjective Subjective Remarks Afebrile overnight. Patient resting in bed in nad. no complaints. Objective Data Date Time Temp Pulse Resp B/P Pulse Ox O2 Delivery O2 Flow Rate FiO2 03/27/17 08:00 98.0 68 18 97/54 98 03/27/17 04:00 97.9 65 18 101/55 99 03/27/17 04:00 Room Air 03/27/17 00:00 Room Air 03/27/17 00:00 97.7 60 18 99/54 97 03/26/17 20:00 98.2 68 18 114/57 96 03/26/17 20:00 Room Air 03/26/17 16:05 98.1 67 18 107/53 97 03/26/17 16:00 Room Air 03/26/17 12:05 98.0 64 18 117/55 98 03/26/17 12:00 Room Air 03/27/17 03/27/17 03/27/17 07:00 15:00 23:00 Intake Total 709 ml Balance 709 ml Result Diagram: 03/25/17 0345 Laboratory Results Laboratory Tests Test 03/26/17 23:33 Activated Partial 88.4 SEC Thromboplast Time Administered Medications Medications (Trade) Dose Ordered Sig/Lynnette Route PRN Reason Start Time Stop Time Status Last Admin Dose Admin Sodium Chloride (NS Flush) 2 ml UNSCH PRN IVF FLUSH AFTER USING IV ACCESS 03/22/17 12:00 03/24/17 21:32 Divalproex Sodium (Depakote Dr) 250 mg BID PO 03/22/17 21:00 03/27/17 09:19 Gabapentin 300 mg 300 mg BID PO 03/22/17 21:00 03/27/17 09:19 Heparin Sodium/ Dextrose (Heparin-D5W Inj) 250 ml @ 0 mls/hr TITRATE IV 03/22/17 15:15 03/26/17 15:41 Acetaminophen/ Hydrocodone Bitart ([place] 5-325 Mg) 1 tab Q4H PRN PO PAIN 3-6 03/22/17 16:45 03/27/17 09:19 Tizanidine HCl (Zanaflex) 4 mg Q8HR PRN PO MUSCLE SPASM 03/23/17 08:30 03/27/17 09:37 Acetaminophen/ Hydrocodone Bitart ([place] 5-325 Mg) 2 tab Q4H PRN PO PAIN 7-10 03/23/17 12:15 03/27/17 05:20 Warfarin Sodium (Coumadin) 7.5 mg DAILY@1600 PO 03/25/17 16:00 Hold 03/25/17 15:59 Objective Remarks GENERAL: Middle aged female upright in bed in nad. SKIN: Warm and dry. HEAD: Normocephalic. EYES: No injection or drainage. NECK: Supple, trachea midline. CARDIOVASCULAR: Regular rate and rhythm RESPIRATORY: Breath sounds equal bilaterally. No accessory muscle use. GASTROINTESTINAL: Abdomen soft, non-tender, nondistended. EXTREMITIES: No cyanosis. LLE with edema NEUROLOGICAL: awake and alert, normal speech Assessment/Plan Problem List: (1) DVT (deep venous thrombosis) Status: Acute Plan: on heparin bridge to coumadin --Recurrent thrombosis. --had first episode of left lower extremity deep venous thrombosis around 2004. --was on Coumadin for several years but the level was difficult to titrate and she was switched to Xarelto. --Recently she saw Dr. Huizar and was sent to the hospital for thrombolytic therapy. During the procedure IVC filter was placed but subsequently removed after the procedure. --After the thrombolytic therapy ultrasound showed flow in her left lower extremity venous system. There was a question that she may have failed Xarelto. She did not want to restart Coumadin at that time and was started on Pradaxa. --On March 12 she has repeat ultrasound which showed mostly chronic thrombus and there was still flow in the venous system. When she was discharged from hospital her clinical symptoms have improved. Her left lower extremity tenderness and edema have improved. However, she developed what sounds like gastroenteritis the next day with nausea and vomiting. She was not able to keep any of her medications down and was laying in bed all day. She developed shortness of breath two days later. -- In this situation it is very difficult to tell if she has failed Pradaxa. I suspect that she formed a clot because she did not take the Pradaxa for a day and she was immobile for about a day and a half. However, at this point I recommend continued heparin drip and bridge her back to Coumadin in the future. Once her symptoms resolve we can discuss whether to rechallenge her with Pradaxa if she wants to get off Coumadin. --fs has been faxed to npr Assessment 61y/o female with Recurrent left lower extremity venous thrombosis. Diabetes mellitus. Fibromyalgia. Degenerative disk disease. Melanoma removed from the right shoulder a few years ago. Resection of right shoulder melanoma about four years ago. Complete hysterectomy. IVC filter placement and removal. Plan 1. continue heparin bridge to coumadin 2. monitor CBC 3. once discharged, we will follow her in the clinic Attending Statement The exam, history, and the medical decision-making described in the above note were completed with the assistance of the mid-level provider. I reviewed and agree with the findings presented. I attest that I had a [id number] encounter with the patient on the same day, and personally performed and documented my assessment and findings in the medical record. Right chest wall pain, feels better with heat pad. No SOB. No LE edema. No bleeding noted. Continue heaprin and bridge to coumadin with goal INR 2-3. Ana Pulido Mar 27, 2017 11:00 Jose A Waller MD Mar 27, 2017 14:31
[2017-03-27 11:28] LABS: APTT (PATIENT) 44.1 SEC (24.3-30.1); INTERNATIONAL NORMALIZED RATIO 1.5 RATIO; PROTHROMBIN TIME - PATIENT 17.3 SEC (9.8-11.6)
[2017-03-27 12:00] VITALS: BP 106/58; PULSE 61; RESP 18; TEMP 98; O2SAT 98
[2017-03-27] MEDS: HEPARIN-D5W INJ 250 ML IV SCH (14:40)
[2017-03-27 16:00] VITALS: BP 116/57; PULSE 66; RESP 18; TEMP 97.6; O2SAT 97
[2017-03-27] MEDS ORDERED: WARFARIN SOD 2.5 MG TAB PO ONE (16:00)
[2017-03-27] MEDS: WARFARIN SOD 5 MG TAB PO SCH (17:06)
[2017-03-27 20:25] VITALS: BP 105/52; PULSE 71; RESP 18; TEMP 97.3; O2SAT 96
[2017-03-27 21:14] LABS: APTT (PATIENT) 40.9 SEC (24.3-30.1)
[2017-03-28 00:42] VITALS: BP 102/58; PULSE 73; RESP 18; TEMP 98; O2SAT 96
[2017-03-28] MEDS: ACETAMINOPHEN/HYDROcodone 325 MG/5 MG TAB PO PRN ×5 (03:18→22:22)
[2017-03-28 04:51] VITALS: BP 118/55; PULSE 59; RESP 18; TEMP 98.2; O2SAT 97
[2017-03-28] MEDS: INSULIN NovoLIN REGULAR SUPPLEMENTAL SCALE SQ SCH ×3 (06:29→21:22)
[2017-03-28 06:47] LABS: HEMATOCRIT 39.5 % (35.0-46.0); MEAN CORPUSCULAR HEMOGLOBIN 29.7 PG (27.0-34.0); MEAN CORPUSCULAR HGB CONC 33.3 % (32.0-36.0); PLATELET COUNT 178 TH/MM3 (150-450); RED BLOOD COUNT 4.44 MIL/MM3 (4.00-5.30); RED CELL DISTRIBUTION WIDTH 12.9 % (11.6-17.2); REVIEW FLAG FINAL; WHITE BLOOD COUNT 5.6 TH/MM3 (4.0-11.0)
[2017-03-28 07:07] LABS: APTT (PATIENT) 76.5 SEC (24.3-30.1); INTERNATIONAL NORMALIZED RATIO 1.7 RATIO; PROTHROMBIN TIME - PATIENT 18.8 SEC (9.8-11.6)
[2017-03-28 08:00] VITALS: BP 113/56; PULSE 54; RESP 18; TEMP 97.4; O2SAT 97
[2017-03-28] MEDS: DIVALPROEX SODIUM DELAYED RELEASE 250 MG TAB PO SCH ×2 (08:32→21:18)
[2017-03-28] MEDS: GABAPENTIN 300 MG CAP PO SCH ×2 (08:32→21:18)
--- NOTE | 2017-03-28 09:44 | PD.ONC.PN ---
Subjective Subjective Remarks Afebrile overnight. Having right chest wall pain, worse with inspiration. Otherwise no complaints. No bleeding. Tolerating heparin/coumadin. Objective Data Date Time Temp Pulse Resp B/P Pulse Ox O2 Delivery O2 Flow Rate FiO2 03/28/17 08:00 97.4 54 18 113/56 97 03/28/17 04:51 98.2 59 18 118/55 97 03/28/17 00:42 98.0 73 18 102/58 96 03/28/17 00:00 Room Air 03/27/17 20:25 97.3 71 18 105/52 96 03/27/17 20:00 Room Air 03/27/17 16:00 97.6 66 18 116/57 97 03/27/17 12:00 98.0 61 18 106/58 98 03/28/17 03/28/17 03/28/17 06:59 14:59 22:59 Intake Total 240 ml Balance 240 ml Result Diagram: 03/28/17511 Laboratory Results Laboratory Tests Test 03/27/17 03/27/17 03/28/17 10:36 19:59 05:12 Prothrombin Time 17.3 SEC 18.8 SEC Prothromb Time International 1.5 RATIO 1.7 RATIO Ratio Activated Partial 44.1 SEC 40.9 SEC 76.5 SEC Thromboplast Time White Blood Count 5.6 TH/MM3 Red Blood Count 4.44 MIL/MM3 Hemoglobin 13.2 GM/DL Hematocrit 39.5 % Mean Corpuscular Volume 89.0 FL Mean Corpuscular Hemoglobin 29.7 PG Mean Corpuscular Hemoglobin 33.3 % Concent Red Cell Distribution Width 12.9 % Platelet Count 178 TH/MM3 Mean Platelet Volume 9.4 FL Administered Medications Medications (Trade) Dose Ordered Sig/Lynnette Route PRN Reason Start Time Stop Time Status Last Admin Dose Admin Sodium Chloride (NS Flush) 2 ml UNSCH PRN IVF FLUSH AFTER USING IV ACCESS 03/22/17 12:00 03/24/17 21:32 Divalproex Sodium (Depakote Dr) 250 mg BID PO 03/22/17 21:00 03/28/17 08:32 Gabapentin 300 mg 300 mg BID PO 03/22/17 21:00 03/28/17 08:32 Heparin Sodium/ Dextrose (Heparin-D5W Inj) 250 ml @ 0 mls/hr TITRATE IV 03/22/17 15:15 03/27/17 14:40 Acetaminophen/ Hydrocodone Bitart ([place] 5-325 Mg) 1 tab Q4H PRN PO PAIN 3-6 03/22/17 16:45 03/28/17 07:33 Tizanidine HCl (Zanaflex) 4 mg Q8HR PRN PO MUSCLE SPASM 03/23/17 08:30 03/28/17 06:28 Acetaminophen/ Hydrocodone Bitart ([place] 5-325 Mg) 2 tab Q4H PRN PO PAIN 7-10 03/23/17 12:15 03/28/17 03:18 Warfarin Sodium (Coumadin) 5 mg DAILY@1600 PO 03/27/17 16:00 03/27/17 17:06 Objective Remarks GENERAL: Middle aged female sitting up in bed SKIN: Warm and dry. HEAD: Normocephalic. EYES: No injection or drainage. NECK: Supple, trachea midline. CARDIOVASCULAR: Regular rate and rhythm RESPIRATORY: Breath sounds equal bilaterally. No accessory muscle use. GASTROINTESTINAL: Abdomen soft, non-tender, nondistended. EXTREMITIES: No cyanosis. LLE with edema NEUROLOGICAL: awake and alert, normal speech. moving all extremities. Assessment/Plan Problem List: (1) DVT (deep venous thrombosis) Status: Acute Plan: on heparin bridge to coumadin --Recurrent thrombosis. --had first episode of left lower extremity deep venous thrombosis around 2004. --was on Coumadin for several years but the level was difficult to titrate and she was switched to Xarelto. --Recently she saw Dr. Huizar and was sent to the hospital for thrombolytic therapy. During the procedure IVC filter was placed but subsequently removed after the procedure. --After the thrombolytic therapy ultrasound showed flow in her left lower extremity venous system. There was a question that she may have failed Xarelto. She did not want to restart Coumadin at that time and was started on Pradaxa. --On March 12 she has repeat ultrasound which showed mostly chronic thrombus and there was still flow in the venous system. When she was discharged from hospital her clinical symptoms have improved. Her left lower extremity tenderness and edema have improved. However, she developed what sounds like gastroenteritis the next day with nausea and vomiting. She was not able to keep any of her medications down and was laying in bed all day. She developed shortness of breath two days later. -- In this situation it is very difficult to tell if she has failed Pradaxa. I suspect that she formed a clot because she did not take the Pradaxa for a day and she was immobile for about a day and a half. However, at this point I recommend continued heparin drip and bridge her back to Coumadin in the future. Once her symptoms resolve we can discuss whether to rechallenge her with Pradaxa if she wants to get off Coumadin. --fs has been faxed to npr Assessment 61y/o female with Recurrent left lower extremity venous thrombosis. Diabetes mellitus. Fibromyalgia. Degenerative disk disease. Melanoma removed from the right shoulder a few years ago. Resection of right shoulder melanoma about four years ago. Complete hysterectomy. IVC filter placement and removal. Plan 1. continue heparin/coumadin 2. monitor CBC Attending Statement The exam, history, and the medical decision-making described in the above note were completed with the assistance of the mid-level provider. I reviewed and agree with the findings presented. I attest that I had a [id number] encounter with the patient on the same day, and personally performed and documented my assessment and findings in the medical record. Still has left chest wall pain. No SOB. No LE edema. Continue heparin and bridge to coumadin with goal INR 2-3. Ana Pulido Mar 28, 2017 09:44 Jose A Waller MD Mar 28, 2017 16:49
[2017-03-28 12:00] VITALS: BP 119/56; PULSE 56; RESP 18; TEMP 98.3; O2SAT 99
--- NOTE | 2017-03-28 13:13 | HHI.PR ---
Subjective Remarks Patient tells me he she continues to have chest pain with deep inspiration. Heat pads are helping and pain pills are helping whenever she takes them, they bring the pain down to 5 out of 10. Denies any shortness of breath, nausea or vomiting. She has been moving around and ambulating. Objective Vitals Vital Signs Date Time Temp Pulse Resp B/P Pulse Ox O2 Delivery O2 Flow Rate FiO2 03/28/17 08:00 95 Room Air 03/28/17 08:00 97.4 54 18 113/56 97 03/28/17 04:51 98.2 59 18 118/55 97 03/28/17 00:42 98.0 73 18 102/58 96 03/28/17 00:00 Room Air 03/27/17 20:25 97.3 71 18 105/52 96 03/27/17 20:00 Room Air 03/27/17 16:00 97.6 66 18 116/57 97 I/O 03/27/17 03/27/17 03/27/17 03/28/17 03/28/17 03/28/17 06:59 14:59 22:59 06:59 14:59 22:59 Intake Total 709 ml 960 ml 240 ml Balance 709 ml 960 ml 240 ml Intake Oral 600 ml 960 ml 240 ml IV Total 109 ml # Voids 3 3 2 # Bowel Movements 0 0 Result Diagram: 03/28/17 0512 Imaging Last Impressions Chest X-Ray 03/22/171156 Signed Impressions: Service Date/Time: Wednesday, March 22, 2017 12:22 - CONCLUSION: No acute infiltrate or effusion. Uriel Hagen Jr., MD CT Angiography 03/22/17 115 Signed Impressions: Service Date/Time: Wednesday, March 22, 2017 13:54 - CONCLUSION: Pulmonary embolus involving right pulmonary artery and lower lobe branches. Ortiz Carter MD Lower Extremity Ultrasound 03/22/17 0000 Signed Impressions: Service Date/Time: Wednesday, March 22, 2017 15:23 - CONCLUSION: Unchanged nonocclusive thrombus throughout the deep venous structures as well as occlusive thrombus involving the greater saphenous vein. Uriel Hagen Jr., MD Objective Remarks GENERAL: This is a well-nourished, well-developed patient EYES: EOMI CARDIOVASCULAR: Regular rate and regular rhythm with 1-2/6 ISHA RESPIRATORY: Clear to auscultation. Breath sounds equal bilaterally. No wheezes GASTROINTESTINAL: Abdomen soft, non-tender, nondistended. Normal, active bowel sounds MUSCULOSKELETAL: mild swelling and tenderness of the left leg NEURO: Alert & Oriented x4. Moves all ext x4 PSYCH: pleasant. answers questions appropriately Procedures none A/P Problem List: (1) Pulmonary embolism ICD Code: I26.99 Status: Acute Assessment and Plan - PE with history of recurrent DVT's - patient was recently treated for recent DVT of the left lower extremity with TPA venous doppler of lower extremities with Unchanged nonocclusive thrombus throughout the deep venous structures as well as occlusive thrombus involving the greater saphenous vein patient was on Pradaxa at home- currently on heparin drip and coumadin per hematology. INR today 1.7. continue IS to be used q1hr while awake. will dc heparin drip when INR > 2- consulted pharmacy for coumadin dosing. Satting well on room air. Encouraged her to use IS -diabetes mellitus; accu-check with [facility]- -history of fibromyalgia- on home meds. Discharge Planning d/c home once INR therapeutic . Pt has good outpatient f/u Problem Qualifiers (1) Pulmonary embolism: Qualified Code: I26.99 - Other acute pulmonary embolism without acute cor pulmonale Susan Rangel MD Mar 28, 2017 13:13
[2017-03-28 13:26] LABS: APTT (PATIENT) 65.3 SEC (24.3-30.1)
[2017-03-28] MEDS: WARFARIN SOD 5 MG TAB PO SCH (15:39)
[2017-03-28] MEDS: HEPARIN-D5W INJ 250 ML IV SCH (15:45)
[2017-03-28 16:00] VITALS: BP 115/55; PULSE 68; RESP 18; TEMP 98.2; O2SAT 97
[2017-03-28 18:58] LABS: APTT (PATIENT) 56.1 SEC (24.3-30.1)
[2017-03-28 20:00] VITALS: BP 118/58; PULSE 72; RESP 16; TEMP 97.8; O2SAT 98
[2017-03-29] VITALS: BP 117/59; PULSE 62; RESP 16; TEMP 97.3; O2SAT 96
[2017-03-29] MEDS: ACETAMINOPHEN/HYDROcodone 325 MG/5 MG TAB PO PRN ×4 (02:48→14:27)
[2017-03-29 05:00] VITALS: BP 112/56; PULSE 56; RESP 16; TEMP 98.2; O2SAT 97
[2017-03-29] MEDS: INSULIN NovoLIN REGULAR SUPPLEMENTAL SCALE SQ SCH ×3 (06:33→17:38)
[2017-03-29 07:03] LABS: INTERNATIONAL NORMALIZED RATIO 2.2 RATIO; PROTHROMBIN TIME - PATIENT 24.8 SEC (9.8-11.6)
[2017-03-29 08:00] VITALS: BP 125/58; PULSE 69; RESP 18; TEMP 98.5; O2SAT 96
[2017-03-29] MEDS: GABAPENTIN 300 MG CAP PO SCH (10:11)
[2017-03-29] MEDS: DIVALPROEX SODIUM DELAYED RELEASE 250 MG TAB PO SCH (10:11)
--- NOTE | 2017-03-29 11:13 | PD.ONC.PN ---
Subjective Subjective Remarks Ambulate around the hallway yesterday without difficulty. Right chest wall pain improving. Objective Data Date Time Temp Pulse Resp B/P Pulse Ox O2 Delivery O2 Flow Rate FiO2 03/29/17 08:00 98.5 69 18 125/58 96 03/29/17 05:00 98.2 56 16 112/56 97 03/29/17 00:00 97.3 62 16 117/59 96 03/28/17 20:00 97.8 72 16 118/58 98 03/28/17 20:00 Room Air 03/28/17 16:00 98.2 68 18 115/55 97 03/28/17 12:00 98.3 56 18 119/56 99 03/29/17 03/29/17 03/29/17 07:00 15:00 23:00 Intake Total 184 ml Balance 184 ml Result Diagram: 03/28/17511 Laboratory Results Laboratory Tests Test 03/28/17 03/28/17 03/29/17 12:40 18:34 05:44 Activated Partial 65.3 SEC 56.1 SEC Thromboplast Time Prothrombin Time 24.8 SEC Prothromb Time International 2.2 RATIO Ratio Administered Medications Medications (Trade) Dose Ordered Sig/Lynnette Route PRN Reason Start Time Stop Time Status Last Admin Dose Admin Sodium Chloride (NS Flush) 2 ml UNSCH PRN IVF FLUSH AFTER USING IV ACCESS 03/22/17 12:00 03/24/17 21:32 Divalproex Sodium (Depakote Dr) 250 mg BID PO 03/22/17 21:00 03/29/17 10:11 Gabapentin 300 mg 300 mg BID PO 03/22/17 21:00 03/29/17 10:11 Heparin Sodium/ Dextrose (Heparin-D5W Inj) 250 ml @ 0 mls/hr TITRATE IV 03/22/17 15:15 03/28/17 15:45 Acetaminophen/ Hydrocodone Bitart ([place] 5-325 Mg) 1 tab Q4H PRN PO PAIN 3-6 03/22/17 16:45 03/28/17 17:48 Tizanidine HCl (Zanaflex) 4 mg Q8HR PRN PO MUSCLE SPASM 03/23/17 08:30 03/29/17 10:09 Acetaminophen/ Hydrocodone Bitart ([place] 5-325 Mg) 2 tab Q4H PRN PO PAIN 7-10 03/23/17 12:15 03/29/17 10:11 Warfarin Sodium (Coumadin) 5 mg DAILY@1600 PO 03/27/17 16:00 03/28/17 15:39 Objective Remarks GENERAL: Well-nourished, well-developed patient. SKIN: Warm and dry. HEAD: Normocephalic. EYES: No scleral icterus. No injection or drainage. NECK: Supple, trachea midline. No JVD or lymphadenopathy. LYMPHATIC: No adenopathy. CARDIOVASCULAR: Regular rate and rhythm without murmurs. RESPIRATORY: Breath sounds equal bilaterally. No accessory muscle use. GASTROINTESTINAL: Abdomen soft, non-tender, nondistended. EXTREMITIES: No cyanosis, or edema. Left LE slightly tender around the ankle stable. MUSCULOSKELETAL: Adequate muscle tone. Right chest wall pain improved. NEUROLOGICAL: No obvious focal deficit. Awake, alert, and oriented x3. PSYCHIATRIC: Appropriate mood and affect; insight and judgment normal. Assessment/Plan Problem List: (1) DVT (deep venous thrombosis) Status: Acute Plan: on heparin bridge to coumadin --Recurrent thrombosis. --had first episode of left lower extremity deep venous thrombosis around 2004. --was on Coumadin for several years but the level was difficult to titrate and she was switched to Xarelto. --Recently she saw Dr. Huizar and was sent to the hospital for thrombolytic therapy. During the procedure IVC filter was placed but subsequently removed after the procedure. --After the thrombolytic therapy ultrasound showed flow in her left lower extremity venous system. There was a question that she may have failed Xarelto. She did not want to restart Coumadin at that time and was started on Pradaxa. --On March 12 she has repeat ultrasound which showed mostly chronic thrombus and there was still flow in the venous system. When she was discharged from hospital her clinical symptoms have improved. Her left lower extremity tenderness and edema have improved. However, she developed what sounds like gastroenteritis the next day with nausea and vomiting. She was not able to keep any of her medications down and was laying in bed all day. She developed shortness of breath two days later. -- In this situation it is very difficult to tell if she has failed Pradaxa. I suspect that she formed a clot because she did not take the Pradaxa for a day and she was immobile for about a day and a half. However, at this point I recommend continued heparin drip and bridge her back to Coumadin in the future. Once her symptoms resolve we can discuss whether to rechallenge her with Pradaxa if she wants to get off Coumadin. --fs has been faxed to npr Assessment 61y/o female with Recurrent left lower extremity venous thrombosis. Diabetes mellitus. Fibromyalgia. Degenerative disk disease. Melanoma removed from the right shoulder a few years ago. Resection of right shoulder melanoma about four years ago. Complete hysterectomy. IVC filter placement and removal. Plan 1. continue heparin/coumadin 2. monitor CBC 3. Can be d/c once INR therapeutic. Jose A Waller MD Mar 29, 2017 11:13
[2017-03-29 11:15] LABS: APTT (PATIENT) 58.3 SEC (24.3-30.1)
[2017-03-29 12:00] VITALS: BP 108/61; PULSE 60; RESP 18; TEMP 98; O2SAT 99
[2017-03-29] MEDS: HEPARIN-D5W INJ 250 ML IV SCH (14:15)
[2017-03-29] MEDS ORDERED: HYDR-3366 PO (15:53)
[2017-03-29] MEDS ORDERED: COUM5TAB PO (15:53)
--- NOTE | 2017-03-29 15:53 | HHI.DS ---
Discharge Summary Admission Date Mar 22, 2017 at 14:51 Discharge Date: Mar 29, 2017 Admitting Diagnosis R Pulmonary artery PE; mult PE RLL; chest pain; dyspnea; LLE DVT (1) Pulmonary embolism ICD Code: I26.99 Diagnosis: Principal Procedures none Brief History - From Admission patient is a 61 y/o female with history of DVT- who was recently treated for DVT of the left lower extremity- with TPA- presented to ER with shortness of breath. she says that she started to have exertional dyspnea after a few days ago. sob was associated with pleuritic chest pain.she denies any cough but had a low grade fever a couple of days ago. she was seen by earlier today when she was advised to come to the hospital. she was found to have PE. she says that she was on Xarelto for her DVT for a long time- this was switched to Pradaxa last admission. CBC/BMP: 03/28/17 0512 Significant Findings Laboratory Tests Test 03/26/17 03/27/17 03/27/17 03/28/17 23:33 10:36 19:59 05:12 Activated Partial 88.4 SEC 44.1 SEC 40.9 SEC 76.5 SEC Thromboplast Time (24.3-30.1) (24.3-30.1) (24.3-30.1) (24.3-30.1) Prothrombin Time 17.3 SEC 18.8 SEC (9.8-11.6) (9.8-11.6) Test 03/28/17 03/28/17 03/29/17 03/29/17 12:40 18:34 05:44 10:28 Activated Partial 65.3 SEC 56.1 SEC 58.3 SEC Thromboplast Time (24.3-30.1) (24.3-30.1) (24.3-30.1) Prothrombin Time 24.8 SEC (9.8-11.6) Imaging Last Impressions Chest X-Ray 03/22/17 [id number] Signed Impressions: Service Date/Time: Wednesday, March 22, 2017 12:22 - CONCLUSION: No acute infiltrate or effusion. Uriel Hagen Jr., MD CT Angiography 03/22/17 1157 Signed Impressions: Service Date/Time: Wednesday, March 22, 2017 13:54 - CONCLUSION: Pulmonary embolus involving right pulmonary artery and lower lobe branches. Ortiz Carter MD Lower Extremity Ultrasound 03/22/17 0000 Signed Impressions: Service Date/Time: Wednesday, March 22, 2017 15:23 - CONCLUSION: Unchanged nonocclusive thrombus throughout the deep venous structures as well as occlusive thrombus involving the greater saphenous vein. Uriel Hagen Jr., MD PE at Discharge GENERAL: This is a well-nourished, well-developed patient EYES: EOMI CARDIOVASCULAR: Regular rate and regular rhythm with 1-2/6 ISHA RESPIRATORY: Clear to auscultation. Breath sounds equal bilaterally. No wheezes GASTROINTESTINAL: Abdomen soft, non-tender, nondistended. Normal, active bowel sounds MUSCULOSKELETAL: mild swelling and tenderness of the left leg NEURO: Alert & Oriented x4. Moves all ext x4 PSYCH: pleasant. answers questions appropriately Pt update on day of discharge Patient feeling okay. Hoping to go home soon. Still has pain on her chest with deep inspiration. She tells me she has been ambulating around and is excited about this. Denies any nausea or vomiting. Rest of breath has not worsened and is improving. Hospital Course - PE with history of recurrent DVT's - patient was recently treated for recent DVT of the left lower extremity with TPA venous doppler of lower extremities with Unchanged nonocclusive thrombus throughout the deep venous structures as well as occlusive thrombus involving the greater saphenous vein patient was on Pradaxa at home- currently on heparin drip and coumadin per hematology. INR today 2.2. continue IS to be used q1hr while awake. Hematology cleared patient to go home once her INR is greater than 2. Satting well on room air. We'll check a walk test. If she passes she will go without oxygen however if she fails we will order home oxygen for her. Pt Condition on Discharge: Stable Discharge Disposition: Discharge Home Discharge Time: > 30 minutes Discharge Instructions DIET: Follow Instructions for: Heart Healthy Diet, Diabetic Diet Activities you can perform: Regular-No Restrictions Follow up Referrals: Hematology - 2 Weeks PCP Follow-up - 1 Week New Orders: PT/INR - 2-3 Days New Medications: Hydrocodone-Acetaminophen ([place]) 10-325 Mg Tab 1 TAB PO Q6H PRN PAIN #30 Ref 0 TAB Warfarin (Coumadin) 5 Mg Tab 5 MG PO DAILY@1600 Days 30 TAB Continued Medications: Canagliflozin (Invokana) 300 Mg Tab 300 MG PO DAILY Take before 1st meal of day. Blood Sugar Management #30 Ref [address] (Divalproex DR) 250 Mg Tabdr 250 MG PO BID Control Seizures #60 Ref 0 TAB Gabapentin (Gabapentin) 300 Mg Cap 300 MG PO BID #60 Ref 0 CAP Glipizide (Glipizide) 5 Mg Tab 5 MG PO DAILY Take 30 minutes before a meal Blood Sugar Management #30 Ref 0 TAB Insulin Aspart Inj (Novolog Inj) 100 Unit/Ml Inj 1 UNIT SQ Q4HR dm Days 30 INJECTION Insulin Detemir Inj (Levemir Inj) 1,000 unit/ 10 ML Vial 7 UNITS SQ Q12HR dm Days 30 INJECTION Metformin (Metformin) 500 Mg Tab 500 MG PO DAILY With a meal Blood Sugar Management #30 Ref 0 TAB Tizanidine (Tizanidine) 4 Mg Cap 4 MG PO TID Muscle Spasm Ref 0 CAP Discontinued Medications: Dabigatran (Pradaxa) 150 Mg Cap 150 MG PO Q12H anticoag #60 CAP Hydrocodone-Acetaminophen (Lortab) 10-325 Mg Tab 1 TAB PO Q6H PRN PAIN Ref 0 TAB Susan Rangel MD Mar 29, 2017 15:53
[2017-03-29 16:00] VITALS: BP 105/70; PULSE 61; RESP 18; TEMP 98; O2SAT 98
[2017-03-29] MEDS: WARFARIN SOD 5 MG TAB PO SCH (17:21)
== END 2017-03-29 17:47 | disposition home or self-care (01) | DRG 176 ==
LOC: NEPC 11:31 → NEDA 14:51 → HCIS 19:18 → N04A 03-25 16:52
PROVIDERS: ADMIT Family Medicine; ATTEND Family Medicine
DX: I26.99 Other pulmonary embolism without acute cor pulmonale (principal); I82.5Z2 Chronic embolism and thrombosis of unspecified deep veins of left distal lower extremity; I45.10 Unspecified right bundle-branch block; E11.9 Type 2 diabetes mellitus without complications; M79.7 Fibromyalgia; M19.90 Unspecified osteoarthritis, unspecified site; F17.210 Nicotine dependence, cigarettes, uncomplicated; Z79.01 Long term (current) use of anticoagulants; Z79.4 Long term (current) use of insulin; Z85.820 Personal history of malignant melanoma of skin; Z86.718 Personal history of other venous thrombosis and embolism; Z86.73 Personal history of transient ischemic attack (TIA), and cerebral infarction without residual deficits; Z88.1 Allergy status to other antibiotic agents; Z88.2 Allergy status to sulfonamides
CPT/HCPCS: 71010; 71275; 80048; 81001; 82550; 82948; 84484; 85025; 85027; 85610; 85730; 93005; 93971; 94150; 94620; J1644; Q9967